=== PATIENT | male | born 1940 | race Caucasian/White ===

== ENCOUNTER 2022-03-05 11:05 | Inpatient (IN) ==
[2022-03-05] MEDS ORDERED: SODIUM CHLORIDE 0.9% 500 ML IV STA (11:23)
[2022-03-05] MEDS ORDERED: ONDANSETRON INJ 2 MG/ML 2 ML VIAL IV STA (11:23)
[2022-03-05] MEDS ORDERED: MoRPHine SULFATE 4 MG/ML 1 ML CARP\\VIAL IV PRN (11:24)
[2022-03-05] MEDS ORDERED: MoRPHine SULFATE 4 MG/ML 1 ML CARP\\VIAL IV STA (11:24)
--- NOTE | 2022-03-05 11:29 | Emergency Department Note ---
Impression & Plan Subcapital fracture of right hip ED Provider Note NAME: SHIRA CISNEROS AGE: 81 SEX: M : 1940 ARRIVES VIA: Ambulance INFORMANT: Patient, ED PROVIDER(S): Wilner Carlos DO CHIEF COMPLAINT: Fall HPI: The patient is an 81-year-old male who presents emergency department for an evaluation of hip pain. The patient had a fall from a seated position and landed on his right side. He has very severe right hip pain and is not able to stand. He presented via BLS. The patient did not strike his head. He denies having any chest pain or difficulty breathing at this time. Patient states the pain is moderate to severe and worsens with any ambulation or trying to move his right hip. Has had no fevers. He has been compliant with his usual outpatient medications. He was scheduled to have some testing done today including a chest x-ray. He states he has had no cough. He denies having any lower extremity swelling pain or numbness. ROS: See above HPI for pertinent positives & negatives. A total of 10 systems reviewed and were otherwise negative. PAST MEDICAL HISTORY: See Below PAST SURGICAL HISTORY: See Below FAMILY HISTORY: See Below SOCIAL HISTORY: See Below HOME MEDICATIONS: See Below ALLERGIES: See Below VITALS: See Below PHYSICAL EXAMINATION: GENERAL: The patient is awake and alert. He is somewhat anxious appearing and appears to be uncomfortable. EYES: The conjunctivae are clear. The pupils are round and reactive. EARS, NOSE, MOUTH AND THROAT: The nose is without any evidence of any deformity. NECK: The neck is nontender and supple. RESPIRATORY: Normal respiratory effort is noted there is no evidence of wheezing rhonchi or rales CARDIOVASCULAR: Regular rate and rhythm was noted to auscultation. Systolic murmur was appreciated. GASTROINTESTINAL: The abdomen is soft. Abdomen is nontender. MUSCULOSKELETAL/EXTREMITIES: The right lower extremity is shortened but not significantly rotated. The patient resists any range of motion testing of the right hip. There is no deformity of the thigh. SKIN: There is no obvious evidence of any rash. Pedal edema was noted. Skin is warm and dry. Pulses are symmetric in both feet. NEUROLOGIC: Patient is awake alert and oriented x3 MEDICAL DECISION MAKING: The patient is an 81-year-old male who presented to the emergency department for an evaluation after a fall. The patient's history and physical exam appear to be consistent with a right hip fracture. X-rays were obtained and do appear to be consistent with right hip fracture. I discussed patient's laboratory and radiographic studies with him. He was treated with IV pain medication in the emergency department. I discussed his condition with the on-call orthopedic physician as well as the on-call [facility] hospitalist. They have agreed to evaluate the patient in the emergency department for further management and disposition. Triage Nursing notes reviewed. Prior medical records reviewed Vital Signs: reviewed and remarkable for bradycardia. Differential diagnosis: Fracture, subluxation, dislocation, contusion, ligamentous injury, neurovascular, compartment syndrome, rhabdomyolysis, as well as other pathologies. ER treatment provided: See below Diagnostics interpreted by me: ECG: EKG was obtained in the emergency department. My interpretation is sinus bradycardia 57 bpm. There is no ectopy. Right bundle-branch block pattern was noted. This was compared to a tracing from January 19, 2013. Bundle branch block is new compared to the earlier tracing. Otherwise no changes were noted. Cardiac Monitoring: An order was placed for continuous cardiac monitoring. The monitor shows a rate of 55 bpm with sinus rhythm. Laboratory studies: As stated above and show below. Imaging studies: See below Consultation(s): I discussed this case with Dr. Bhakta who is on-call for the orthopedic group that the patient's family requested. I discussed this case with Dr. Simon who is on-call for the [facility]ist group. Past Med/Surg History Medical History COPD (chronic obstructive pulmonary disease) Coronary artery disease Diabetes High cholesterol Hypertension Surgical History S/P CABG (coronary artery bypass graft) Social History Smoking Status: Never smoker Feels Safe at Home: Yes Allergies Allergies Allergy/AdvReac Type Severity Reaction Status Date / Time Penicillins Allergy Intermediate RASH ALONE Verified 03/05/22 15:20 aspirin Allergy Unknown BUT Verified 03/05/22 15:20 PATIENT TAKES AGGRENOX AT HOME? Home Meds Home Medications Medication Instructions Recorded Confirmed albuterol sulfate 90 mcg/actuation 1 puff INHALATION DAILY 03/05/22 03/05/22 aerosol inhaler aspirin 25 mg-dipyridamole 200 mg 1 cap PO DAILY 03/05/22 03/05/22 capsule,ext.release 12 hr multiphase cholecalciferol (vitamin D3) 1,250 1,250 mcg PO WK 03/05/22 03/05/22 mcg (50,000 unit) capsule dexamethasone 4 mg tablet 4 mg PO DAILY 03/05/22 03/05/22 furosemide 40 mg tablet 40 mg PO QAM 03/05/22 03/05/22 insulin aspart U-100 100 unit/mL 20 unit SUBCUT TID 03/05/22 03/05/22 (3 mL) subcutaneous pen (Novolog Flexpen U-100 Insulin aspart) insulin aspart U-100 100 unit/mL 40 unit SUBCUT HS 03/05/22 03/05/22 (3 mL) subcutaneous pen (Novolog Flexpen U-100 Insulin aspart) metoprolol succinate 50 mg 50 mg PO BID 03/05/22 03/05/22 tablet,extended release 24 hr nitroglycerin 0.4 mg sublingual 0.4 mg SUBLINGUAL DAILY PRN 03/05/22 03/05/22 tablet pantoprazole 40 mg tablet,delayed 40 mg PO QAM 03/05/22 03/05/22 release potassium chloride 10 mEq 20 meq PO BID 03/05/22 03/05/22 capsule,extended release simvastatin 20 mg tablet 20 mg PO HS 03/05/22 03/05/22 tramadol 50 mg tablet 50 mg PO BID 03/05/22 03/05/22 trazodone 50 mg tablet 25 mg PO HS 03/05/22 03/05/22 umeclidinium 62.5 mcg-vilanterol 1 ea INHALATION DAILY 03/05/22 03/05/22 25 mcg/actuation powdr for inhalation (Anoro Ellipta) vitamins A,C,D-xzhj-slicih 7,160 1 tab PO QAM 03/05/22 03/05/22 unit-113 mg-100 unit tablet (PreserVision AREDS) Results & Data (ED) Vital Signs Vital Signs - 24 hr 03/05/22 11:12 03/05/22 11:33 03/05/22 12:00 Temperature 36.9 C Temperature Source Oral Pulse Rate 57 L 59 L 58 L Pulse Rate from SpO2 Sensor 58 L 58 L Pulse Rhythm Regular Pulse Strength Normal Respiratory Rate 22 19 19 Respiratory Effort / Characteristics Non-Labored Respiratory Depth Normal Respiratory Pattern Regular Blood Pressure 160/61 H 138/51 L 148/62 H Blood Pressure Mean 94 80 90 Blood Pressure Position Lying Pulse Oximetry 94 97 94 Oxygen Delivery Method Room Air Room Air Room Air Oxygen Flow Rate Sepsis Recent Fever Within 48 Hours No Sepsis New/Unexplained Change in Mental Status No Sepsis Action Taken by Nursing No Action Required 03/05/22 12:30 03/05/22 13:00 03/05/22 13:30 Temperature Temperature Source Pulse Rate 56 L 56 L 57 L Pulse Rate from SpO2 Sensor 56 L 56 L 57 L Pulse Rhythm Pulse Strength Respiratory Rate 15 19 18 Respiratory Effort / Characteristics Respiratory Depth Respiratory Pattern Blood Pressure 115/63 121/89 133/59 L Blood Pressure Mean 80 99 83 Blood Pressure Position Pulse Oximetry 91 95 93 Oxygen Delivery Method Room Air Room Air Room Air Oxygen Flow Rate Sepsis Recent Fever Within 48 Hours Sepsis New/Unexplained Change in Mental Status Sepsis Action Taken by Nursing 03/05/22 14:00 03/05/22 14:30 03/05/22 14:53 Temperature Temperature Source Pulse Rate 56 L 59 L Pulse Rate from SpO2 Sensor 57 L 57 L Pulse Rhythm Pulse Strength Respiratory Rate 18 20 Respiratory Effort / Characteristics Respiratory Depth Respiratory Pattern Blood Pressure 135/74 145/67 H Blood Pressure Mean 94 93 Blood Pressure Position Pulse Oximetry 94 88 L 98 Oxygen Delivery Method Room Air Room Air Nasal Cannula Oxygen Flow Rate 2 Sepsis Recent Fever Within 48 Hours Sepsis New/Unexplained Change in Mental Status Sepsis Action Taken by Nursing 03/05/22 15:00 Temperature Temperature Source Pulse Rate 55 L Pulse Rate from SpO2 Sensor 55 L Pulse Rhythm Pulse Strength Respiratory Rate 20 Respiratory Effort / Characteristics Respiratory Depth Respiratory Pattern Blood Pressure 126/61 Blood Pressure Mean 82 Blood Pressure Position Pulse Oximetry 99 Oxygen Delivery Method Nasal Cannula Oxygen Flow Rate 2 Sepsis Recent Fever Within 48 Hours Sepsis New/Unexplained Change in Mental Status Sepsis Action Taken by Long Term Medications Current Medication List: was personally reviewed by me Laboratory Data Attestation: I reviewed the patient's lab results. Result diagrams: 03/05/22 11:25 03/05/22 11:25 Lab Results 03/05/22 03/05/22 03/05/22 Range/Units 11:25 11:25 11:25 WBC 9.41 (4.8-10.8) K/uL RBC 4.18 L (4.7-6.1) M/uL Hgb 13.0 L (14.0-18.0) g/dL Hct 40.3 L (42-52) % MCV 96.4 (80-100) fL MCH 31.1 (25-34) pg MCHC 32.3 (32-36) g/dL RDW Std Deviation 45.9 (36.4-46.3) fL RDW Coeff of Eliana 13.2 (11.5-14.5) % Plt Count 151 (130-400) K/uL MPV 12.2 H (7.4-10.4) fL Immature Gran % (Auto) 0.2 % Neut % (Auto) 81.6 % Lymph % (Auto) 10.6 % Hughes % (Auto) 7.0 % Eos % (Auto) 0.5 % Baso % (Auto) 0.1 % Neut # (Auto) 7.67 H (1.4-6.5) K/uL Lymph # (Auto) 1.00 L (1.2-3.4) K/uL Hughes # (Auto) 0.66 H (0.11-0.59) K/uL Eos # (Auto) 0.05 (0-0.5) K/uL Baso # (Auto) 0.01 (0-0.2) K/uL Immature Gran # (Auto) 0.02 (0.00-0.02) K/uL PT 11.5 (9.0-12.0) Seconds INR 1.1 (0.9-1.1) APTT 23.9 (21.0-31.0) Seconds PTT Ratio 0.9 Sodium 140 (136-145) mmol/L Potassium 4.1 (3.5-5.1) mmol/L Chloride 102 (98-107) mmol/L Carbon Dioxide 33 H (21-32) mmol/L Anion Gap 5 (3-11) BUN 11 (6-23) mg/dl Creatinine 0.97 (0.6-1.4) mg/dl Est Cr Clr Drug Dosing 53.0 ml/min Est GFR ( Amer) 83.9 ml/min Est GFR (Non-Af Amer) 72.4 ml/min BUN/Creatinine Ratio 11.3 (10-20) Glucose 102 H (70-99(Fasting)) mg/dl Calcium 9.1 (8.5-10.1) mg/dl Total Bilirubin 0.5 (0.2-1.0) mg/dl AST 20 (13-39) U/L ALT 8 (7-52) U/L Alkaline Phosphatase 98 (34-104) U/L Troponin I High Sens 9.8 (0-20) pg/ml Total Protein 6.8 (6.0-8.3) gm/dl Albumin 3.8 (3.4-5.0) gm/dl Globulin 3.0 (2.5-4.0) gm/dl Albumin/Globulin Ratio 1.3 (0.9-2) Lipase 3 L (11-82) U/L SARS-CoV-2, RNA, NAAT (NEGATIVE) 03/05/22 Range/Units 11:42 WBC (4.8-10.8) K/uL RBC (4.7-6.1) M/uL Hgb (14.0-18.0) g/dL Hct (42-52) % MCV (80-100) fL MCH (25-34) pg MCHC (32-36) g/dL RDW Std Deviation (36.4-46.3) fL RDW Coeff of Eliana (11.5-14.5) % Plt Count (130-400) K/uL MPV (7.4-10.4) fL Immature Gran % (Auto) % Neut % (Auto) % Lymph % (Auto) % Hughes % (Auto) % Eos % (Auto) % Baso % (Auto) % Neut # (Auto) (1.4-6.5) K/uL Lymph # (Auto) (1.2-3.4) K/uL Hughes # (Auto) (0.11-0.59) K/uL Eos # (Auto) (0-0.5) K/uL Baso # (Auto) (0-0.2) K/uL Immature Gran # (Auto) (0.00-0.02) K/uL PT (9.0-12.0) Seconds INR (0.9-1.1) APTT (21.0-31.0) Seconds PTT Ratio Sodium (136-145) mmol/L Potassium (3.5-5.1) mmol/L Chloride (98-107) mmol/L Carbon Dioxide (21-32) mmol/L Anion Gap (3-11) BUN (6-23) mg/dl Creatinine (0.6-1.4) mg/dl Est Cr Clr Drug Dosing ml/min Est GFR ( Amer) ml/min Est GFR (Non-Af Amer) ml/min BUN/Creatinine Ratio (10-20) Glucose (70-99(Fasting)) mg/dl Calcium (8.5-10.1) mg/dl Total Bilirubin (0.2-1.0) mg/dl AST (13-39) U/L ALT (7-52) U/L Alkaline Phosphatase (34-104) U/L Troponin I High Sens (0-20) pg/ml Total Protein (6.0-8.3) gm/dl Albumin (3.4-5.0) gm/dl Globulin (2.5-4.0) gm/dl Albumin/Globulin Ratio (0.9-2) Lipase (11-82) U/L SARS-CoV-2, RNA, NAAT NEGATIVE (NEGATIVE) Administered Medications Discontinued Medications Sodium Chloride (Nss) 500 mls @ 999 mls/hr IV .Q31M STA Stop: 03/05/22 11:53 Last Infusion: 03/05/22 12:07 Dose: 0 mls/hr Documented by: [id number] Admin: 03/05/22 11:36 Dose: 999 mls/hr Documented by: [id number] Morphine Sulfate (Morphine Sulfate 4 Mg/Ml 1 Ml Carp\Vial) 4 mg IV NOW STA Stop: 03/05/22 11:25 Last Admin: 03/05/22 11:36 Dose: 4 mg Documented by: [id number] Ondansetron HCl (Ondansetron Inj 2 Mg/Ml 2 Ml Vial) 4 mg IV NOW STA Stop: 03/05/22 11:24 Last Admin: 03/05/22 11:36 Dose: 4 mg Documented by: [id number] Imaging Data Radiologist's Impression: Chest X-Ray 03/05/22 11:23 XR chest 1V portable CLINICAL HISTORY: Fall. Right hip fracture. COMPARISON STUDY: Chest radiograph January 19, 2013. FINDINGS: There are median sternotomy wires and mediastinal surgical clips. Ther e is made of cardiomegaly without evidence for pulmonary edema. There is no pneumothorax. No definite pleural effusion. Calcifications within the right upper lobe are benign. Minimal left basilar opacity favors atelectasis. Elevation of both humeral heads is incidentally noted. Right hilar prominence is unchanged. Multiple old left-sided rib fractures are incidentally noted. IMPRESSION: No acute cardiopulmonary findings. ACT 112: Negative or not required by law. Electronically signed by: Massimo Mckeon M.D. 03/05/2022 2:06 PM Hip X-Ray 03/05/22 11:23 XR hip RT min 2V CLINICAL HISTORY: fall COMPARISON: Pelvis radiograph January 20, 2013. FINDINGS: Left hip arthroplasty is partially imaged. Note is made of an acute moderately displaced right femoral neck fracture. Alignment of the right hip is otherwise anatomic. No acute fracture is identified within visualized portions of the pelvis. IMPRESSION: Acute displaced right femoral neck fracture. ACT 112: Negative or not required by law. Electronically signed by: Massimo Mckeon M.D. 03/05/2022 2:07 PM Discharge Plan Visit Data Chief Complaint: Fall ED Provider: Wilner Carlos Discharge Problem: Subcapital fracture of right hip Patient Disposition: Being Evaluated by Hospitalist Forms Stand Alone Forms: My [facility] [employer] Prescriptions Prescriptions: No Action furosemide 40 mg tablet 40 mg PO QAM RF: 0 aspirin-dipyridamole 25-200 mg capsule, ER multiphase 12 hr 1 cap PO DAILY RF: 0 potassium chloride 10 mEq capsule, extended release 20 meq PO BID RF: 0 trazodone 50 mg Tablet 25 mg PO HS RF: 0 metoprolol succinate 50 mg tablet extended release 24 hr 50 mg PO BID RF: 0 tramadol 50 mg tablet 50 mg PO BID RF: 0 pantoprazole 40 mg tablet,delayed release (DR/EC) 40 mg PO QAM RF: 0 simvastatin 20 mg tablet 20 mg PO HS RF: 0 dexamethasone 4 mg tablet 4 mg PO DAILY RF: 0 nitroglycerin 0.4 mg tablet, sublingual 0.4 mg sublingual DAILY PRN (Reason: Chest Pain) RF: 0 albuterol sulfate 90 mcg/actuation HFA aerosol inhaler 1 puff INHALATION DAILY RF: 0 insulin aspart U-100 [Novolog Flexpen U-100 Insulin] 100 unit/mL (3 mL) insulin pen 20 unit subcut TID RF: 0 insulin aspart U-100 [Novolog Flexpen U-100 Insulin] 100 unit/mL (3 mL) insulin pen 40 unit SUBCUT HS RF: 0 cholecalciferol (vitamin D3) 1,250 mcg (50,000 unit) capsule 1,250 mcg PO WK RF: 0 PreserVision AREDS 7,160 unit- 113 mg-100 unit Tablet 1 tab PO QAM RF: 0 Anoro Ellipta 62.5-25 mcg/actuation blister with device 1 ea INHALATION DAILY RF: 0 Referrals Referrals: PCP,NO [Physician] -
[2022-03-05 12:09] LABS: INR 1.1 (0.9-1.1); Partial Thromboplastin Ratio 0.9; Partial Thromboplastin Time 23.9 Seconds (21.0-31.0); Prothrombin Time 11.5 Seconds (9.0-12.0)
[2022-03-05 12:16] LABS: Basophils # (auto) 0.01 K/uL (0-0.2); Basophils % (auto) 0.1 %; Eosinophils # (auto) 0.05 K/uL (0-0.5); Eosinophils % (auto) 0.5 %; Hematocrit (blood only) 40.3 % (42-52); Immature Granulocytes # (auto) 0.02 K/uL (0.00-0.02); Immature Granulocytes % (auto) 0.2 %; Lymphocytes % (auto) 10.6 %; Mean Corpuscular Hemoglobin 31.1 pg (25-34); Mean Corpuscular Hgb Conc 32.3 g/dL (32-36); Mean Corpuscular Volume 96.4 fL (80-100); Mean Platelet Volume 12.2 fL (7.4-10.4); Monocytes # (auto) 0.66 K/uL (0.11-0.59); Neutrophils # (auto) 7.67 K/uL (1.4-6.5); Neutrophils % (auto) 81.6 %; Platelet Count 151 K/uL (130-400); RDW Coefficient of Variation 13.2 % (11.5-14.5); RDW Standard Deviation 45.9 fL (36.4-46.3); Red Blood Count 4.18 M/uL (4.7-6.1); White Blood Count 9.41 K/uL (4.8-10.8)
[2022-03-05 12:22] LABS: Troponin I High Sensitivity 9.8 pg/ml (0-20)
[2022-03-05 12:23] LABS: Albumin Globulin Ratio 1.3 (0.9-2); Albumin Level 3.8 gm/dl (3.4-5.0); BUN Creatinine Ratio 11.3 (10-20); Bilirubin,Total 0.5 mg/dl (0.2-1.0); Calcium 9.1 mg/dl (8.5-10.1); Est GFR (African American) 83.9 ml/min; Est GFR (Non-African American) 72.4 ml/min; Potassium 4.1 mmol/L (3.5-5.1); Total Protein 6.8 gm/dl (6.0-8.3)
--- NOTE | 2022-03-05 13:27 | Electrocardiogram Report ---
Test Reason : Blood Pressure : / mmHG Vent. Rate : 057 BPM Atrial Rate : 057 BPM P-R Int : 196 ms QRS Dur : 132 ms QT Int : 480 ms P-R-T Axes : 068 -36 028 degrees QTc Int : 467 ms Poor data quality, interpretation may be adversely affected Sinus bradycardia Left axis deviation Right bundle branch block Abnormal ECG When compared with ECG of 19-JAN-2013 19:29, Vent. rate has decreased BY 34 BPM Right bundle branch block is now Present Confirmed by Wilner Kirby ([id number]) on 03/05/2022 1:27:18 PM Referred By: Confirmed By:Wilner Kirby
--- NOTE | 2022-03-05 14:07 | XRay Report ---
XR chest 1V portable CLINICAL HISTORY: Fall. Right hip fracture. COMPARISON STUDY: Chest radiograph January 19, 2013. FINDINGS: There are median sternotomy wires and mediastinal surgical clips. There is made of cardiome wan without evidence for pulmonary edema. There is no pneumothorax. No definite pleural effusion. Ca lcifications within the right upper lobe are benign. Minimal left basilar opacity favors atelectasis. Elevation of both humeral heads is incidentally noted. Right hilar prominence is unchanged. Multiple old left-sided rib fractures are incidentally noted. IMPRESSION: No acute cardiopulmonary findings. ACT 112: Negative or not required by law. Electronically signed by: Massimo Mckeon M.D. 03/05/2022 2:06 PM
--- NOTE | 2022-03-05 14:08 | XRay Report ---
XR hip RT min 2V CLINICAL HISTORY: fall COMPARISON: Pelvis radiograph January 20, 2013. FINDINGS: Left hip arthroplasty is partially imaged. Note is made of an acute moderately displaced r ight femoral neck fracture. Alignment of the right hip is otherwise anatomic. No acute fracture is id entified within visualized portions of the pelvis. IMPRESSION: Acute displaced right femoral neck fracture. ACT 112: Negative or not required by law. Electronically signed by: Massimo Mckeon M.D. 03/05/2022 2:07 PM
--- NOTE | 2022-03-05 18:40 | History and Physical Report ---
DATE OF ADMISSION: 03/05/2022. CHIEF COMPLAINT: Status post fall and right hip fracture. HISTORY OF PRESENT ILLNESS: An 81-year-old male with past medical history significant for type 2 diabetes, COPD, CAD, diastolic CHF, hypertension, history of TIA, obesity, GERD, history of urinary retention, BPH, history of closed fracture of left clavicle, history of alcoholism in the past and leukocytosis, history of tobacco use, history of fall, history of generalized weakness, legal blindness. Currently residing with his daughter and her , comes with a fall. The patient ambulates with a walker. He was trying to get up from the bed today when he fell, did not lost consciousness, his daughter and his son-in-law to help him to get up and brought him here and found to have right hip fracture. Currently, resting comfortably and hemodynamically stable. Denies any headache, no dizziness. He can only see short distance, he is legally blind, no runny nose, no sore throat. He is having a cough for 1 week. He says he has some low-grade fever yesterday, but daughter thinks he did not had any fever yesterday. His appetite is okay. Eating, drinking and swallows okay as per daughter. The patient denies any chest pain. He says sometimes he gets short of breath. No nausea, no vomiting, no abdominal pain, normal bowel and bladder movements, hemodynamically stable. ALLERGIES: PENICILLINS, ASPIRIN. PAST MEDICAL HISTORY: As mentioned above. PAST SURGICAL HISTORY: Right inguinal herniorrhaphy. MEDICATIONS: The patient is on albuterol 1 puff inhalation daily, aspirin, Aggrenox 1 capsule daily, vitamin D 1250 mcg p.o. weekly, dexamethasone 4 mg p.o. daily, Furosemide 40 mg p.o. a.m., insulin 20 units subcutaneous t.i.d. and 40 units subcutaneous at bedtime, metoprolol 50 mg p.o. b.i.d., Nitroglycerin 0.4 mg sublingual p.r.n., Protonix 40 mg p.o. a.m., potassium chloride 20 mEq p.o. b.i.d., simvastatin 20 mg p.o. at bedtime, tramadol 50 mg p.o. b.i.d., trazodone 25 mg p.o. at bedtime, Anoro Ellipta 1 inhalation daily, vitamin, PreserVision AREDS 1 capsule daily. FAMILY HISTORY: Significant for no family history on file. SOCIAL HISTORY: Currently lives with daughter. Former smoker, who quit in 1992. Quit alcohol in 2009. REVIEW OF SYSTEMS: As per HPI. Rest of review of system is negative. PHYSICAL EXAMINATION: GENERAL: The patient is of moderate build, not in acute distress. VITAL SIGNS: Temperature 36.9, pulse 55, respiratory rate 20, blood pressure 126/61, oxygen 99% on 2 liters. HEENT: Pupils equal, round and reactive to light. Oral mucosa dry. NECK: No JVD, no neck masses. CARDIOVASCULAR: S1 and S2 heard. Regular rate and rhythm. No murmur, no gallop. RESPIRATORY SYSTEM: Normal AP diameter. No accessory muscle use. No wheezing, no crackles. ABDOMEN: Soft. Bowel sounds are present, nontender, no distention. CENTRAL NERVOUS SYSTEM: Alert and oriented. Speech is clear. No facial droop. Obeys simple commands. Moves extremities except for right lower extremity. EXTREMITIES: Right lower extremity is shortened. No edema, no erythema seen. LABORATORY: WBC 9.4, hemoglobin 13, hematocrit 40.3, platelets 151. PT 11.5, INR 1.1, APTT 23.9. Sodium 140, potassium 4.1, chloride 102, bicarbonate 33, BUN 11, creatinine 0.9, serum glucose 102, calcium 9.1, total bilirubin 0.5, AST 20, ALT 8, alkaline phosphatase 98. Troponin-I high sensitivity 9.8. Lipase 3. SARS-CoV-2 rapid test negative. Hip x-ray, right hip x-ray acute displaced right femoral neck fracture. Chest x-ray, no acute cardiopulmonary findings. EKG: Sinus bradycardia, left axis deviation, right bundle-branch block at a rate of 57. ASSESSMENT AND PLAN: This is an 81-year-old male who presents with fall and right hip fracture. 1. Status post mechanical fall, right hip fracture. The patient is legally blind, ambulates with a walker, poor ambulatory status. We will keep him n.p.o. after midnight, IV gentle fluids, pain control with IV Dilaudid p.r.n. His labs are okay. EKG seems okay. Because of his comorbid conditions, the patient will be at moderate risk for any procedures. Ortho consulted. 2. History of chronic diastolic congestive heart failure. Continue his Lasix and potassium supplements. The patient is getting gentle fluids. Monitor for any volume overload. 3. History of chronic obstructive pulmonary disease. Continue home inhalers.Decadron? 4. Diabetes. We will hold his home insulin and place him on Lantus 5 units b.i.d., insulin sliding scale. Follow the blood sugars and follow HbA1c levels and adjust the insulin regimen. Currently npo. The patient and daughter does not know why he is on Decadron, mostly likely given for chronic obstructive pulmonary disease. If needed, we will place him on stress dose steroids. 5. History of coronary artery disease, on Aggrenox and on beta simi, statin. 6. History of transient ischemic attack, on aspirin and statin. 7. History of hypertension. On metoprolol and diuretics. We will monitor the blood pressure. 8. History of benign prostatic hyperplasia. We will monitor for any urinary retention. 9. Legally blind, ambulatory dysfunction, PT, OT when stable. 10. Deep venous thrombosis prophylaxis as per Orthopedics. DISPOSITION: Closely monitor in the medical floor. PT/OT prior to discharge. Social Service to help with discharge planning. CODE STATUS: DNR/DNI as per discussion with the daughter. Job ID: [id number] [facility]
[2022-03-05] MEDS ORDERED: ACETAMINOPHEN 325 MG TAB PO PRN (20:02)
[2022-03-05] MEDS ORDERED: NITROGLYCERIN SL 0.4 MG/TAB TAB SL PRN (20:02)
[2022-03-05] MEDS ORDERED: HYDROmorphone INJ 0.5 MG/0.5 ML SYR IV PRN (20:02)
[2022-03-05] MEDS ORDERED: POLYETHYLENE (MIRALAX) 17 GM PACK PO PRN (20:02)
[2022-03-05] MEDS ORDERED: GLUCOSE 40% GEL 15 GM TUBE PO PRN (21:00)
[2022-03-05] MEDS ORDERED: CARBOHYDRATES FOR HYPOGLYCEMIA PO PRN (21:00)
[2022-03-05] MEDS ORDERED: DEXTROSE 50% 50 ML SYRINGE IV PRN (21:00)
[2022-03-05] MEDS ORDERED: GLUCAGON FOR INJ 1 MG VIAL IM PRN (21:00)
[2022-03-05] MEDS ORDERED: GLUCOSE 10 TABS/TUBE PO PRN (21:00)
[2022-03-05] MEDS: traMADol HCL 50 MG TABLET PO SCH (21:15)
[2022-03-05] MEDS: SODIUM CHLORIDE 0.9% 1000ML 1,000 ML IV SCH (21:44)
[2022-03-05] MEDS: traZODone HCL 50 MG TAB PO SCH (21:47)
[2022-03-05] MEDS: SIMVASTATIN 20 MG TAB PO SCH (21:48)
[2022-03-05] MEDS: METOPROLOL SUCC 50MG EXT REL TAB PO SCH (21:48)
[2022-03-05] MEDS: POTASSIUM CHLORIDE CRTAB 20 MEQ TABCR PO SCH (21:48)
[2022-03-05] MEDS: INSULIN GLARGINE SOLOSTAR 100 UNITS/ML 3 ML PEN SC SCH (21:53)
[2022-03-05] MEDS: INSULIN ASPART PER UNIT SC SCH (22:09)
[2022-03-06] MEDS: SODIUM CHLORIDE 0.9% 1000ML 1,000 ML IV SCH ×2 (05:42→22:09)
[2022-03-06 06:00] LABS: Basophils # (auto) 0.01 K/uL (0-0.2); Basophils % (auto) 0.1 %; Eosinophils # (auto) 0.13 K/uL (0-0.5); Eosinophils % (auto) 1.1 %; Hematocrit (blood only) 37.4 % (42-52); Hemoglobin 11.8 g/dL (14.0-18.0); Immature Granulocytes # (auto) 0.04 K/uL (0.00-0.02); Immature Granulocytes % (auto) 0.3 %; Lymphocytes # (auto) 1.09 K/uL (1.2-3.4); Lymphocytes % (auto) 8.8 %; Mean Corpuscular Hemoglobin 30.4 pg (25-34); Mean Corpuscular Hgb Conc 31.6 g/dL (32-36); Mean Corpuscular Volume 96.4 fL (80-100); Mean Platelet Volume 12.2 fL (7.4-10.4); Monocytes % (auto) 10.5 %; Neutrophils # (auto) 9.79 K/uL (1.4-6.5); Neutrophils % (auto) 79.2 %; Platelet Count 128 K/uL (130-400); Platelet Estimate Normal (Normal); RDW Coefficient of Variation 13.2 % (11.5-14.5); RDW Standard Deviation 46.3 fL (36.4-46.3); Red Blood Count 3.88 M/uL (4.7-6.1); White Blood Count 12.36 K/uL (4.8-10.8)
[2022-03-06 06:02] LABS: BUN Creatinine Ratio 13.5 (10-20); Calcium 8.3 mg/dl (8.5-10.1); Creatinine Clr Calc Pharmacy 53.5 ml/min; Est GFR (Non-African American) 73.3 ml/min; Magnesium 1.8 mg/dl (1.7-2.4); Potassium 4.2 mmol/L (3.5-5.1)
[2022-03-06] MEDS: ALBUTEROL HFA 8 GM INHALER INH SCH (07:33)
[2022-03-06] MEDS ORDERED: Nursing to Pharmacy Communication SCH ×2 (07:45→15:15)
[2022-03-06] MEDS: dexAMETHasone 4 MG TAB PO SCH (08:57)
[2022-03-06] MEDS: POTASSIUM CHLORIDE CRTAB 20 MEQ TABCR PO SCH ×2 (08:57→22:11)
[2022-03-06] MEDS: METOPROLOL SUCC 50MG EXT REL TAB PO SCH ×2 (08:57→22:10)
[2022-03-06] MEDS: DIPYRIDAMOLE/ASPIRIN CAP PO SCH (08:57)
[2022-03-06] MEDS: FUROSEMIDE 40 MG TAB PO SCH (08:57)
[2022-03-06] MEDS: CEROVITE ADV FORMULA TAB PO SCH (08:57)
[2022-03-06] MEDS: PANTOprazole 40 MG TAB PO SCH (08:57)
[2022-03-06] MEDS: UMECLIDINIUM/VILANTEROL 62.5/25MCG 7 PUFFS/INHALER INH SCH (08:58)
--- NOTE | 2022-03-06 09:02 | Orthopedic Consultation ---
Date of Consultation March 06, 2022 Assessment & Plan (1) Displaced fracture of right femoral neck: He has a displaced right femoral neck fracture. This will require hip hemiarthroplasty to restore the ability to ambulate. This was discussed with the patient and his daughter, who agree with the plan. Risks, benefits, and alternatives of surgery were explained in detail. The surgical procedure, as well as postoperative recovery and rehabilitation, was also explained in detail. Risks include bleeding; infection; damage to surrounding structures such as nerves, blood vessels, and tendons that run in the area; persistent pain or stiffness; hardware failure; dislocation; leg length discrepancy; blood clots; or need for further surgery. The patient and daughter understand all of this and wishes to proceed with surgery. Informed consent was obtained. History of Present Illness Reason for Consultation: Right hip injury Attending Physician: Rony Parham MD History of Present Illness Mr. Huerta is an 81 year old male who injured his right hip during a ground-level fall. He had immediate pain and inability to bear weight. He normally ambulates with a walker. Allergies Allergy/AdvReac Type Severity Reaction Status Date / Time Penicillins Allergy Intermediate RASH ALONE Verified 03/05/22 15:20 aspirin Allergy Unknown BUT Verified 03/05/22 15:20 PATIENT TAKES AGGRENOX AT HOME? Home Medications Medication Instructions Recorded Confirmed Type albuterol sulfate 90 mcg/actuation 1 puff INHALATION DAILY 03/05/22 03/05/22 History aerosol inhaler aspirin 25 mg-dipyridamole 200 mg 1 cap PO DAILY 03/05/22 03/05/22 History capsule,ext.release 12 hr multiphase cholecalciferol (vitamin D3) 1,250 1,250 mcg PO WK 03/05/22 03/05/22 History mcg (50,000 unit) capsule dexamethasone 4 mg tablet 4 mg PO DAILY 03/05/22 03/05/22 History furosemide 40 mg tablet 40 mg PO QAM 03/05/22 03/05/22 History insulin aspart U-100 100 unit/mL 20 unit SUBCUT TID 03/05/22 03/05/22 History (3 mL) subcutaneous pen (Novolog Flexpen U-100 Insulin aspart) insulin aspart U-100 100 unit/mL 40 unit SUBCUT HS 03/05/22 03/05/22 History (3 mL) subcutaneous pen (Novolog Flexpen U-100 Insulin aspart) metoprolol succinate 50 mg 50 mg PO BID 03/05/22 03/05/22 History tablet,extended release 24 hr nitroglycerin 0.4 mg sublingual 0.4 mg SUBLINGUAL DAILY PRN 03/05/22 03/05/22 History tablet pantoprazole 40 mg tablet,delayed 40 mg PO QAM 03/05/22 03/05/22 History release potassium chloride 10 mEq 20 meq PO BID 03/05/22 03/05/22 History capsule,extended release simvastatin 20 mg tablet 20 mg PO HS 03/05/22 03/05/22 History tramadol 50 mg tablet 50 mg PO BID 03/05/22 03/05/22 History trazodone 50 mg tablet 25 mg PO HS 03/05/22 03/05/22 History umeclidinium 62.5 mcg-vilanterol 1 ea INHALATION DAILY 03/05/22 03/05/22 History 25 mcg/actuation powdr for inhalation (Anoro Ellipta) vitamins A,C,N-plao-szgmpi 7,160 1 tab PO QAM 03/05/22 03/05/22 History unit-113 mg-100 unit tablet (PreserVision AREDS) Patient History Medical History COPD (chronic obstructive pulmonary disease) Coronary artery disease Diabetes High cholesterol Hypertension Surgical History S/P CABG (coronary artery bypass graft) Social History Smoking Status: Former smoker Cigarettes Per Day: 3 packs a day; Second Hand Exposure: Yes; Do You Dip or Chew Tobacco: Yes (1-2 boxes per day); Tobacco Cessation Education Requested by Patient: No Hx Alcohol Use: No Hx Substance Use: Yes Preferred Language: Kinyarwanda Design Architect Required: No Beliefs That Will Affect Care: None Current Living Situation: Family Current Living Situation Comment: lives with daughter Other Information That Helps Us Care for You: No Feels Safe at Home: Yes Safety Concerns: Feels Safe At This Time Assistive Devices: Denture - Upper, Denture - Lower and Walker Physical Exam Physical Exam: General exam: Patient is lying in bed comfortably in no yfn arent distress. He does endorse pain in his right hip. He is oriented to place, but disoriented to time. Examination of the right hip shows no open wounds. There is shortening and external rotation of the leg. There is mild swelling and tenderness to palpation of the thigh and hip area. Compartments are soft and compressible. Intact ankle dorsiflexion and plantarflexion. Results & Data ([facility]) Vital Signs (Past 12 Hours) Vital Signs Temp Pulse Resp BP Pulse Ox 03/06/22 07:19 36.7 C 55 L 18 149/66 H 92 03/05/22 22:02 36.6 C 74 18 176/69 H 94 Diagnostic Findings New x-rays of the right hip were reviewed. They show a displaced femoral neck fracture.
[2022-03-06] MEDS: INSULIN GLARGINE SOLOSTAR 100 UNITS/ML 3 ML PEN SC SCH ×2 (09:03→22:15)
[2022-03-06] MEDS: traMADol HCL 50 MG TABLET PO SCH ×2 (09:05→22:23)
[2022-03-06] MEDS: INSULIN ASPART PER UNIT SC SCH ×5 (09:52→22:22)
[2022-03-06] MEDS ORDERED: INSULIN ASPART PER UNIT ONE (09:58)
[2022-03-06] MEDS ORDERED: fentaNYL citrate 100 MCG/2 ML VIAL ONE (10:34)
[2022-03-06] MEDS ORDERED: SUCCINYLCHOLINE CHLORIDE 20 MG/ML 10 ML VIAL IV ONE (10:34)
[2022-03-06] MEDS ORDERED: PROPOFOL IV EMULSION 10 MG/ML 20 ML VIAL IV ONE (10:34)
[2022-03-06] MEDS ORDERED: ONDANSETRON INJ 2 MG/ML 2 ML VIAL ONE (10:34)
[2022-03-06] MEDS ORDERED: DEXAMETHASONE SOD INJ 4 MG/ML VIAL ONE (10:34)
--- NOTE | 2022-03-06 11:05 | Anesthesiology Consultation ---
Date of Service March 06, 2022 Assessment & Plan ASA ASA3 Proposed Anesthesia Anesthesia Type: General Risk / Benefits Reviewed With: PT / POA / Parent / Guardian, Accepts Plan and Informed Consent Obtained History Surgery Operation Date: 03/06/22 14:00 Proposed Procedures p Bipolar Hip Prosthesis - Michael Bhakta M.D. Height/Weight Height: 5 ft 6 in Weight: 65 kg Allergies Allergy/AdvReac Type Severity Reaction Status Date / Time Penicillins Allergy Intermediate RASH ALONE Verified 03/05/22 15:20 aspirin Allergy Unknown BUT Verified 03/05/22 15:20 PATIENT TAKES AGGRENOX AT HOME? Medications Home Medications Medication Instructions Recorded Confirmed Last Taken albuterol sulfate 90 mcg/actuation 1 puff INHALATION DAILY 03/05/22 03/05/22 Unknown aerosol inhaler aspirin 25 mg-dipyridamole 200 mg 1 cap PO DAILY 03/05/22 03/05/22 Unknown capsule,ext.release 12 hr multiphase cholecalciferol (vitamin D3) 1,250 1,250 mcg PO WK 03/05/22 03/05/22 Unknown mcg (50,000 unit) capsule dexamethasone 4 mg tablet 4 mg PO DAILY 03/05/22 03/05/22 Unknown furosemide 40 mg tablet 40 mg PO QAM 03/05/22 03/05/22 Unknown insulin aspart U-100 100 unit/mL 20 unit SUBCUT TID 03/05/22 03/05/22 Unknown (3 mL) subcutaneous pen (Novolog Flexpen U-100 Insulin aspart) insulin aspart U-100 100 unit/mL 40 unit SUBCUT HS 03/05/22 03/05/22 Unknown (3 mL) subcutaneous pen (Novolog Flexpen U-100 Insulin aspart) metoprolol succinate 50 mg 50 mg PO BID 03/05/22 03/05/22 Unknown tablet,extended release 24 hr nitroglycerin 0.4 mg sublingual 0.4 mg SUBLINGUAL DAILY PRN 03/05/22 03/05/22 Unknown tablet pantoprazole 40 mg tablet,delayed 40 mg PO QAM 03/05/22 03/05/22 Unknown release potassium chloride 10 mEq 20 meq PO BID 03/05/22 03/05/22 Unknown capsule,extended release simvastatin 20 mg tablet 20 mg PO HS 03/05/22 03/05/22 Unknown tramadol 50 mg tablet 50 mg PO BID 03/05/22 03/05/22 Unknown trazodone 50 mg tablet 25 mg PO HS 03/05/22 03/05/22 Unknown umeclidinium 62.5 mcg-vilanterol 1 ea INHALATION DAILY 03/05/22 03/05/22 Unknown 25 mcg/actuation powdr for inhalation (Anoro Ellipta) vitamins A,C,N-rsyb-bqklih 7,160 1 tab PO QAM 03/05/22 03/05/22 Unknown unit-113 mg-100 unit tablet (PreserVision AREDS) Active Medications Generic Name Dose Route Start Last Admin Trade Name Freq PRN Reason Stop Dose Admin Albuterol 1 puffs 03/06/22 09:00 03/06/22 07:33 Albuterol Hfa 8 Gm Inhaler INH 04/05/22 08:59 1 puffs DAILY ANGELA Administration Protocol Dexamethasone 4 mg 03/06/22 09:00 03/06/22 08:57 Dexamethasone 4 Mg Tab PO 03/11/22 08:59 4 mg DAILY ANGELA Administration Dipyridamole/Aspirin 1 cap 03/06/22 09:00 03/06/22 08:57 Dipyridamole/Aspirin Cap PO 04/05/22 08:59 1 cap DAILY ANGELA Administration Furosemide 40 mg 03/06/22 09:00 03/06/22 08:57 Furosemide 40 Mg Tab PO 04/05/22 08:59 40 mg QAM ANGELA Administration Sodium Chloride 1,000 mls @ 80 mls/hr 03/05/22 20:02 03/06/22 05:42 Nss 1000ml IV 04/04/22 20:01 80 mls/hr .[id number] ANGELA Administration Insulin Aspart 0 units 03/06/22 12:00 03/06/22 09:52 Insulin Aspart Per Unit SC 04/05/22 11:59 4 units Q6 ANGELA Administration Insulin Glargine 5 units 03/05/22 21:00 03/06/22 09:03 Insulin Glargine Solostar 100 Units/Ml 3 Ml Pen SC 04/04/22 20:59 5 units BID ANGELA Administration Metoprolol Succinate 50 mg 03/05/22 21:00 03/06/22 08:57 Metoprolol Succ 50mg Ext Rel Tab PO 04/04/22 20:59 50 mg BID ANGELA Administration Multivitamins/Minerals 1 tab 03/06/22 09:00 03/06/22 08:57 Cerovite Adv Formula Tab PO 04/05/22 08:59 1 tab QAM ANGELA Administration Pantoprazole Sodium 40 mg 03/06/22 09:00 03/06/22 08:57 Pantoprazole 40 Mg Tab PO 04/05/22 08:59 40 mg QAM ANGELA Administration Potassium Chloride 20 meq 03/05/22 21:00 03/06/22 08:57 Potassium Chloride Crtab 20 Meq Tabcr PO 04/04/22 20:59 20 meq BID ANGELA Administration Simvastatin 20 mg 03/05/22 21:00 03/05/22 21:48 Simvastatin 20 Mg Tab PO 04/04/22 20:59 20 mg HS ANGELA Administration Tramadol HCl 50 mg 03/05/22 21:00 03/06/22 09:05 Tramadol Hcl 50 Mg Tablet PO 04/04/22 20:59 50 mg BID ANGELA Administration Trazodone HCl 25 mg 03/05/22 21:00 03/05/22 21:47 Trazodone Hcl 50 Mg Tab PO 04/04/22 20:59 25 mg HS ANGELA Administration Umeclidinium/Vilanterol 1 puffs 03/06/22 09:00 03/06/22 08:58 Umeclidinium/Vilanterol 62.5/25mcg 7 Puffs/Inhaler INH 04/05/22 08:59 1 puffs DAILY ANGELA Administration NPO Date Last Intake of Fluids: 03/05/22 Time Last Intake of Fluids: 23:59 Date Last Intake of Solids: 03/05/22 Time Last Intake of Solids: 23:59 Past Medical History Medical History COPD (chronic obstructive pulmonary disease) Coronary artery disease Diabetes High cholesterol Hypertension Exercise / Class Metabolic Activity III < 4 Walking/Shop/Light housework Past Surgical History Surgical History S/P CABG (coronary artery bypass graft) Past Anesthesia History No Hx of Anesthesia Complications and No Family Hx of Anesthesia Complications History of PONV No Hx of PONV and No Hx of Motion Sickness Social History Smoking Status: Former smoker tobacco type: cigarettes Smoking cigarettes per day: 3 packs a day Do You Dip or Chew Tobacco: Yes (1-2 boxes per day) Hx Alcohol Use: No Hx Substance Use: Yes Review of Systems denies fever/cough/ colds/ chest pain/ SOB/ ELIZA denies ELIZA Physical Exam Vital Signs Last Vital Signs Temp 36.7 C 03/06/22 07:19 Pulse 55 L 03/06/22 07:19 Resp 18 03/06/22 07:19 BP 149/66 H 03/06/22 07:19 Pulse Ox 92 03/06/22 07:19 ENMT Mouth: + edentulous; no TMJ abnormality and no dentition abnormality Thyromental Distance: > or= 3.5 Finger Breadths Mallampati Class: II Neck neck extension not limited Respiratory normal respiratory effort; no respiratory distress Auscultation: lungs clear to auscultation bilaterally Cardiovascular Rate/Rhythm: regular rate and regular rhythm Neurologic moves all extremities Psychiatric Orientation: alert and oriented x 3 Testing Laboratory Results 03/06/22 05:16 03/06/22 05:16 PT 11.5 Seconds (9.0-12.0) 03/05/22 11:25 INR 1.1 (0.9-1.1) 03/05/22 11:25 APTT 23.9 Seconds (21.0-31.0) 03/05/22 11:25
[2022-03-06] MEDS ORDERED: ePHEDrine sulfate 50 MG/ML AMP IV PRN (11:14)
[2022-03-06] MEDS ORDERED: fentaNYL citrate 100 MCG/2 ML VIAL IV PRN (11:14)
[2022-03-06] MEDS ORDERED: HYDROmorphone INJ 2 MG/ML SYR/VIAL IV PRN (11:14)
[2022-03-06] MEDS ORDERED: ONDANSETRON INJ 2 MG/ML 2 ML VIAL IV PRN ×2 (11:14→14:21)
[2022-03-06] MEDS ORDERED: ATROPINE SULFATE 0.1 MG/ML 10ML SYR IV PRN (11:14)
[2022-03-06] MEDS ORDERED: BUPIVACAINE 0.5 % 5 MG/1 ML MPF 30ML VIAL ONE (11:22)
[2022-03-06] MEDS ORDERED: LIDOCAINE 1% LOCAL 20 ML VIAL ONE (11:23)
[2022-03-06] MEDS ORDERED: ceFAZolin 330 MG/ML 1 GM VIAL ONE (11:29)
[2022-03-06] MEDS ORDERED: GLYCOPYRROLATE 0.2 MG/ML VIAL ONE (11:50)
[2022-03-06] MEDS ORDERED: ROCURONIUM BROMIDE 10 MG/ML 5 ML VIAL IV ONE (11:55)
[2022-03-06] MEDS ORDERED: ceFAZolin 2000MG 2,000 MG/15 ML SYR IV ONE (12:57)
--- NOTE | 2022-03-06 13:05 | Operative Report ---
Post Operative Report Pre & Post Diagnosis Operation Date: 03/06/22 14:00 Pre-Op Diagnosis: Right hip displaced femoral neck fracture Post-Op Diagnosis: Right hip displaced femoral neck fracture I identified the patient and participated in the time-out.: Yes Procedure Operation Date: 03/06/22 14:00 Actual Procedures Right hip hemiarthroplasty for displaced femoral neck fracture (39779) - Michael Bhakta M.D. Surgeon Michael Bhakta Line Patrolman Freddie Saavedra PA-C Estimated Blood Loss 125 Findings Consistent with Post-Op Diagnosis Specimens None Drains None Anesthesia Type General Complications none Disposition Disposition: Recovery Room Indications Mr. Huerta is an 81-year-old male who injured his right hip during a ground-level fall. History, clinical exam, and imaging were consistent with the above diagnosis. Risks, benefits, and alternatives of surgery were explained in detail. The patient understood all this and wished to proceed. Description of Procedure Components implanted: Biomet Echo Bi-Metric press-fit [id number] mm Standard Femoral Stem 50mm RingLoc Bi-Polar Shell with +3mm Neck Patient was identified in the preoperative holding area. Operative extremity was marked. Patient was then brought back to the operating room, and general anesthesia was induced without complication. Appropriate weight-based dose of Ancef was infused intravenously for antibiotic prophylaxis. Patient was then turned in the lateral decubitus position with the right hip up. Hip positioner was applied to hold the pelvis stable. Axillary roll was placed and all bony prominences were well padded. The right leg was then prepped and draped in a standard sterile fashion using Chlorhexidine prep. I made an incision over the lateral aspect of the hip for a posterolateral approach. I then dissected through subcutaneous tissues down to the iliotibial band. The iliotibial band was divided in line with its fibers at the posterior third of the greater trochanter. Greater trochanteric bursectomy was then performed to expose the posterolateral aspect of the hip. I released the piriformis tendon and short external rotators off of their attachment point at the posterolateral aspect of the greater trochanter. These tendons was tagged with #2 FiberWire sutures in a locking [place] fashion for later repair. I then made a T-capsulotomy of the posterior hip joint capsule. The inferior leaf the capsulotomy was tagged with a #1 Vicryl suture for retraction during hip reduction and later repair. The femoral neck fracture was then easily identified. Comminuted fracture fragments were removed as they were encountered. I then marked the femoral neck about 1 cm proximal to the lesser trochanter and made the proximal femoral cut in line with the angle given by the proximal femoral resection guide. Femoral neck fracture fragments were then removed proximal to the neck cut. The femoral head was then removed and sized. Ligamentum teres was resected from the depth of the acetabulum and the acetabulum was copiously irrigated with sterile saline to insure that there were no remaining bone fragments. I then placed an appropriately-sized trial head into the acetabulum. It seated fully, had free range of motion, and had a good suction seal. I then used the box osteotome to remove a rectangle of bone at the posterolateral femur in line with the femoral canal to ensure that I was completely lateralized into the medial wall of the greater trochanter. Canal finder was then used down the center of the femoral canal. I then used a lateralizing reamer to ensure that I was completely lateralized to avoid varus positioning of the implant. I then sequentially reamed with the canal reamers until I got good cortical chatter. I then sequentially broached until I achieved good cortical fit. The final femoral stem was impacted into place. This showed excellent rotational stability. I then trialed with various neck lengths on the femoral stem while taking the hip through full range of motion. I selected a neck length that gave good stability of the hip through full range of motion, including in flexion, adduction, and internal rotation, as well as good range of motion in flexion and extension, and equal leg lengths. I then removed the trial femoral head and impacted the final femoral head onto the Matos taper of the femoral stem. I then again reduced the hip and took it through full range of motion. Again, there was excellent stability of the hip with full range of motion. I was then satisfied with the procedure. The wound was copiously irrigated with sterile saline via pulsatile irrigation. I then closed the posterior capsulotomy with #2 FiberWire suture. I then made three drill holes in the posterior aspect of the greater trochanter and passed the previously placed FiberWire sutures in the piriformis tendon and short external rotators through these drill holes. The tendons were reapproximated and tied with the hip held in external rotation. I then closed the iliotibial band with a #1 Vicryl suture as a tacking stitch followed by a running #0 V-Lock suture. Deep dermal tissue was then closed with 2-0 V-Lock, and subcutaneous tissue was closed with 3-0 V- Lock. Wound bed was then anesthetized with a 50-50 mixture of 1% lidocaine and 0.5% Marcaine without epinephrine. The incision was then sealed with Dermabond. Sterile dressings were then applied with Silverlon. Drapes were then removed and a hip abduction pillow was placed. The patient was then transferred over to the stretcher and taken to the Post-Anesthesia Care Unit in stable condition. There were no immediate complications from the procedure. I was present and scrubbed for the entire procedure. Due to the complex nature of the procedure, the entire surgery was performed with the operational assistance of Freddie Saavedra PA-C. The assistant analyst, under direct supervision, was involved in the performance of all aspects of the surgical procedure including patient positioning, tissue retraction, hemostasis, wound closure, and dressing application. I attest to the content of the Intraoperative Record and any orders documented therein. Any exceptions are noted below.
[2022-03-06] MEDS ORDERED: SUGAMMADEX SODIUM 200 MG/2 ML VIAL IV ONE (13:13)
--- NOTE | 2022-03-06 13:50 | Anesthesiology Progress Note ---
Date of Service March 06, 2022 Anesthesia Post Procedure Vital Signs Vital Signs: Temp Pulse Pulse Resp BP BP Pulse Ox 03/06/22 13:40 73 13 121/53 L 94 03/06/22 13:30 76 20 104/68 94 03/06/22 13:20 77 20 117/61 93 03/06/22 13:11 36.4 C L 83 16 116/75 97 03/06/22 07:19 36.7 C 55 L 18 149/66 H 92 03/05/22 22:02 36.6 C 74 18 176/69 H 94 03/05/22 19:45 36.8 C 65 80 H 156/77 H 94 03/05/22 19:17 68 18 109/58 L 91 03/05/22 15:00 55 L 20 126/61 99 03/05/22 14:53 98 03/05/22 14:30 59 L 20 145/67 H 88 L 03/05/22 14:00 56 L 18 135/74 94 Pain Intensity Right Hip: Pain Intensity: 4 Transfer of Care Handoff Completed per policy Notes Mental Status: alert / awake / arousable and participated in evaluation Patient Amnestic to Procedure: Yes Nausea / Vomiting: adequately controlled Pain: adequately controlled Airway Patency, RR, SpO2: stable & adequate BP & HR: stable & adequate Hydration State: stable & adequate Anesthetic Complications: no major complications apparent and Pt Satisfied with anesthetic care
--- NOTE | 2022-03-06 13:51 | XRay Report ---
XR hip 1V RT w pelvis CLINICAL HISTORY: IN PACU - A/P PELVIS and LATERAL HIP . Status post hip replacement COMPARISON STUDY: 03/05/2022 TECHNIQUE: AP pelvis and crosstable right hip views FINDINGS: The patient is status post total hip replacement with noncemented components. The prostheti c components are in anatomic alignment with no acute abnormality seen. IMPRESSION: 1. Status post right total hip replacement. ACT 112: Negative or not required by law. Electronically signed by: Guzman Hall M.D. 03/06/2022 1:50 PM
[2022-03-06] MEDS ORDERED: bisacodyL 10 MG SUPP PR PRN (14:21)
[2022-03-06] MEDS ORDERED: MAGNESIUM HYDROXIDE SUSP 30 ML UDC PO PRN (14:21)
[2022-03-06] MEDS ORDERED: NALOXONE HCL 0.4 MG/1 ML VIAL/CARP IV PRN (14:21)
[2022-03-06] MEDS ORDERED: oxyCODONE HCL IR 5 MG TAB (IMMEDIATE RELEASE) PO PRN (14:21)
[2022-03-06] MEDS ORDERED: diphenhydrAMINE Capsule 25 MG CAP PO PRN (14:21)
[2022-03-06] MEDS ORDERED: KETOROLAC TROMETHAMINE 15 MG/ML VIAL IV PRN (14:21)
[2022-03-06] MEDS ORDERED: HYDROmorphone INJ 0.5 MG/0.5 ML SYR IV PRN (14:21)
[2022-03-06] MEDS ORDERED: PHARMACY GLYCEMIC MGMT CONSULT PRN (14:21)
[2022-03-06] MEDS ORDERED: METOCLOPRAMIDE HCL INJ 5 MG/ML 2 ML VIAL IV PRN (14:21)
[2022-03-06] MEDS ORDERED: ALUMINUM/MAGNESIUM SUSP 30 ML UDC PO PRN (14:21)
--- NOTE | 2022-03-06 14:56 | Pharmacy Report ---
Pharmacy Glycemic Short Note 2 - Date of Service March 06, 2022 - Glycemic Short BSG Results (Last 24 hours): 03/05/22 03/06/22 03/06/22 19:58 05:16 11:20 Glucose 227 H POC Glucose 145 H 154 H 03/06/22 13:12 Glucose POC Glucose 143 H OUTPATIENT ANTIDIABETIC REGIMEN: * Lantus 40 units SQ HS * Novolog 22 units at breakfast, 22 units at lunch and 12 units at bedtime plus additional prn sliding scale Above dosing was confirmed with [facility] pharmacy in [place], [place] ASSESSMENT: * 81 y/o M admitted s/p fall and hip fracture yesterday. He had R hip arthroplasty today. NPO this AM. * Patient with history of diabetes managed on basal and bolus insulins at home. * He was on Lantus 5 units SQ BID on admission. Received 5 units last night and this AM. Novolog was also started last night. * Patient received Dexamethasone 4 mg IV x1 in OR today and is also on 4 mg PO daily ongoing which started today AM. * Expect BSG to trend up this evening due to steroid induced hyperglycemia. * Novolog carb ratio tightened with dinner. * Lantus dose increased- scale added for tonight based on BSG. PLAN FOR INPATIENT GLYCEMIC CONTROL: * Basal insulin * Lantus 20-30 units SQ HS based on BSG * Bolus insulin * NovoLog per scale ACHS or Q6hrs while NPO. 00 and 04 checks tonight * Goal Range: Low 120 mg/dL - High 150 mg/dL * Correction Factor: 20 mg/dL/unit * Nutritional / Prandial insulin per carb ratio of 1 unit per 8 grams CHO consumed
[2022-03-06] MEDS: ACETAMINOPHEN 500 MG TAB PO SCH ×2 (15:11→22:13)
--- NOTE | 2022-03-06 17:59 | Hospitalist Progress Note ---
Date of Service March 06, 2022 Assessment & Plan (1) Displaced fracture of right femoral neck: Plan: 81-year-old male who presented 03/05/22 with fall and right hip fracture. He is being managed for the followin. Status post mechanical fall, right hip fracture: The patient is legally blind, ambulates with a walker, poor ambulatory status. Presents with mechanical fall and found to have acute displaced right femoral neck fracture in the ED. Status post Right hip hemiarthroplasty for displaced femoral neck fracture (40764) - Michael Bhakta M.D. Pain management, PT OT, DVT prophylaxis per orthopedics. Incentive spirometer. Continue to monitor. #. Other chronic medical conditions: Chronic diastolic CHF, COPD, diabetes, CAD, history of TIA, HTN, benign prostatic hyperplasia, legally blind/ambulatory dysfunction Continue with/resume home meds as and when appropriate PT/OT when stable. Insulin sliding scale Patient is on Decadron, most likely given for COPD, if needed use stress dose steroid. Continue to monitor. #. DVT prophylaxis: Per orthopedics. Admission and Anticipated Discharge Date Admission Date: March 05, 2022 Subjective Patient seen and examined at bedside for follow-up of right hip fracture status postrepair on 03/06/2022. Patient was sitting up in bed, eating his dinner, on room air, NAD, reports pain under control after the surgery. Patient moving gas, no bowel movement after surgery today. EBL 125 cc. Incentive spirometry. Patient denies headache/dizziness/chest pain/palpitation/other review of symptoms. Patient seems to be eating his dinner very well. Physical Exam Physical Exam: GENERAL: Alert and oriented x3. NAD, on 2 L nasal cannula oxygen. HEENT: No pallor, no icterus. Pupils equal, round and reactive to light. Oral mucosa moist. NECK: No JVD, no neck masses. HEART: S1 and S2 heard. Regular rate and rhythm. Systolic murmur over pulmonic area, no gallop. RESPIRATORY SYSTEM: Normal AP diameter. No accessory muscle use. No wheezing, no crackles. ABDOMEN: Soft, bowel sounds present, nontender, no distention. CENTRAL NERVOUS SYSTEM: No facial droop. Speech is clear. Obeys simple commands. Moves extremities. EXTREMITIES: No edema, no erythema seen. Right hip with clean dressing without soakage noted. Results & Data Results & Data ([facility]) Vital Signs (Past 12 Hours) Vital Signs Temp Pulse Resp BP Pulse Ox 03/06/22 14:59 61 18 152/62 H 100 03/06/22 14:20 36.4 C L 62 16 123/68 03/06/22 14:15 71 18 125/77 94 03/06/22 14:00 73 17 115/80 93 03/06/22 13:50 36.8 C 71 22 136/95 93 03/06/22 13:40 73 13 121/53 L 94 03/06/22 13:30 76 20 104/68 94 03/06/22 13:20 77 20 117/61 93 03/06/22 13:11 36.4 C L 83 16 116/75 97 03/06/22 07:19 36.7 C 55 L 18 149/66 H 92
[2022-03-06] MEDS: ceFAZolin 2000MG 2,000 MG/15 ML SYR IV SCH (22:09)
[2022-03-06] MEDS: DOCUSATE SODIUM 100 MG CAP PO SCH (22:10)
[2022-03-06] MEDS: SIMVASTATIN 20 MG TAB PO SCH (22:11)
[2022-03-06] MEDS: traZODone HCL 50 MG TAB PO SCH (22:12)
[2022-03-06] MEDS: SENNA 8.6 MG TAB PO SCH (22:13)
[2022-03-07] MEDS: INSULIN ASPART PER UNIT SC SCH ×6 (01:51→20:58)
[2022-03-07] MEDS: ceFAZolin 2000MG 2,000 MG/15 ML SYR IV SCH (04:20)
[2022-03-07] MEDS: ACETAMINOPHEN 500 MG TAB PO SCH ×3 (05:43→20:01)
[2022-03-07 06:38] LABS: Hematocrit (blood only) 29.7 % (42-52); Hemoglobin 9.5 g/dL (14.0-18.0); Mean Corpuscular Hemoglobin 30.2 pg (25-34); Mean Corpuscular Volume 94.3 fL (80-100); Mean Platelet Volume 11.9 fL (7.4-10.4); Platelet Count 215 K/uL (130-400); RDW Coefficient of Variation 13.4 % (11.5-14.5); RDW Standard Deviation 46.1 fL (36.4-46.3); Red Blood Count 3.15 M/uL (4.7-6.1)
[2022-03-07 06:49] LABS: Calcium 8.4 mg/dl (8.5-10.1); Creatinine Clr Calc Pharmacy 39.2 ml/min; Est GFR (African American) 58.4 ml/min; Est GFR (Non-African American) 50.3 ml/min; Magnesium 1.8 mg/dl (1.7-2.4); Potassium 4.2 mmol/L (3.5-5.1)
[2022-03-07 06:57] LABS: Eosinophils # (auto) 0.01 K/uL (0-0.5); Immature Granulocytes # (auto) 0.07 K/uL (0.00-0.02); Immature Granulocytes % (auto) 0.3 %; Lymphocytes # (auto) 1.59 K/uL (1.2-3.4); Lymphocytes % (auto) 7.6 %; Monocytes # (auto) 2.39 K/uL (0.11-0.59); Monocytes % (auto) 11.5 %; Neutrophils # (auto) 16.74 K/uL (1.4-6.5); Neutrophils % (auto) 80.6 %
[2022-03-07] MEDS: ALBUTEROL HFA 8 GM INHALER INH SCH (07:06)
[2022-03-07 07:53] LABS: Estimated Average Glucose 131 mg/dl; Hemoglobin A1C 6.2 % (4.5-5.6)
--- NOTE | 2022-03-07 08:17 | Orthopedic Progress Note ---
Date of Service March 07, 2022 Assessment & Plan (1) Displaced fracture of right femoral neck: Plan: Postop day #1 status post right hip hemiarthroplasty PT/OTweight-bear as tolerated right lower extremity DVT prophylaxiscontinue Aggrenox, DANI stockings, SCDs Pain controloral Tylenol, Ultram, oxycodone for more severe pain. Discharge planninguncertain at this time. Will require a rehab stay versus alf facility. Admission and Anticipated Discharge Date Admission Date: March 05, 2022 Subjective Patient is confused. He is alert. Lying comfortably in bed. Answers some questions appropriately. No complaints of pain in the right hip. Physical Exam Constitutional: WD/WN, vitals as above no acute distress Musculoskeletal: Hip: + surgical incision (Silverlon dressing C/D/I. Mild saturation.); no skin erythema, no ecchymosis and no surgical drain present Skin: no rashes, warm and dry Trauma: no evidence of skin trauma Psychiatric: Orientation: alert and cooperative Speech: normal rate/rhythm/volume of speech Results & Data ([facility]) Vital Signs (Past 12 Hours) Vital Signs Temp Pulse Resp BP Pulse Ox 03/07/22 07:12 36.5 C 75 18 125/58 L 97 03/07/22 07:06 70 16 97 03/07/22 03:58 36.8 C 73 18 106/64 98 03/06/22 23:02 36.6 C 71 18 154/71 H 97 Laboratory Results Laboratory Tests 03/07/22 03/07/22 05:37 05:37 Hgb 9.5 L Hct 29.7 L Sodium 139 Potassium 4.2 Chloride 105 BUN 21 Creatinine 1.31 D
[2022-03-07] MEDS: CEROVITE ADV FORMULA TAB PO SCH (09:09)
[2022-03-07] MEDS: POTASSIUM CHLORIDE CRTAB 20 MEQ TABCR PO SCH ×2 (09:09→20:02)
[2022-03-07] MEDS: dexAMETHasone 4 MG TAB PO SCH (09:10)
[2022-03-07] MEDS: METOPROLOL SUCC 50MG EXT REL TAB PO SCH ×2 (09:10→20:02)
[2022-03-07] MEDS: PANTOprazole 40 MG TAB PO SCH (09:10)
[2022-03-07] MEDS: MULTIVITAMIN TAB PO SCH (09:10)
[2022-03-07] MEDS: DIPYRIDAMOLE/ASPIRIN CAP PO SCH (09:10)
[2022-03-07] MEDS: UMECLIDINIUM/VILANTEROL 62.5/25MCG 7 PUFFS/INHALER INH SCH (09:10)
[2022-03-07] MEDS: DOCUSATE SODIUM 100 MG CAP PO SCH ×2 (09:10→20:01)
[2022-03-07] MEDS: FUROSEMIDE 40 MG TAB PO SCH (09:10)
[2022-03-07] MEDS: traMADol HCL 50 MG TABLET PO SCH ×2 (09:22→20:00)
--- NOTE | 2022-03-07 18:15 | Hospitalist Progress Note ---
Date of Service March 07, 2022 Assessment & Plan (1) Displaced fracture of right femoral neck: Plan: 81-year-old male who presented 03/05/22 with fall and right hip fracture. He is being managed for the followin. Status post mechanical fall, right hip fracture: The patient is legally blind, ambulates with a walker, poor ambulatory status. Presents with mechanical fall and found to have acute displaced right femoral neck fracture in the ED. Status post Right hip hemiarthroplasty for displaced femoral neck fracture (83176) - Michael Bhakta M.D. Pain management, PT OT, DVT prophylaxis per orthopedics. Incentive spirometer. Continue to monitor. Likely will need placement. #. Other chronic medical conditions: Chronic diastolic CHF, COPD, diabetes, CAD, history of TIA, HTN, benign prostatic hyperplasia, legally blind/ambulatory dysfunction Continue with/resume home meds as and when appropriate PT/OT when stable. Insulin sliding scale Patient is on Decadron, most likely given for COPD, if needed use stress dose steroid. Continue to monitor. #. DVT prophylaxis: Per orthopedics. Admission and Anticipated Discharge Date Admission Date: March 05, 2022 Subjective Patient seen and examined at bedside for follow-up of right hip fracture status postrepair on 03/06/2022. Patient was sitting up in bed, sitting up in chair, on 2 L nasal cannula oxygen, NAD, reports pain under control with pain meds. Incentive spirometry. Patient denies headache/dizziness/chest pain/palpitation/other review of symptoms. Patient seems to be eating okay. Discontinue IV fluid. Physical Exam Physical Exam: GENERAL: Alert and oriented x3. NAD, on 2 L nasal cannula oxygen. HEENT: No pallor, no icterus. Pupils equal, round and reactive to light. Oral mucosa moist. NECK: No JVD, no neck masses. HEART: S1 and S2 heard. Regular rate and rhythm. Systolic murmur over pulmonic area, no gallop. RESPIRATORY SYSTEM: Normal AP diameter. No accessory muscle use. No wheezing, no crackles. ABDOMEN: Soft, bowel sounds present, nontender, no distention. CENTRAL NERVOUS SYSTEM: No facial droop. Speech is clear. Obeys simple commands. Moves extremities. EXTREMITIES: No edema, no erythema seen. Right hip with clean dressing without soakage noted. Results & Data Results & Data ([facility]) Vital Signs (Past 12 Hours) Vital Signs Temp Pulse Resp BP Pulse Ox 03/07/22 15:33 36.7 C 65 16 122/63 100 03/07/22 07:12 36.5 C 75 18 125/58 L 97 03/07/22 07:06 70 16 97
[2022-03-07] MEDS ORDERED: CHOLECALCIFEROL 1,000 UNITS 25 MCG TAB PO SCH (20:00)
[2022-03-07] MEDS: traZODone HCL 50 MG TAB PO SCH (20:00)
[2022-03-07] MEDS: SENNA 8.6 MG TAB PO SCH (20:01)
[2022-03-07] MEDS: SIMVASTATIN 20 MG TAB PO SCH (20:01)
[2022-03-07] MEDS: INSULIN GLARGINE SOLOSTAR 100 UNITS/ML 3 ML PEN SC SCH (21:01)
[2022-03-08] MEDS: ACETAMINOPHEN 500 MG TAB PO SCH ×3 (05:44→22:17)
[2022-03-08] MEDS: ALBUTEROL HFA 8 GM INHALER INH SCH (07:05)
[2022-03-08 08:32] LABS: Hematocrit (blood only) 24.3 % (42-52); Hemoglobin 7.8 g/dL (14.0-18.0); Mean Corpuscular Hemoglobin 30.5 pg (25-34); Mean Corpuscular Hgb Conc 32.1 g/dL (32-36); Mean Corpuscular Volume 94.9 fL (80-100); Mean Platelet Volume 11.7 fL (7.4-10.4); Platelet Count 140 K/uL (130-400); RDW Coefficient of Variation 13.6 % (11.5-14.5); Red Blood Count 2.56 M/uL (4.7-6.1); White Blood Count 16.86 K/uL (4.8-10.8)
[2022-03-08] MEDS: UMECLIDINIUM/VILANTEROL 62.5/25MCG 7 PUFFS/INHALER INH SCH (08:50)
[2022-03-08] MEDS: DOCUSATE SODIUM 100 MG CAP PO SCH ×2 (08:50→22:15)
[2022-03-08] MEDS: PANTOprazole 40 MG TAB PO SCH (08:50)
[2022-03-08] MEDS: dexAMETHasone 4 MG TAB PO SCH (08:51)
[2022-03-08] MEDS: MULTIVITAMIN TAB PO SCH (08:51)
[2022-03-08] MEDS: CEROVITE ADV FORMULA TAB PO SCH (08:51)
[2022-03-08] MEDS: DIPYRIDAMOLE/ASPIRIN CAP PO SCH (08:51)
[2022-03-08] MEDS: FUROSEMIDE 40 MG TAB PO SCH (08:51)
[2022-03-08] MEDS: METOPROLOL SUCC 50MG EXT REL TAB PO SCH ×2 (08:51→22:16)
[2022-03-08] MEDS: POTASSIUM CHLORIDE CRTAB 20 MEQ TABCR PO SCH ×2 (08:52→22:16)
[2022-03-08 08:57] LABS: BUN Creatinine Ratio 21.9 (10-20); Calcium 8.6 mg/dl (8.5-10.1); Est GFR (African American) 49.1 ml/min; Est GFR (Non-African American) 42.4 ml/min; Potassium 5.3 mmol/L (3.5-5.1)
[2022-03-08] MEDS: traMADol HCL 50 MG TABLET PO SCH ×2 (08:58→22:16)
[2022-03-08] MEDS: INSULIN ASPART PER UNIT SC SCH ×4 (08:58→22:14)
[2022-03-08] MEDS ORDERED: INSULIN GLARGINE SOLOSTAR 100 UNITS/ML 3 ML PEN SC SCH ×2 (09:00→21:00)
--- NOTE | 2022-03-08 10:54 | Orthopedic Progress Note ---
Date of Service March 08, 2022 Assessment & Plan (1) Displaced fracture of right femoral neck: Plan: Postop day #2 status post right hip hemiarthroplasty PT/OTweight-bear as tolerated right lower extremity DVT prophylaxiscontinue Aggrenox, DANI stockings, SCDs Pain controloral Tylenol, Ultram, oxycodone for more severe pain. Acute blood loss anemia-likely secondary to surgical loss and some dilutional effect. Transfuse as per medicine service. Mildly elevated potassium-as per medicine service. Leukocytosis-likely secondary to surgical stress and/or steroids. WBC down to 16 today. Patient currently asymptomatic. Discharge planningpatient resides at home with family. They are hoping that he can return home which they can continue his care there. One of the family members is a [employer] and is requesting care needs from physical therapy etc. prior to patient's return home. Admission and Anticipated Discharge Date Admission Date: March 05, 2022 Subjective Postop day 2 Patient sitting up in bed sleeping upon arrival. Easily awoken. No complaints this morning. States his pain is controlled. States that they are going to try and get him up a little bit later this morning. Denies shortness of breath, chest pain, lightheadedness. Physical Exam Physical Exam: Silverlon dressing is clean, dry, and intact. There is some mild drainage noted in the window. Thigh is soft and nontender. Calves are soft and nontender. Neurovascular is intact. Toes are mobile. Leg lengths appear equal. Results & Data ([facility]) Vital Signs (Past 12 Hours) Vital Signs Temp Pulse Resp BP Pulse Ox 03/08/22 07:34 36.3 C L 59 L 16 119/61 100 03/08/22 07:06 72 18 95 03/07/22 23:22 36.6 C 64 18 137/62 97 Laboratory Results 03/08/22 03/08/22 03/08/22 Range/Units 08:19 07:59 07:59 WBC 16.86 H (4.8-10.8) K/uL RBC 2.56 L (4.7-6.1) M/uL Hgb 7.8 L (14.0-18.0) g/dL Hct 24.3 L (42-52) % MCV 94.9 (80-100) fL MCH 30.5 (25-34) pg MCHC 32.1 (32-36) g/dL RDW Std Deviation 47.0 H (36.4-46.3) fL RDW Coeff of Eliana 13.6 (11.5-14.5) % Plt Count 140 (130-400) K/uL MPV 11.7 H (7.4-10.4) fL Sodium 134 L (136-145) mmol/L Potassium 5.3 H D (3.5-5.1) mmol/L Chloride 102 (98-107) mmol/L Carbon Dioxide 28 (21-32) mmol/L Anion Gap 4 (3-11) BUN 33 H (6-23) mg/dl Creatinine 1.51 H (0.6-1.4) mg/dl Est Cr Clr Drug Dosing 34.0 ml/min Est GFR ( Amer) 49.1 ml/min Est GFR (Non-Af Amer) 42.4 ml/min BUN/Creatinine Ratio 21.9 H (10-20) Glucose 180 H (70-99(Fasting)) mg/dl POC Glucose 168 H (70-99) mg/dl Calcium 8.6 (8.5-10.1) mg/dl Magnesium 2.0 (1.7-2.4) mg/dl 03/07/22 03/07/22 03/07/22 Range/Units 20:30 17:09 12:06 WBC (4.8-10.8) K/uL RBC (4.7-6.1) M/uL Hgb (14.0-18.0) g/dL Hct (42-52) % MCV (80-100) fL MCH (25-34) pg MCHC (32-36) g/dL RDW Std Deviation (36.4-46.3) fL RDW Coeff of Eliana (11.5-14.5) % Plt Count (130-400) K/uL MPV (7.4-10.4) fL Sodium (136-145) mmol/L Potassium (3.5-5.1) mmol/L Chloride (98-107) mmol/L Carbon Dioxide (21-32) mmol/L Anion Gap (3-11) BUN (6-23) mg/dl Creatinine (0.6-1.4) mg/dl Est Cr Clr Drug Dosing ml/min Est GFR ( Amer) ml/min Est GFR (Non-Af Amer) ml/min BUN/Creatinine Ratio (10-20) Glucose (70-99(Fasting)) mg/dl POC Glucose 131 H 113 H 212 H (70-99) mg/dl Calcium (8.5-10.1) mg/dl Magnesium (1.7-2.4) mg/dl
--- NOTE | 2022-03-08 12:17 | Pharmacy Report ---
Pharmacy Glycemic Short Note 2 - Date of Service March 08, 2022 - Glycemic Short BSG Results (Last 24 hours): 03/07/22 03/07/22 03/07/22 12:06 17:09 20:30 Glucose POC Glucose 212 H 113 H 131 H 03/08/22 03/08/22 03/08/22 07:59 08:19 12:03 Glucose 180 H POC Glucose 168 H 220 H OUTPATIENT ANTIDIABETIC REGIMEN: * Lantus 40 units SQ HS * Novolog 22 units at breakfast, 22 units at lunch and 12 units at bedtime plus additional prn sliding scale * Above dosing was confirmed with [facility] pharmacy in [place], [place] * HbA1c: 6.2% (03/06/22) ASSESSMENT: 03/08/22: * BSGs yesterday of 96, 212, 113, and 131 mg/dL * Fasting BSG of 168 mg/dL * Received 50 units of insulin (50/50 basal/bolus split) * Continues on dexamethasone 4 mg PO daily * Will increase Lantus today, giving 10 units in AM with PO dexamethasone * Continue tightened Novolog parameters, likely tighten breakfast parameters tomorrow 03/06/22: * 81 y/o M admitted s/p fall and hip fracture yesterday. He had R hip arthroplasty today. NPO this AM. * Patient with history of diabetes managed on basal and bolus insulins at home. * He was on Lantus 5 units SQ BID on admission. Received 5 units last night and this AM. Novolog was also started last night. * Patient received Dexamethasone 4 mg IV x1 in OR today and is also on 4 mg PO daily ongoing which started today AM. * Expect BSG to trend up this evening due to steroid induced hyperglycemia. * Novolog carb ratio tightened with dinner. * Lantus dose increased- scale added for tonight based on BSG. PLAN FOR INPATIENT GLYCEMIC CONTROL: * Basal insulin * Lantus 10 units SC daily * Lantus 25 units SC HS * Bolus insulin * NovoLog per scale ACHS or Q6hrs while NPO * Goal Range: Low 120 mg/dL - High 150 mg/dL * Correction Factor: 20 mg/dL/unit * Nutritional / Prandial insulin per carb ratio of 1 unit per 7 grams CHO consumed
--- NOTE | 2022-03-08 18:01 | Hospitalist Progress Note ---
Date of Service March 08, 2022 Assessment & Plan (1) Displaced fracture of right femoral neck: Plan: 81-year-old male who presented 03/05/22 with fall and right hip fracture. He is being managed for the followin. Status post mechanical fall, right hip fracture: 1. Ac Blood loss anemia: Likely postoperative, monitor HnH, transfuse if <7 The patient is legally blind, ambulates with a walker, poor ambulatory status. Presents with mechanical fall and found to have acute displaced right femoral neck fracture in the ED. Status post Right hip hemiarthroplasty for displaced femoral neck fracture (80325) - Michael Bhakta M.D. Pain management, PT OT, DVT prophylaxis per orthopedics. Incentive spirometer. Continue to monitor. Likely will need placement. #. Other chronic medical conditions: Chronic diastolic CHF, COPD, diabetes, CAD, history of TIA, HTN, benign prostatic hyperplasia, legally blind/ambulatory dysfunction Continue with/resume home meds as and when appropriate PT/OT when stable. Insulin sliding scale Patient is on Decadron, most likely given for COPD, if needed use stress dose steroid. Continue to monitor. Monitor BMP, slightly uptrending. #. DVT prophylaxis: Per orthopedics. Admission and Anticipated Discharge Date Admission Date: March 05, 2022 Subjective Patient seen and examined at bedside for follow-up of right hip fracture status postrepair on 03/06/2022. Patient was sitting up in bed, sitting up in chair, on RA, NAD, reports pain under control with pain meds. Incentive spirometry. Patient denies headache/dizziness/chest pain/palpitation/other review of symptoms. Patient seems to be eating okay. Physical Exam Physical Exam: GENERAL: Alert and oriented x3. NAD, on RA. HEENT: No pallor, no icterus. Pupils equal, round and reactive to light. Oral mucosa moist. NECK: No JVD, no neck masses. HEART: S1 and S2 heard. Regular rate and rhythm. Systolic murmur over pulmonic area, no gallop. RESPIRATORY SYSTEM: Normal AP diameter. No accessory muscle use. No wheezing, no crackles. ABDOMEN: Soft, bowel sounds present, nontender, no distention. CENTRAL NERVOUS SYSTEM: No facial droop. Speech is clear. Obeys simple commands. Moves extremities. EXTREMITIES: No edema, no erythema seen. Right hip with clean dressing without soakage noted. Results & Data Results & Data ([facility]) Vital Signs (Past 12 Hours) Vital Signs Temp Pulse Resp BP Pulse Ox 03/08/22 15:02 36.8 C 76 20 127/57 L 100 03/08/22 14:49 36.7 C 56 L 16 105/59 L 97 03/08/22 07:34 36.3 C L 59 L 16 119/61 100 03/08/22 07:06 72 18 95
[2022-03-08] MEDS: SENNA 8.6 MG TAB PO SCH (22:16)
[2022-03-08] MEDS: SIMVASTATIN 20 MG TAB PO SCH (22:16)
[2022-03-08] MEDS: traZODone HCL 50 MG TAB PO SCH (22:17)
[2022-03-09] MEDS: ACETAMINOPHEN 500 MG TAB PO SCH ×3 (06:01→21:27)
[2022-03-09] MEDS: ALBUTEROL HFA 8 GM INHALER INH SCH (07:35)
--- NOTE | 2022-03-09 08:05 | Orthopedic Progress Note ---
Date of Service March 09, 2022 Assessment & Plan (1) Displaced fracture of right femoral neck: Plan: Postop day #3 status post right hip hemiarthroplasty PT/OTweight-bear as tolerated right lower extremity DVT prophylaxiscontinue Aggrenox, DANI stockings, SCDs Pain controloral Tylenol, Ultram, oxycodone for more severe pain. Acute blood loss anemia-likely secondary to surgical loss and some dilutional effect. Transfuse as per medicine service. (LABS PENDING FOR THIS AM) Mildly elevated potassium-as per medicine service. Leukocytosis-likely secondary to surgical stress and/or steroids. WBC down to 16 today. Patient currently asymptomatic. Ortho will sign off at this time. Instructions placed in DC section. Please call with any questions. Discharge planningpatient resides at home with family. They are hoping that he can return home which they can continue his care there. PT noted slow progression. Doubt he will be able to go home but will see how PT progresses. PT currently recommending SNF. Admission and Anticipated Discharge Date Admission Date: March 05, 2022 Subjective POD 3 Pt sleeping upon entering room but easily awoken. No complaints. States his pain is controlled currently. Denies CP,SOB,LH. Physical Exam Physical Exam: Silverlon initact. Drainage note in dressing window. No drainage leaking from dressing. Thigh soft, NT. Calves soft, NT. NV intact. Toes mobile. Leg lengths appear equal. Results & Data ([facility]) Vital Signs (Past 12 Hours) Vital Signs Temp Pulse Resp BP BP Pulse Ox 03/09/22 07:35 66 16 95 03/09/22 07:15 36.8 C 65 16 140/44 L 97 03/08/22 22:15 36.6 C 78 14 132/58 L 93
[2022-03-09] MEDS: UMECLIDINIUM/VILANTEROL 62.5/25MCG 7 PUFFS/INHALER INH SCH (08:45)
[2022-03-09] MEDS: MULTIVITAMIN TAB PO SCH (08:46)
[2022-03-09] MEDS: DIPYRIDAMOLE/ASPIRIN CAP PO SCH (08:46)
[2022-03-09] MEDS: FUROSEMIDE 40 MG TAB PO SCH (08:46)
[2022-03-09] MEDS: CEROVITE ADV FORMULA TAB PO SCH (08:46)
[2022-03-09] MEDS: PANTOprazole 40 MG TAB PO SCH (08:46)
[2022-03-09] MEDS: POTASSIUM CHLORIDE CRTAB 20 MEQ TABCR PO SCH ×2 (08:46→21:26)
[2022-03-09] MEDS: METOPROLOL SUCC 50MG EXT REL TAB PO SCH ×2 (08:47→21:26)
[2022-03-09] MEDS: DOCUSATE SODIUM 100 MG CAP PO SCH ×2 (08:47→21:27)
[2022-03-09] MEDS: INSULIN GLARGINE SOLOSTAR 100 UNITS/ML 3 ML PEN SC SCH ×2 (08:48→21:28)
[2022-03-09] MEDS: INSULIN ASPART PER UNIT SC SCH ×4 (08:51→21:31)
[2022-03-09 09:14] LABS: Hematocrit (blood only) 23.2 % (42-52); Hemoglobin 7.7 g/dL (14.0-18.0); Mean Corpuscular Hemoglobin 31.3 pg (25-34); Mean Corpuscular Hgb Conc 33.2 g/dL (32-36); Mean Corpuscular Volume 94.3 fL (80-100); Mean Platelet Volume 11.4 fL (7.4-10.4); Platelet Count 192 K/uL (130-400); RDW Coefficient of Variation 13.3 % (11.5-14.5); Red Blood Count 2.46 M/uL (4.7-6.1); White Blood Count 17.97 K/uL (4.8-10.8)
[2022-03-09] MEDS: traMADol HCL 50 MG TABLET PO SCH ×2 (10:22→21:31)
[2022-03-09 11:45] LABS: BUN Creatinine Ratio 34.5 (10-20); Calcium 8.7 mg/dl (8.5-10.1); Creatinine Clr Calc Pharmacy 44.3 ml/min; Est GFR (African American) 67.6 ml/min; Est GFR (Non-African American) 58.3 ml/min; Magnesium 1.9 mg/dl (1.7-2.4); Phosphorus 2.9 mg/dl (2.5-4.9); Potassium 4.4 mmol/L (3.5-5.1)
[2022-03-09] MEDS: dexAMETHasone 1 MG TAB PO SCH (12:30)
--- NOTE | 2022-03-09 13:24 | Pharmacy Report ---
Pharmacy Glycemic Short Note 2 - Date of Service March 09, 2022 - Glycemic Short BSG Results (Last 24 hours): 03/08/22 03/08/22 03/09/22 17:06 20:36 08:09 Glucose POC Glucose 235 H 165 H 199 H 03/09/22 03/09/22 08:54 12:11 Glucose 220 H POC Glucose 223 H OUTPATIENT ANTIDIABETIC REGIMEN: * Lantus 40 units SQ HS * Novolog 22 units at breakfast, 22 units at lunch and 12 units at bedtime plus additional prn sliding scale * Above dosing was confirmed with [facility] pharmacy in [place], [place] * HbA1c: 6.2% (03/06/22) ASSESSMENT: 03/09/22: * BSGs elevated yesterday, 168, 220, 235, and 165 mg/dL, fasting BSG also elevated at 199 mg/dL * Received 64 units of insulin (35 units of Lantus and 29 units of prandial/correctional Novolog) * Tightened Novolog parameters today and will increase Lantus today * Dexamethasone reduced to 2 mg PO daily today 03/08/22: * BSGs yesterday of 96, 212, 113, and 131 mg/dL * Fasting BSG of 168 mg/dL * Received 50 units of insulin (50/50 basal/bolus split) * Continues on dexamethasone 4 mg PO daily * Will increase Lantus today, giving 10 units in AM with PO dexamethasone * Continue tightened Novolog parameters, likely tighten breakfast parameters tomorrow 03/06/22: * 81 y/o M admitted s/p fall and hip fracture yesterday. He had R hip arthroplasty today. NPO this AM. * Patient with history of diabetes managed on basal and bolus insulins at home. * He was on Lantus 5 units SQ BID on admission. Received 5 units last night and this AM. Novolog was also started last night. * Patient received Dexamethasone 4 mg IV x1 in OR today and is also on 4 mg PO daily ongoing which started today AM. * Expect BSG to trend up this evening due to steroid induced hyperglycemia. * Novolog carb ratio tightened with dinner. * Lantus dose increased- scale added for tonight based on BSG. PLAN FOR INPATIENT GLYCEMIC CONTROL: * Basal insulin * Lantus 20 units SC AM * Lantus 20-25 units SC HS (see EHR for details) * Bolus insulin * NovoLog per scale ACHS or Q6hrs while NPO * Goal Range: Low 110 mg/dL - High 140 mg/dL * Correction Factor: 20 mg/dL/unit * Nutritional / Prandial insulin per carb ratio of 1 unit per 6 grams CHO consumed
--- NOTE | 2022-03-09 17:26 | Hospitalist Progress Note ---
Date of Service March 09, 2022 Assessment & Plan (1) Displaced fracture of right femoral neck: Plan: 81-year-old male who presented 03/05/22 with fall and right hip fracture. He is being managed for the following: Status post mechanical fall, right hip fracture: Acute Blood loss anemia: Likely postoperative, monitor HnH, transfuse if <7 The patient is legally blind, ambulates with a walker, poor ambulatory status. Presents with mechanical fall and found to have acute displaced right femoral neck fracture in the ED. Status post Right hip hemiarthroplasty for displaced femoral neck fracture (23846) - Michael Bhakta M.D. Pain management, PT OT, DVT prophylaxis per orthopedics. Incentive spirometer. Continue to monitor. Likely will need placement. Remains stable medically without any significant symptoms Awaiting placement Other chronic medical conditions: Chronic diastolic CHF, COPD, diabetes, CAD, history of TIA, HTN, benign prostatic hyperplasia, legally blind/ambulatory dysfunction Continue with/resume home meds as and when appropriate PT/OT when stable. Insulin sliding scale Patient is on Decadron, most likely given for COPD, if needed use stress dose steroid. Continue to monitor. Monitor BMP, slightly uptrending. DVT prophylaxis: Per orthopedics. Started on Aggrenox Admission and Anticipated Discharge Date Admission Date: March 05, 2022 Subjective 03/09/2022 Patient was seen and examined in medical floor He remains stable and denies any significant symptoms Getting some pain in the right hip with activities Review of Systems Review of Systems: All systems reviewed and are unremarkable except as noted below Physical Exam Physical Exam: Lying in bed comfortably Constitutional: well developed, well nourished and + ill appearing Eyes: PERRL, conjunctivae normal, anicteric sclerae ENMT: external ear and nose normal, oropharynx normal Neck: trachea midline, no thyromegaly Respiratory: no respiratory distress Auscultation: lungs clear to auscultation bilaterally Cardiovascular: Rate/Rhythm: regular rate and regular rhythm; not tachycardic Heart Sounds: normal S1 and normal S2; no murmur Extremities: no edema Gastrointestinal (Abdomen): Inspection/Auscultation: + abdomen distended and normal bowel sounds Percussion/Palpation: abdomen soft; abdomen nontender Musculoskeletal: No acute arthritis in any joint Neurologic: Alert, awake and oriented x3 Results & Data Results & Data ([facility]) Vital Signs (Past 12 Hours) Vital Signs Temp Pulse Resp BP Pulse Ox 03/09/22 15:40 36.9 C 68 16 133/60 96 03/09/22 07:35 66 16 95 03/09/22 07:15 36.8 C 65 16 140/44 L 97 Laboratory Results Short CBC 03/09/22 Range/Units 08:54 WBC 17.97 H (4.8-10.8) K/uL Hgb 7.7 L (14.0-18.0) g/dL Hct 23.2 L (42-52) % Plt Count 192 (130-400) K/uL BMP 03/09/22 08:54 Sodium 133 L Potassium 4.4 Chloride 100 Carbon Dioxide 24 BUN 40 H Creatinine 1.16 D Glucose 220 H Calcium 8.7 Medications Administered Current Inpatient Medications Acetaminophen (Acetaminophen 500 Mg Tab) 1,000 mg PO Q8 ANGELA Stop: 04/05/22 14:29 Last Admin: 03/09/22 14:02 Dose: 1,000 mg Documented by: Al Hydrox/Mg Hydrox/Simethicone (Aluminum/Magnesium Susp 30 Ml Udc) 15 ml PO Q4H PRN PRN Reason: Heartburn Stop: 04/05/22 14:20 Albuterol (Albuterol Hfa 8 Gm Inhaler) 1 puffs INH DAILY ANGELA; Protocol Stop: 04/05/22 08:59 Last Admin: 03/09/22 07:35 Dose: 1 puffs Documented by: Bisacodyl (Bisacodyl 10 Mg Supp) 10 mg TN DAILY PRN PRN Reason: Constipation Stop: 04/05/22 14:20 Dexamethasone (Dexamethasone 1 Mg Tab) 2 mg PO DAILY ANGELA Stop: 04/08/22 08:59 Last Admin: 03/09/22 12:30 Dose: 2 mg Documented by: Dextrose (Dextrose 50% 50 Ml Syringe) 25 - 50 ml IV UD PRN; Protocol PRN Reason: Hypoglycemia Protocol Stop: 04/04/22 20:59 Diphenhydramine HCl (Diphenhydramine Capsule 25 Mg Cap) 25 mg PO Q8H PRN PRN Reason: Itching Stop: 04/05/22 14:20 Dipyridamole/Aspirin (Dipyridamole/Aspirin Cap) 1 cap PO DAILY ANGELA Stop: 04/05/22 08:59 Last Admin: 03/09/22 08:46 Dose: 1 cap Documented by: Docusate Sodium (Docusate Sodium 100 Mg Cap) 100 mg PO BID [facility] Stop: 04/05/22 20:59 Last Admin: 03/09/22 08:47 Dose: 100 mg Documented by: Furosemide (Furosemide 40 Mg Tab) 40 mg PO QAM [facility] Stop: 04/05/22 08:59 Last Admin: 03/09/22 08:46 Dose: 40 mg Documented by: Glucagon (Glucagon For Inj 1 Mg Vial) 1 mg IM UD PRN; Protocol PRN Reason: Hypoglycemia Protocol Stop: 04/04/22 20:59 Glucose (Glucose 40% Gel 15 Gm Tube) 15 - 30 gm PO UD PRN; Protocol PRN Reason: Hypoglycemia Protocol Stop: 04/04/22 20:59 Glucose (Glucose 10 Tabs/Tube) 4 - 8 tabs PO UD PRN; Protocol PRN Reason: Hypoglycemia Protocol Stop: 04/04/22 20:59 Hydromorphone HCl (Hydromorphone Inj 0.5 Mg/0.5 Ml Syr) 0.5 mg IV Q2H PRN PRN Reason: Pain or Pre PT Stop: 03/20/22 14:20 Insulin Aspart (Insulin Aspart Per Unit) 0 units SC [facility] Stop: 04/05/22 16:29 Last Admin: 03/09/22 17:24 Dose: 4 units Documented by: Insulin Glargine (Insulin Glargine Solostar 100 Units/Ml 3 Ml Pen) 20 units SC [facility] Stop: 04/07/22 08:59 Last Admin: 03/09/22 08:48 Dose: 20 units Documented by: Insulin Glargine (Insulin Glargine Solostar 100 Units/Ml 3 Ml Pen) 0 units SC [facility]; Protocol Stop: 04/08/22 20:59 Ketorolac Tromethamine (Ketorolac Tromethamine 15 Mg/Ml Vial) 15 mg IV Q6H PRN PRN Reason: Breakthrough Pain Magnesium Hydroxide (Magnesium Hydroxide Susp 30 Ml Udc) 30 ml PO Q6H PRN PRN Reason: Constipation Stop: 04/05/22 14:20 Metoclopramide HCl (Metoclopramide Hcl Inj 5 Mg/Ml 2 Ml Vial) 10 mg IV Q6H PRN PRN Reason: Nausea And Vomiting Stop: 04/05/22 14:20 Metoprolol Succinate (Metoprolol Succ 50mg Ext Rel Tab) 50 mg PO BID [facility] Stop: 04/04/22 20:59 Last Admin: 03/09/22 08:47 Dose: 50 mg Documented by: Miscellaneous (Carbohydrates For Hypoglycemia ) 15 - 30 gm PO UD PRN PRN Reason: Hypoglycemia Treatment Stop: 04/04/22 20:59 Miscellaneous Information (Pharmacy Glycemic Mgmt Consult) 1 ea N/A UD PRN PRN Reason: Consult Stop: 04/05/22 14:20 Multivitamins (Multivitamin Tab) 1 tab PO QAM [facility] Stop: 04/06/22 08:59 Last Admin: 03/09/22 08:46 Dose: 1 tab Documented by: Multivitamins/Minerals (Cerovite Adv Formula Tab) 1 tab PO QAM [facility] Stop: 04/05/22 08:59 Last Admin: 03/09/22 08:46 Dose: 1 tab Documented by: Naloxone HCl (Naloxone Hcl 0.4 Mg/1 Ml Vial/Carp) 0.1 mg IV Q5M PRN PRN Reason: Oversedation/Resp Depression Stop: 04/05/22 14:20 Nitroglycerin (Nitroglycerin Sl 0.4 Mg/Tab Tab) 0.4 mg SL DAILY PRN PRN Reason: Chest Pain Stop: 04/04/22 20:01 Ondansetron HCl (Ondansetron Inj 2 Mg/Ml 2 Ml Vial) 4 mg IV Q6H PRN PRN Reason: Nausea And Vomiting Stop: 04/05/22 14:20 Oxycodone HCl (Oxycodone Hcl Ir 5 Mg Tab (Immediate Release)) 5 - 10 mg PO Q4H PRN PRN Reason: Pain or Pre PT Stop: 03/20/22 14:20 Pantoprazole Sodium (Pantoprazole 40 Mg Tab) 40 mg PO QAM [facility] Stop: 04/05/22 08:59 Last Admin: 03/09/22 08:46 Dose: 40 mg Documented by: Polyethylene Glycol (Polyethylene (Miralax) 17 Gm Pack) 17 gm PO DAILY PRN PRN Reason: Constipation Stop: 04/04/22 20:01 Potassium Chloride (Potassium Chloride Crtab 20 Meq Tabcr) 20 meq PO BID [facility] Stop: 04/04/22 20:59 Last Admin: 03/09/22 08:46 Dose: 20 meq Documented by: Sennosides (Senna 8.6 Mg Tab) 17.2 mg PO HS ANGELA Stop: 04/05/22 20:59 Last Admin: 03/08/22 22:16 Dose: 17.2 mg Documented by: Simvastatin (Simvastatin 20 Mg Tab) 20 mg PO HS ANGELA Stop: 04/04/22 20:59 Last Admin: 03/08/22 22:16 Dose: 20 mg Documented by: Tramadol HCl (Tramadol Hcl 50 Mg Tablet) 50 mg PO BID ANGELA Stop: 04/04/22 20:59 Last Admin: 03/09/22 10:22 Dose: 50 mg Documented by: Trazodone HCl (Trazodone Hcl 50 Mg Tab) 25 mg PO HS ANGELA Stop: 04/04/22 20:59 Last Admin: 03/08/22 22:17 Dose: 25 mg Documented by: Umeclidinium/Vilanterol (Umeclidinium/Vilanterol 62.5/25mcg 7 Puffs/Inhaler) 1 puffs INH DAILY ANGELA Stop: 04/05/22 08:59 Last Admin: 03/09/22 08:45 Dose: 1 puffs Documented by: Vitamin D (Cholecalciferol 1,000 Units 25 Mcg Tab) 1,000 units PO Mo ANGELA Stop: 04/06/22 19:59 Last Admin: 03/07/22 20:02 Dose: 1,000 units Documented by:
[2022-03-09] MEDS: SIMVASTATIN 20 MG TAB PO SCH (21:26)
[2022-03-09] MEDS: SENNA 8.6 MG TAB PO SCH (21:27)
[2022-03-09] MEDS: traZODone HCL 50 MG TAB PO SCH (21:27)
[2022-03-10] MEDS: ACETAMINOPHEN 500 MG TAB PO SCH ×3 (06:25→20:47)
[2022-03-10] MEDS: ALBUTEROL HFA 8 GM INHALER INH SCH (07:37)
[2022-03-10] MEDS: dexAMETHasone 1 MG TAB PO SCH (07:59)
[2022-03-10] MEDS: FUROSEMIDE 40 MG TAB PO SCH (07:59)
[2022-03-10] MEDS: POTASSIUM CHLORIDE CRTAB 20 MEQ TABCR PO SCH ×2 (07:59→20:45)
[2022-03-10] MEDS: DIPYRIDAMOLE/ASPIRIN CAP PO SCH (07:59)
[2022-03-10] MEDS: MULTIVITAMIN TAB PO SCH (07:59)
[2022-03-10] MEDS: METOPROLOL SUCC 50MG EXT REL TAB PO SCH ×2 (07:59→20:44)
[2022-03-10] MEDS: PANTOprazole 40 MG TAB PO SCH (07:59)
[2022-03-10] MEDS: DOCUSATE SODIUM 100 MG CAP PO SCH ×2 (07:59→20:43)
[2022-03-10] MEDS: CEROVITE ADV FORMULA TAB PO SCH (07:59)
[2022-03-10] MEDS: UMECLIDINIUM/VILANTEROL 62.5/25MCG 7 PUFFS/INHALER INH SCH (08:00)
[2022-03-10] MEDS: traMADol HCL 50 MG TABLET PO SCH ×2 (08:01→20:51)
[2022-03-10 08:18] LABS: Hematocrit (blood only) 24.7 % (42-52); Hemoglobin 7.9 g/dL (14.0-18.0); Mean Corpuscular Hemoglobin 29.8 pg (25-34); Mean Corpuscular Volume 93.2 fL (80-100); Mean Platelet Volume 11.1 fL (7.4-10.4); Platelet Count 233 K/uL (130-400); RDW Coefficient of Variation 13.8 % (11.5-14.5); RDW Standard Deviation 47.2 fL (36.4-46.3); Red Blood Count 2.65 M/uL (4.7-6.1); White Blood Count 14.25 K/uL (4.8-10.8)
[2022-03-10] MEDS: INSULIN GLARGINE SOLOSTAR 100 UNITS/ML 3 ML PEN SC SCH ×2 (08:31→21:07)
[2022-03-10] MEDS: INSULIN ASPART PER UNIT SC SCH ×4 (08:35→20:43)
[2022-03-10 08:41] LABS: BUN Creatinine Ratio 36.7 (10-20); Calcium 8.8 mg/dl (8.5-10.1); Creatinine Clr Calc Pharmacy 52.4 ml/min; Est GFR (African American) 82.9 ml/min; Est GFR (Non-African American) 71.5 ml/min; Potassium 4.2 mmol/L (3.5-5.1)
--- NOTE | 2022-03-10 09:09 | Pharmacy Report ---
Pharmacy Glycemic Short Note 2 - Date of Service March 10, 2022 - Glycemic Short BSG Results (Last 24 hours): 03/09/22 03/09/22 03/09/22 08:54 12:11 17:04 Glucose 220 H POC Glucose 223 H 124 H 03/09/22 03/10/22 03/10/22 20:57 07:51 08:22 Glucose 97 POC Glucose 168 H 112 H OUTPATIENT ANTIDIABETIC REGIMEN: * Lantus 40 units SQ HS * Novolog 22 units at breakfast, 22 units at lunch and 12 units at bedtime plus additional prn sliding scale * Above dosing was confirmed with [facility] pharmacy in [place], [place] * HbA1c: 6.2% (03/06/22) ASSESSMENT: 03/10/22: * Glycemic control improved yesterday following increase in Lantus and tightening of carb coverage: * Total 71 units SQ: Lantus 20 + 25, Novolog 26 units * BSGs 199, 223, 124, 168 mg/dL * Fasting BSG of 112 mg/dL this morning. Will back off Lantus dose based on significant decrease from 199 ->112 mg/dL. Also, will start transition back to HS dosing on 03/11. * No change to novolog today per post prandial values have improved. Lunch co ntinues to be the highest BSG of the day. 03/09/22: * BSGs elevated yesterday, 168, 220, 235, and 165 mg/dL, fasting BSG also elevated at 199 mg/dL * Received 64 units of insulin (35 units of Lantus and 29 units of prandial/correctional Novolog) * Tightened Novolog parameters today and will increase Lantus today * Dexamethasone reduced to 2 mg PO daily today 03/08/22: * BSGs yesterday of 96, 212, 113, and 131 mg/dL * Fasting BSG of 168 mg/dL * Received 50 units of insulin (50/50 basal/bolus split) * Continues on dexamethasone 4 mg PO daily * Will increase Lantus today, giving 10 units in AM with PO dexamethasone * Continue tightened Novolog parameters, likely tighten breakfast parameters tomorrow 03/06/22: * 81 y/o M admitted s/p fall and hip fracture yesterday. He had R hip arthroplasty today. NPO this AM. * Patient with history of diabetes managed on basal and bolus insulins at home. * He was on Lantus 5 units SQ BID on admission. Received 5 units last night and this AM. Novolog was also started last night. * Patient received Dexamethasone 4 mg IV x1 in OR today and is also on 4 mg PO daily ongoing which started today AM. * Expect BSG to trend up this evening due to steroid induced hyperglycemia. * Novolog carb ratio tightened with dinner. * Lantus dose increased- scale added for tonight based on BSG. PLAN FOR INPATIENT GLYCEMIC CONTROL: * Basal insulin - decrease * Lantus 20 units SC AM * Lantus 17-20 units SC HS (see EHR for details) * Bolus insulin * NovoLog per scale ACHS or Q6hrs while NPO * Goal Range: Low 110 mg/dL - High 140 mg/dL * Correction Factor: 20 mg/dL/unit * Nutritional / Prandial insulin per carb ratio of 1 unit per 6 grams CHO consumed
[2022-03-10 09:13] LABS: Eosinophils # (auto) 0.09 K/uL (0-0.5); Eosinophils % (auto) 0.6 %; Immature Granulocytes # (auto) 0.05 K/uL (0.00-0.02); Immature Granulocytes % (auto) 0.4 %; Lymphocytes # (auto) 2.48 K/uL (1.2-3.4); Lymphocytes % (auto) 17.4 %; Monocytes # (auto) 1.78 K/uL (0.11-0.59); Monocytes % (auto) 12.5 %; Neutrophils # (auto) 9.85 K/uL (1.4-6.5); Neutrophils % (auto) 69.1 %
--- NOTE | 2022-03-10 17:03 | Hospitalist Progress Note ---
Date of Service March 10, 2022 Assessment & Plan (1) Displaced fracture of right femoral neck: Plan: 81-year-old male who presented 03/05/22 with fall and right hip fracture. He is being managed for the following: Status post mechanical fall, right hip fracture: Acute Blood loss anemia: Likely postoperative, monitor HnH, transfuse if <7 The patient is legally blind, ambulates with a walker, poor ambulatory status. Presents with mechanical fall and found to have acute displaced right femoral neck fracture in the ED. Status post Right hip hemiarthroplasty for displaced femoral neck fracture (53939) - Michael Bhakta M.D. Pain management, PT OT, DVT prophylaxis per orthopedics. Incentive spirometer. Continue to monitor. Likely will need placement. Remains stable medically without any significant symptoms Awaiting placement No acute symptoms Other chronic medical conditions: Chronic diastolic CHF, COPD, diabetes, CAD, history of TIA, HTN, benign prostatic hyperplasia, legally blind/ambulatory dysfunction Continue with/resume home meds as and when appropriate PT/OT when stable. Insulin sliding scale Patient is on Decadron, most likely given for COPD, if needed use stress dose steroid. Continue to monitor. Decadron dose has been decreased to 2 mg and will taper it off in the next 10 days DVT prophylaxis: Per orthopedics. Started on Aggrenox Admission and Anticipated Discharge Date Admission Date: March 05, 2022 Subjective 03/09/2022 Patient was seen and examined in medical floor He remains stable and denies any significant symptoms Getting some pain in the right hip with activities 03/10/2022 The patient was seen and examined in medical floor He remains stable and denies any significant symptoms Has minimal pain in the right hip with movement Review of Systems Review of Systems: All systems reviewed and are unremarkable except as noted below Physical Exam Physical Exam: Lying in bed comfortably Constitutional: well developed, well nourished and + ill appearing Eyes: PERRL, conjunctivae normal, anicteric sclerae ENMT: external ear and nose normal, oropharynx normal Neck: trachea midline, no thyromegaly Respiratory: no respiratory distress Auscultation: lungs clear to auscultation bilaterally Cardiovascular: Rate/Rhythm: regular rate and regular rhythm; not tachycardic Heart Sounds: normal S1 and normal S2; no murmur Extremities: no edema Gastrointestinal (Abdomen): Inspection/Auscultation: + abdomen distended and normal bowel sounds Percussion/Palpation: abdomen soft; abdomen nontender Musculoskeletal: Minimal pain in the right hip with movement of the right lower extremity Neurologic: moves all extremities; no focal motor deficits and not confused Lymphatic: no cervical or axillary lymphadenopathy Results & Data Results & Data ([facility]) Vital Signs (Past 12 Hours) Vital Signs Temp Pulse Resp BP Pulse Ox 03/10/22 15:27 36.6 C 73 18 127/66 100 03/10/22 07:37 66 18 96 03/10/22 07:00 36.7 C 65 18 138/66 100 Laboratory Results Short CBC 03/10/22 Range/Units 07:51 WBC 14.25 H (4.8-10.8) K/uL Hgb 7.9 L (14.0-18.0) g/dL Hct 24.7 L (42-52) % Plt Count 233 (130-400) K/uL BMP 03/10/22 07:51 Sodium 138 Potassium 4.2 Chloride 103 Carbon Dioxide 29 BUN 36 H Creatinine 0.98 Glucose 97 Calcium 8.8 Medications Administered Current Inpatient Medications Acetaminophen (Acetaminophen 500 Mg Tab) 1,000 mg PO Q8 [facility]GELA Stop: 04/05/22 14:29 Last Admin: 03/10/22 15:06 Dose: 1,000 mg Documented by: Al Hydrox/Mg Hydrox/Simethicone (Aluminum/Magnesium Susp 30 Ml Udc) 15 ml PO Q4H PRN PRN Reason: Heartburn Stop: 04/05/22 14:20 Albuterol (Albuterol Hfa 8 Gm Inhaler) 1 puffs INH DAILY ANGELA; Protocol Stop: 04/05/22 08:59 Last Admin: 03/10/22 07:37 Dose: 1 puffs Documented by: Bisacodyl (Bisacodyl 10 Mg Supp) 10 mg MI DAILY PRN PRN Reason: Constipation Stop: 04/05/22 14:20 Dexamethasone (Dexamethasone 1 Mg Tab) 2 mg PO DAILY ANGELA Stop: 04/08/22 08:59 Last Admin: 03/10/22 07:59 Dose: 2 mg Documented by: Dextrose (Dextrose 50% 50 Ml Syringe) 25 - 50 ml IV UD PRN; Protocol PRN Reason: Hypoglycemia Protocol Stop: 04/04/22 20:59 Diphenhydramine HCl (Diphenhydramine Capsule 25 Mg Cap) 25 mg PO Q8H PRN PRN Reason: Itching Stop: 04/05/22 14:20 Dipyridamole/Aspirin (Dipyridamole/Aspirin Cap) 1 cap PO DAILY [facility] Stop: 04/05/22 08:59 Last Admin: 03/10/22 07:59 Dose: 1 cap Documented by: Docusate Sodium (Docusate Sodium 100 Mg Cap) 100 mg PO BID [facility] Stop: 04/05/22 20:59 Last Admin: 03/10/22 07:59 Dose: 100 mg Documented by: Furosemide (Furosemide 40 Mg Tab) 40 mg PO QAM [facility] Stop: 04/05/22 08:59 Last Admin: 03/10/22 07:59 Dose: 40 mg Documented by: Glucagon (Glucagon For Inj 1 Mg Vial) 1 mg IM UD PRN; Protocol PRN Reason: Hypoglycemia Protocol Stop: 04/04/22 20:59 Glucose (Glucose 40% Gel 15 Gm Tube) 15 - 30 gm PO UD PRN; Protocol PRN Reason: Hypoglycemia Protocol Stop: 04/04/22 20:59 Glucose (Glucose 10 Tabs/Tube) 4 - 8 tabs PO UD PRN; Protocol PRN Reason: Hypoglycemia Protocol Stop: 04/04/22 20:59 Hydromorphone HCl (Hydromorphone Inj 0.5 Mg/0.5 Ml Syr) 0.5 mg IV Q2H PRN PRN Reason: Pain or Pre PT Stop: 03/20/22 14:20 Insulin Aspart (Insulin Aspart Per Unit) 0 units SC 0730 [facility] Stop: 04/10/22 07:29 Insulin Aspart (Insulin Aspart Per Unit) 0 units SC 1130,1630,2100 [facility] Stop: 04/09/22 16:29 Insulin Glargine (Insulin Glargine Solostar 100 Units/Ml 3 Ml Pen) [facility] Stop: 04/07/22 08:59 Last Admin: 03/10/22 08:31 Dose: 20 units Documented by: Insulin Glargine (Insulin Glargine Solostar 100 Units/Ml 3 Ml Pen) 0 units SC [facility]; Protocol Stop: 04/08/22 20:59 Last Admin: 03/09/22 21:28 Dose: 25 units Documented by: Ketorolac Tromethamine (Ketorolac Tromethamine 15 Mg/Ml Vial) 15 mg IV Q6H PRN PRN Reason: Breakthrough Pain Magnesium Hydroxide (Magnesium Hydroxide Susp 30 Ml Udc) 30 ml PO Q6H PRN PRN Reason: Constipation Stop: 04/05/22 14:20 Metoclopramide HCl (Metoclopramide Hcl Inj 5 Mg/Ml 2 Ml Vial) 10 mg IV Q6H PRN PRN Reason: Nausea And Vomiting Stop: 04/05/22 14:20 Metoprolol Succinate (Metoprolol Succ 50mg Ext Rel Tab) 50 mg PO BID [facility] Stop: 04/04/22 20:59 Last Admin: 03/10/22 07:59 Dose: 50 mg Documented by: Miscellaneous (Carbohydrates For Hypoglycemia ) 15 - 30 gm PO UD PRN PRN Reason: Hypoglycemia Treatment Stop: 04/04/22 20:59 Miscellaneous Information (Pharmacy Glycemic Mgmt Consult) 1 ea N/A UD PRN PRN Reason: Consult Stop: 04/05/22 14:20 Multivitamins (Multivitamin Tab) 1 [facility] Stop: 04/06/22 08:59 Last Admin: 03/10/22 07:59 Dose: 1 tab Documented by: Multivitamins/Minerals (Cerovite Adv Formula Tab) 1 tab PO QAM [facility] Stop: 04/05/22 08:59 Last Admin: 03/10/22 07:59 Dose: 1 tab Documented by: Naloxone HCl (Naloxone Hcl 0.4 Mg/1 Ml Vial/Carp) 0.1 mg IV Q5M PRN PRN Reason: Oversedation/Resp Depression Stop: 04/05/22 14:20 Nitroglycerin (Nitroglycerin Sl 0.4 Mg/Tab Tab) 0.4 mg SL DAILY PRN PRN Reason: Chest Pain Stop: 04/04/22 20:01 Ondansetron HCl (Ondansetron Inj 2 Mg/Ml 2 Ml Vial) 4 mg IV Q6H PRN PRN Reason: Nausea And Vomiting Stop: 04/05/22 14:20 Oxycodone HCl (Oxycodone Hcl Ir 5 Mg Tab (Immediate Release)) 5 - 10 mg PO Q4H PRN PRN Reason: Pain or Pre PT Stop: 03/20/22 14:20 Pantoprazole Sodium (Pantoprazole 40 Mg Tab) 40 mg PO QAM [facility] Stop: 04/05/22 08:59 Last Admin: 03/10/22 07:59 Dose: 40 mg Documented by: Polyethylene Glycol (Polyethylene (Miralax) 17 Gm Pack) 17 gm PO DAILY PRN PRN Reason: Constipation Stop: 04/04/22 20:01 Potassium Chloride (Potassium Chloride Crtab 20 Meq Tabcr) 20 meq PO BID [facility] Stop: 04/04/22 20:59 Last Admin: 03/10/22 07:59 Dose: 20 meq Documented by: Sennosides (Senna 8.6 Mg Tab) 17.2 mg PO HS [facility] Stop: 04/05/22 20:59 Last Admin: 03/09/22 21:27 Dose: 17.2 mg Documented by: Simvastatin (Simvastatin 20 Mg Tab) 20 mg PO HS [facility] Stop: 04/04/22 20:59 Last Admin: 03/09/22 21:26 Dose: 20 mg Documented by: Tramadol HCl (Tramadol Hcl 50 Mg Tablet) 50 mg PO BID [facility] Stop: 04/04/22 20:59 Last Admin: 03/10/22 08:01 Dose: 50 mg Documented by: Trazodone HCl (Trazodone Hcl 50 Mg Tab) 25 mg PO HS [facility] Stop: 04/04/22 20:59 Last Admin: 03/09/22 21:27 Dose: 25 mg Documented by: Umeclidinium/Vilanterol (Umeclidinium/Vilanterol 62.5/25mcg 7 Puffs/Inhaler) 1 puffs INH DAILY [facility] Stop: 04/05/22 08:59 Last Admin: 03/10/22 08:00 Dose: 1 puffs Documented by: Vitamin D (Cholecalciferol 1,000 Units 25 Mcg Tab) 1,000 units PO Mo [facility] Stop: 04/06/22 19:59 Last Admin: 03/07/22 20:02 Dose: 1,000 units Documented by:
[2022-03-10] MEDS: SENNA 8.6 MG TAB PO SCH (20:45)
[2022-03-10] MEDS: SIMVASTATIN 20 MG TAB PO SCH (20:46)
[2022-03-10] MEDS: traZODone HCL 50 MG TAB PO SCH (20:46)
[2022-03-11] MEDS: ACETAMINOPHEN 500 MG TAB PO SCH ×2 (05:17→13:19)
[2022-03-11 06:29] LABS: Basophils # (auto) 0.01 K/uL (0-0.2); Basophils % (auto) 0.1 %; Eosinophils # (auto) 0.18 K/uL (0-0.5); Eosinophils % (auto) 1.4 %; Hematocrit (blood only) 22.7 % (42-52); Hemoglobin 7.4 g/dL (14.0-18.0); Immature Granulocytes # (auto) 0.03 K/uL (0.00-0.02); Immature Granulocytes % (auto) 0.2 %; Lymphocytes # (auto) 2.62 K/uL (1.2-3.4); Lymphocytes % (auto) 20.7 %; Mean Corpuscular Hemoglobin 30.7 pg (25-34); Mean Corpuscular Hgb Conc 32.6 g/dL (32-36); Mean Corpuscular Volume 94.2 fL (80-100); Mean Platelet Volume 10.8 fL (7.4-10.4); Monocytes # (auto) 1.42 K/uL (0.11-0.59); Monocytes % (auto) 11.2 %; Neutrophils # (auto) 8.38 K/uL (1.4-6.5); Neutrophils % (auto) 66.4 %; Platelet Count 228 K/uL (130-400); RDW Coefficient of Variation 13.4 % (11.5-14.5); RDW Standard Deviation 46.4 fL (36.4-46.3); Red Blood Count 2.41 M/uL (4.7-6.1); White Blood Count 12.64 K/uL (4.8-10.8)
[2022-03-11 06:47] LABS: BUN Creatinine Ratio 31.9 (10-20); Calcium 8.4 mg/dl (8.5-10.1); Creatinine Clr Calc Pharmacy 54.7 ml/min; Est GFR (African American) 87.2 ml/min; Est GFR (Non-African American) 75.2 ml/min; Potassium 4.4 mmol/L (3.5-5.1)
[2022-03-11 06:53] LABS: Polychromasia 1+
[2022-03-11] MEDS: ALBUTEROL HFA 8 GM INHALER INH SCH (07:10)
[2022-03-11] MEDS ORDERED: INSULIN ASPART PER UNIT SC SCH (07:30)
[2022-03-11] MEDS: DIPYRIDAMOLE/ASPIRIN CAP PO SCH (08:49)
[2022-03-11] MEDS: DOCUSATE SODIUM 100 MG CAP PO SCH (08:49)
[2022-03-11] MEDS: PANTOprazole 40 MG TAB PO SCH (08:49)
[2022-03-11] MEDS: METOPROLOL SUCC 50MG EXT REL TAB PO SCH (08:49)
[2022-03-11] MEDS: FUROSEMIDE 40 MG TAB PO SCH (08:49)
[2022-03-11] MEDS: dexAMETHasone 1 MG TAB PO SCH (08:49)
[2022-03-11] MEDS: CEROVITE ADV FORMULA TAB PO SCH (08:49)
[2022-03-11] MEDS: MULTIVITAMIN TAB PO SCH (08:49)
[2022-03-11] MEDS: POTASSIUM CHLORIDE CRTAB 20 MEQ TABCR PO SCH (08:50)
[2022-03-11] MEDS: UMECLIDINIUM/VILANTEROL 62.5/25MCG 7 PUFFS/INHALER INH SCH (08:50)
[2022-03-11] MEDS: traMADol HCL 50 MG TABLET PO SCH (08:53)
--- NOTE | 2022-03-11 09:25 | Pharmacy Report ---
Pharmacy Glycemic Short Note 2 - Date of Service March 11, 2022 - Glycemic Short BSG Results (Last 24 hours): 03/10/22 03/10/22 03/10/22 11:42 17:22 20:41 Glucose POC Glucose 297 H 91 69 L* 03/10/22 03/10/22 03/11/22 20:43 20:55 05:53 Glucose 56 L POC Glucose 69 L* 79 03/11/22 08:05 Glucose POC Glucose 80 OUTPATIENT ANTIDIABETIC REGIMEN: * Lantus 40 units SQ HS * Novolog 22 units at breakfast, 22 units at lunch and 12 units at bedtime plus additional prn sliding scale * Above dosing was confirmed with [facility] pharmacy in [place], [place] * HbA1c: 6.2% (03/06/22) ASSESSMENT: 03/11/22: * Last received 59 units of SQ insulin yesterday; 37 units Lantus (18% decrease compared to previous day) & 22 units of Novolog. BSGs trended down throughout the day, leading to an episode of hypoglycemia (BSG 69 mg/dL) at 2040. * Patient also hypoglycemic when labs were drawn this AM, BSG 56 mg/dL. POC from this morning resulted at 80 mg/dL. Will significantly decrease basal insulin and transition back to once daily dosing. * Will also loosen Novolog parameters. Lunchtime hyperglycemia from yesterday (297 mg/dL) is now known to be due to uncovered carbs from breakfast. Patient had told his RN that he would not be eating the pancakes he ordered when in fact he ate them all. 03/10/22: * Glycemic control improved yesterday following increase in Lantus and tightening of carb coverage: * Total 71 units SQ: Lantus 20 + 25, Novolog 26 units * BSGs 199, 223, 124, 168 mg/dL * Fasting BSG of 112 mg/dL this morning. Will back off Lantus dose based on significant decrease from 199 ->112 mg/dL. Also, will start transition back to HS dosing on 03/11. * No change to novolog today per post prandial values have improved. Lunch continues to be the highest BSG of the day. 03/09/22: * BSGs elevated yesterday, 168, 220, 235, and 165 mg/dL, fasting BSG also elevated at 199 mg/dL * Received 64 units of insulin (35 units of Lantus and 29 units of prandial/correctional Novolog) * Tightened Novolog parameters today and will increase Lantus today * Dexamethasone reduced to 2 mg PO daily today 03/08/22: * BSGs yesterday of 96, 212, 113, and 131 mg/dL * Fasting BSG of 168 mg/dL * Received 50 units of insulin (50/50 basal/bolus split) * Continues on dexamethasone 4 mg PO daily * Will increase Lantus today, giving 10 units in AM with PO dexamethasone * Continue tightened Novolog parameters, likely tighten breakfast parameters tomorrow 03/06/22: * 81 y/o M admitted s/p fall and hip fracture yesterday. He had R hip arthroplasty today. NPO this AM. * Patient with history of diabetes managed on basal and bolus insulins at home. * He was on Lantus 5 units SQ BID on admission. Received 5 units last night and this AM. Novolog was also started last night. * Patient received Dexamethasone 4 mg IV x1 in OR today and is also on 4 mg PO daily ongoing which started today AM. * Expect BSG to trend up this evening due to steroid induced hyperglycemia. * Novolog carb ratio tightened with dinner. * Lantus dose increased- scale added for tonight based on BSG. PLAN FOR INPATIENT GLYCEMIC CONTROL: * Basal insulin - decrease * Lantus 25-30 units SC HS - start at dinnertime today, then resume HS dosing on 03/12 * Bolus insulin * NovoLog per scale ACHS or Q6hrs while NPO * Goal Range: Low 120 mg/dL - High 150 mg/dL * Correction Factor: 25 mg/dL/unit * Nutritional / Prandial insulin per carb ratio of 1 unit per 6 grams CHO consumed
[2022-03-11] MEDS ORDERED: SODIUM CHLORIDE 0.9% 250 ML IV PRN ×2 (09:27→09:45)
[2022-03-11] MEDS: INSULIN ASPART PER UNIT SC SCH ×2 (12:58→17:31)
[2022-03-11] MEDS ORDERED: INSULIN GLARGINE SOLOSTAR 100 UNITS/ML 3 ML PEN SC SCH (16:30)
--- NOTE | 2022-03-11 16:40 | Hospitalist Progress Note ---
Date of Service March 11, 2022 Assessment & Plan (1) Displaced fracture of right femoral neck: Plan: 81-year-old male who presented 03/05/22 with fall and right hip fracture. He is being managed for the following: Status post mechanical fall, right hip fracture: The patient is legally blind, ambulates with a walker, poor ambulatory status. Presents with mechanical fall and found to have acute displaced right femoral neck fracture in the ED. Status post Right hip hemiarthroplasty for displaced femoral neck fracture (73338) - Michael Bhakta M.D. Pain management, PT OT, DVT prophylaxis per orthopedics. Incentive spirometer. Continue to monitor. Likely will need placement. Remains stable medically without any significant symptoms Awaiting placement Pain with movement Acute Blood loss anemia: Likely postoperative, monitor HnH, transfuse if <7 Hemoglobin dropped to 7.4 and it has been dropping since surgery Patient remains minimally symptomatic We will give 1 unit of blood transfusion prior to discharge Other chronic medical conditions: Chronic diastolic CHF, COPD, diabetes, CAD, history of TIA, HTN, benign prostatic hyperplasia, legally blind/ambulatory dysfunction Continue with/resume home meds as and when appropriate PT/OT when stable. Insulin sliding scale Patient is on Decadron, most likely given for COPD, if needed use stress dose steroid. Continue to monitor. Decadron dose has been decreased to 2 mg and will taper it off in the next 10 days DVT prophylaxis: Per orthopedics. Started on Aggrenox Admission and Anticipated Discharge Date Admission Date: March 05, 2022 Subjective 03/09/2022 Patient was seen and examined in medical floor He remains stable and denies any significant symptoms Getting some pain in the right hip with activities 03/10/2022 The patient was seen and examined in medical floor He remains stable and denies any significant symptoms Has minimal pain in the right hip with movement 03/11/2022 The patient was seen and examined in medical floor His hemoglobin dropped to 7.4 and it has been dropping since surgery Patient remains weak without any other significant symptoms Will give 1 unit of blood transfusion Review of Systems Review of Systems: All systems reviewed and are unremarkable except as noted below Physical Exam Physical Exam: Lying in bed comfortably Constitutional: well developed, well nourished and + ill appearing Eyes: PERRL, conjunctivae normal, anicteric sclerae ENMT: external ear and nose normal, oropharynx normal Neck: trachea midline, no thyromegaly Respiratory: no respiratory distress Auscultation: lungs clear to auscultation bilaterally Cardiovascular: Rate/Rhythm: regular rate and regular rhythm; not tachycardic Heart Sounds: normal S1 and normal S2; no murmur Extremities: no edema Gastrointestinal (Abdomen): Inspection/Auscultation: + abdomen distended and normal bowel sounds Percussion/Palpation: abdomen soft; abdomen nontender Neurologic: moves all extremities; no focal motor deficits and not confused Lymphatic: no cervical or axillary lymphadenopathy Results & Data Results & Data ([facility]) Vital Signs (Past 12 Hours) Vital Signs Temp Pulse Pulse Resp BP BP Pulse Ox 03/11/22 15:32 36.7 C 66 18 126/64 96 03/11/22 15:10 36.7 C 64 18 128/66 96 03/11/22 14:40 36.6 C 67 18 160/74 H 97 03/11/22 13:40 36.6 C 65 18 131/57 L 98 03/11/22 13:10 36.5 C 64 18 145/55 H 97 03/11/22 12:55 36.6 C 65 20 120/54 L 98 03/11/22 12:54 36.6 C 65 20 120/54 L 98 03/11/22 12:29 36.9 C 67 20 156/55 H 99 03/11/22 07:30 36.6 C 60 18 129/65 99 03/11/22 07:11 74 18 98 Laboratory Results Short CBC 03/11/22 Range/Units 05:53 WBC 12.64 H (4.8-10.8) K/uL Hgb 7.4 L (14.0-18.0) g/dL Hct 22.7 L (42-52) % Plt Count 228 (130-400) K/uL BMP 03/11/22 05:53 Sodium 137 Potassium 4.4 Chloride 102 Carbon Dioxide 32 BUN 30 H Creatinine 0.94 Glucose 56 L Calcium 8.4 L Medications Administered Current Inpatient Medications Acetaminophen (Acetaminophen 500 Mg Tab) 1,000 mg PO Q8 ANGELA Stop: 04/05/22 14:29 Last Admin: 03/11/22 13:19 Dose: 1,000 mg Documented by: Al Hydrox/Mg Hydrox/Simethicone (Aluminum/Magnesium Susp 30 Ml Udc) 15 ml PO Q4H PRN PRN Reason: Heartburn Stop: 04/05/22 14:20 Albuterol (Albuterol Hfa 8 Gm Inhaler) 1 puffs INH DAILY ANGELA; Protocol Stop: 04/05/22 08:59 Last Admin: 03/11/22 07:10 Dose: 1 puffs Documented by: Bisacodyl (Bisacodyl 10 Mg Supp) 10 mg MN DAILY PRN PRN Reason: Constipation Stop: 04/05/22 14:20 Dexamethasone (Dexamethasone 1 Mg Tab) 2 mg PO DAILY [facility] Stop: 04/08/22 08:59 Last Admin: 03/11/22 08:49 Dose: 2 mg Documented by: Dextrose (Dextrose 50% 50 Ml Syringe) 25 - 50 ml IV UD PRN; Protocol PRN Reason: Hypoglycemia Protocol Stop: 04/04/22 20:59 Diphenhydramine HCl (Diphenhydramine Capsule 25 Mg Cap) 25 mg PO Q8H PRN PRN Reason: Itching Stop: 04/05/22 14:20 Dipyridamole/Aspirin (Dipyridamole/Aspirin Cap) 1 cap PO DAILY [facility] Stop: 04/05/22 08:59 Last Admin: 03/11/22 08:49 Dose: 1 cap Documented by: Docusate Sodium (Docusate Sodium 100 Mg Cap) 100 mg PO BID [facility] Stop: 04/05/22 20:59 Last Admin: 03/11/22 08:49 Dose: 100 mg Documented by: Furosemide (Furosemide 40 Mg Tab) 40 mg PO QAM [facility] Stop: 04/05/22 08:59 Last Admin: 03/11/22 08:49 Dose: 40 mg Documented by: Glucagon (Glucagon For Inj 1 Mg Vial) 1 mg IM UD PRN; Protocol PRN Reason: Hypoglycemia Protocol Stop: 04/04/22 20:59 Glucose (Glucose 40% Gel 15 Gm Tube) 15 - 30 gm PO UD PRN; Protocol PRN Reason: Hypoglycemia Protocol Stop: 04/04/22 20:59 Glucose (Glucose 10 Tabs/Tube) 4 - 8 tabs PO UD PRN; Protocol PRN Reason: Hypoglycemia Protocol Stop: 04/04/22 20:59 Hydromorphone HCl (Hydromorphone Inj 0.5 Mg/0.5 Ml Syr) 0.5 mg IV Q2H PRN PRN Reason: Pain or Pre PT Stop: 03/20/22 14:20 Sodium Chloride (Nss) 250 mls @ 15 mls/hr IV .[id number] PRN PRN Reason: For Transfusion Stop: 03/11/22 19:28 Sodium Chloride (Nss) 250 mls @ 15 mls/hr IV .[id number] PRN PRN Reason: For Transfusion Stop: 03/11/22 19:45 Insulin Aspart (Insulin Aspart Per Unit) 0 units SC 0730 [facility] Stop: 04/10/22 07:29 Last Admin: 03/11/22 08:56 Dose: 6 units Documented by: Insulin Aspart (Insulin Aspart Per Unit) 0 units SC 1130,1630,2100 [facility] Stop: 04/09/22 16:29 Last Admin: 03/11/22 12:58 Dose: 10 units Documented by: Insulin Glargine (Insulin Glargine Solostar 100 Units/Ml 3 Ml Pen) 0 units SC HS [facility]; Protocol Stop: 04/10/22 16:29 Ketorolac Tromethamine (Ketorolac Tromethamine 15 Mg/Ml Vial) 15 mg IV Q6H PRN PRN Reason: Breakthrough Pain Magnesium Hydroxide (Magnesium Hydroxide Susp 30 Ml Udc) 30 ml PO Q6H PRN PRN Reason: Constipation Stop: 04/05/22 14:20 Metoclopramide HCl (Metoclopramide Hcl Inj 5 Mg/Ml 2 Ml Vial) 10 mg IV Q6H PRN PRN Reason: Nausea And Vomiting Stop: 04/05/22 14:20 Metoprolol Succinate (Metoprolol Succ 50mg Ext Rel Tab) 50 mg PO BID [facility] Stop: 04/04/22 20:59 Last Admin: 03/11/22 08:49 Dose: 50 mg Documented by: Miscellaneous (Carbohydrates For Hypoglycemia ) 15 - 30 gm PO UD PRN PRN Reason: Hypoglycemia Treatment Stop: 04/04/22 20:59 Last Admin: 03/10/22 20:48 Dose: 15 gm Documented by: Miscellaneous Information (Pharmacy Glycemic Mgmt Consult) 1 ea N/A UD PRN PRN Reason: Consult Stop: 04/05/22 14:20 Multivitamins (Multivitamin Tab) 1 tab PO QAM [facility] Stop: 04/06/22 08:59 Last Admin: 03/11/22 08:49 Dose: 1 tab Documented by: Multivitamins/Minerals (Cerovite Adv Formula Tab) 1 tab PO QAM [facility] Stop: 04/05/22 08:59 Last Admin: 03/11/22 08:49 Dose: 1 tab Documented by: Naloxone HCl (Naloxone Hcl 0.4 Mg/1 Ml Vial/Carp) 0.1 mg IV Q5M PRN PRN Reason: Oversedation/Resp Depression Stop: 04/05/22 14:20 Nitroglycerin (Nitroglycerin Sl 0.4 Mg/Tab Tab) 0.4 mg SL DAILY PRN PRN Reason: Chest Pain Stop: 04/04/22 20:01 Ondansetron HCl (Ondansetron Inj 2 Mg/Ml 2 Ml Vial) 4 mg IV Q6H PRN PRN Reason: Nausea And Vomiting Stop: 04/05/22 14:20 Oxycodone HCl (Oxycodone Hcl Ir 5 Mg Tab (Immediate Release)) 5 - 10 mg PO Q4H PRN PRN Reason: Pain or Pre PT Stop: 03/20/22 14:20 Pantoprazole Sodium (Pantoprazole 40 Mg Tab) 40 mg PO QAM [facility] Stop: 04/05/22 08:59 Last Admin: 03/11/22 08:49 Dose: 40 mg Documented by: Polyethylene Glycol (Polyethylene (Miralax) 17 Gm Pack) 17 gm PO DAILY PRN PRN Reason: Constipation Stop: 04/04/22 20:01 Potassium Chloride (Potassium Chloride Crtab 20 Meq Tabcr) 20 meq PO BID [facility] Stop: 04/04/22 20:59 Last Admin: 03/11/22 08:50 Dose: 20 meq Documented by: Sennosides (Senna 8.6 Mg Tab) 17.2 mg PO [facility] Stop: 04/05/22 20:59 Last Admin: 03/10/22 20:45 Dose: 17.2 mg Documented by: Simvastatin (Simvastatin 20 Mg Tab) 20 mg PO [facility] Stop: 04/04/22 20:59 Last Admin: 03/10/22 20:46 Dose: 20 mg Documented by: Tramadol HCl (Tramadol Hcl 50 Mg Tablet) 50 mg PO BID [facility] Stop: 04/04/22 20:59 Last Admin: 03/11/22 08:53 Dose: 50 mg Documented by: Trazodone HCl (Trazodone Hcl 50 Mg Tab) 25 mg PO HS ANGELA Stop: 04/04/22 20:59 Last Admin: 03/10/22 20:46 Dose: 25 mg Documented by: Umeclidinium/Vilanterol (Umeclidinium/Vilanterol 62.5/25mcg 7 Puffs/Inhaler) 1 puffs INH DAILY ANGELA Stop: 04/05/22 08:59 Last Admin: 03/11/22 08:50 Dose: 1 puffs Documented by: Vitamin D (Cholecalciferol 1,000 Units 25 Mcg Tab) 1,000 units PO Mo ANGELA Stop: 04/06/22 19:59 Last Admin: 03/07/22 20:02 Dose: 1,000 units Documented by:
--- NOTE | 2022-03-12 08:38 | Discharge Summary ---
Date of Service March 12, 2022 Admission HPI Per Admitting Provider DICTATED BY:Satya Simon MD DATE OF ADMISSION: 03/05/2022. CHIEF COMPLAINT: Status post fall and right hip fracture. HISTORY OF PRESENT ILLNESS: An 81-year-old male with past medical history significant for type 2 diabetes, COPD, CAD, diastolic CHF, hypertension, history of TIA, obesity, GERD, history of urinary retention, BPH, history of closed fracture of left clavicle, history of alcoholism in the past and leukocytosis, history of tobacco use, history of fall, history of generalized weakness, legal blindness. Currently residing with his daughter and her , comes with a fall. The patient ambulates with a walker. He was trying to get up from the bed today when he fell, did not lost consciousness, his daughter and his son-in-law to help him to get up and brought him here and found to have right hip fracture. Currently, resting comfortably and hemodynamically stable. Denies any headache, no dizziness. He can only see short distance, he is legally blind, no runny nose, no sore throat. He is having a cough for 1 week. He says he has some low-grade fever yesterday, but daughter thinks he did not had any fever yesterday. His appetite is okay. Eating, drinking and swallows okay as per daughter. The patient denies any chest pain. He says sometimes he gets short of breath. No nausea, no vomiting, no abdominal pain, normal bowel and bladder movements, hemodynamically stable. Admission Exam Per Admitting Provider GENERAL: The patient is of moderate build, not in acute distress. VITAL SIGNS: Temperature 36.9, pulse 55, respiratory rate 20, blood pressure 126/61, oxygen 99% on 2 liters. HEENT: Pupils equal, round and reactive to light. Oral mucosa dry. NECK: No JVD, no neck masses. CARDIOVASCULAR: S1 and S2 heard. Regular rate and rhythm. No murmur, no gallop. RESPIRATORY SYSTEM: Normal AP diameter. No accessory muscle use. No wheezing, no crackles. ABDOMEN: Soft. Bowel sounds are present, nontender, no distention. CENTRAL NERVOUS SYSTEM: Alert and oriented. Speech is clear. No facial droop. Obeys simple commands. Moves extremities except for right lower extremity. EXTREMITIES: Right lower extremity is shortened. No edema, no erythema seen. Principal Diagnosis Fall with right femoral neck fracture status post repair, acute blood loss anemia required 1 unit of transfusion, chronic diastolic CHF, COPD, CAD, hypertension, legally blind with ambulatory dysfunction Discharge Exam Lying in bed comfortably Constitutional well developed, well nourished and + ill appearing Eyes PERRL, conjunctivae normal, anicteric sclerae ENMT external ear and nose normal, oropharynx normal Neck trachea midline, no thyromegaly Respiratory no respiratory distress Auscultation: lungs clear to auscultation bilaterally Cardiovascular Rate/Rhythm: regular rate and regular rhythm; not tachycardic Heart Sounds: normal S1 and normal S2; no murmur Extremities: no edema Gastrointestinal (Abdomen) Inspection/Auscultation: + abdomen distended and normal bowel sounds Percussion/Palpation: abdomen soft; abdomen nontender Neurologic moves all extremities; no focal motor deficits and not confused Lymphatic no cervical or axillary lymphadenopathy Discharge Data Allergies Allergy/AdvReac Type Severity Reaction Status Date / Time Penicillins Allergy Intermediate RASH ALONE Verified 03/05/22 15:20 aspirin Allergy Unknown BUT Verified 03/05/22 15:20 PATIENT TAKES AGGRENOX AT HOME? Consultations 03/05/22 13:23 Consult Orthopedic Surgery Stat 03/05/22 13:52 ED Decision to Admit Stat Procedures Performed Operation Date: 03/06/22 14:00 Actual Procedures p Bipolar Hip Prosthesis(Right) - Michael Bhakta M.D. Hospital Course (1) Displaced fracture of right femoral neck: 81-year-old male who presented 03/05/22 with fall and right hip fracture. He is being managed for the following: Status post mechanical fall, right hip fracture: The patient is legally blind, ambulates with a walker, poor ambulatory status. Presents with mechanical fall and found to have acute displaced right femoral neck fracture in the ED. Status post Right hip hemiarthroplasty for displaced femoral neck fracture (05932) - Michael Bhakta M.D. Pain management, PT OT, DVT prophylaxis per orthopedics. Incentive spirometer. Continue to monitor. Likely will need placement. Remains stable medically without any significant symptoms Awaiting placement Pain with movement Acute Blood loss anemia: Likely postoperative, monitor HnH, transfuse if <7 Hemoglobin dropped to 7.4 and it has been dropping since surgery Patient remains minimally symptomatic We will give 1 unit of blood transfusion prior to discharge Other chronic medical conditions: Chronic diastolic CHF, COPD, diabetes, CAD, history of TIA, HTN, benign prostatic hyperplasia, legally blind/ambulatory dysf unction Continue with/resume home meds as and when appropriate PT/OT when stable. Insulin sliding scale Patient is on Decadron, most likely given for COPD, if needed use stress dose steroid. Continue to monitor. Decadron dose has been decreased to 2 mg and will taper it off in the next 10 days DVT prophylaxis: Per orthopedics. Started on Aggrenox Total Time Total Time Spent Total Time Spent (In Minutes): 35 minutes Discharge Plan Discharge Items Patient Disposition: Home - Home Health Services Reason For Visit: FALL Discharge Diagnosis: Fall with right femoral neck fracture status post repair, acute blood loss anemia required 1 unit of transfusion, chronic diastolic CHF, COPD, CAD, hypertension, legally blind with ambulatory dysfunction Condition on Discharge: Fair Activity: As commented below Activity Comment: Take extra precaution to avoid fall Weightbearing: Right weightbearing Weightbearing Comment: as tolerated with walker Non-emergency contact: Surgeon Call non-emergency contact if: your pain is not controlled, your temperature is above 101.5, your wound has increased redness and your wound has increased drainage Follow-up/Referrals: Rudy Yoon M.D. [Primary Care Provider] - Michael Bhakta M.D. [Physician] - (Follow up in 14 days from the day of surgery for your first post operative visit) Diet: Carb Consistent or DM2 and Heart Healthy Addtl Attending Provider Instructions: Please take extra precautions to avoid falls Keep appointments with your healthcare provider Continue with the physical therapy as advised Your Decadron dose is not decreased to 2 mg a day -please discuss with your PCP when that can be taken off or current dose needs to be continued Insulin doses have been adjusted and may need to be readjusted by the PCP during follow-up Addtl Box Printer Provider Instructions: ACTIVITY RECOMMENDATIONS: SELF CARE INSTRUCTIONS AFTER TOTAL HIP REPLACEMENT Until the incision and soft tissues around your hip have healed, there is a possibility that the hip prosthesis could dislocate. A. Observe the following precautions to prevent dislocation: 1. Don't bend your hip greater than 90 degrees. 2. Avoid crossing your legs or ankles while standing or lying. 3. Sit with your feet placed 6 inches apart. 4. When sitting, keep your knees below your hips. Sit on a firm surface, avoid deep, soft chairs and couches. Use an elevated toilet seat in the bathroom. 5. Don't bend over at the waist. Use a long handled shoehorn and a sock aid to help you put on your shoes and socks. A automation application engineer can help you worm picker objects that are too high or too low to reach. 6. Keep car riding to a minimum for at least one month after surgery. B. Your balance may be shaky for a while. Use crutches or a walker until directed by your doctor. C. Use hand rails when walking on stairs. D. Wear low heeled shoes with non-slip soles. E. Be sure that your floors are free of things that could trip you - throw rugs, electrical cords, small objects. Avoid wet and waxed floors, especially with crutches and canes. F. Try to walk several times a day with rest periods between. G. Continue with all the exercises taught to you in the hospital. Again, make walking a part of your daily routine. SPECIAL CARE INSTRUCTIONS: VERY IMPORTANT TO READ AND REVIEW A. You may still be at risk for phlebitis and blood clots. 1. Wear surgical stockings (DANI hose) for 2 weeks after surgery to improve circulation and reduce swelling. 2. Take Aggrenox (aspirin/dipyridamole) daily 3. High risk patients may be prescribed a stronger blood thinner if necessary. 4. If you are on Coumadin normally, your family doctor/log snaker should monitor your blood work. Expect a phone call the day of or the day after bloodwork is drawn to adjust your dosage. B. You must take antibiotics before having dental work, bladder, bowel and other surgery. Your doctor will provide you with a permanent card to carry describing precautions. C. Call [facility] if you have a fever, redness or swelling around the incision, cloudy drainage from incision, or sudden increase in pain in your hip, not relieved by your regular pain medication. D. Please call the office at if you have any concerns or questions about your operation or recovery. * YOU MAY SHOWER, NO TUB BATHS UNTIL CLEARED BY YOUR DOCTOR. * WEAR DANI HOSE 20 HOURS PER DAY FOR 2 WEEKS. * YOU SHOULD USE A WALKER OR CRUTCHES FOR 2-4 WEEKS. THIS WILL HELP PREVENT STRAIN ON YOUR HIP MUSCLE AND ALLOW IT TO HEAL PROPERLY. YOU MAY WEAN TO A CANE TOLERATED. * MOST PATIENTS WILL HAVE HOME NURSING FOR THERAPY. IF YOU DECIDE TO DO OUTPATIENT PHYSICAL THERAPY, PLEASE SCHEDULE THIS 3 TIMES PER WEEK. * Silverlon- This is a large adhesive bandage that contains silver ions. This helps your incision heal by fighting off bacteria and protecting it from the outside environment. You are permitted to shower with this dressing. This will remain on your incision for 7 days and then should be removed. Some visible blood or drainage through the dressing window is normal. If there is significant drainage or leaking noted before the 7 days notify your doctor's office immediately. Once removed, keep incision clean and dry. If there is any drainage or redness noted, please call your surgeon. . FOLLOW UP VISIT: If appointment is not already scheduled: Please call [facility] to make a follow-up appointment for 2 weeks after your surgery at . Pending Studies at Discharge: No Stand-Alone Forms: My [facility] [employer], Smoking Cessation Medications and DC Order Prescriptions: Continued furosemide 40 mg tablet 40 mg PO QAM RF: 0 aspirin-dipyridamole 25-200 mg capsule, ER multiphase 12 hr 1 cap PO DAILY RF: 0 potassium chloride 10 mEq capsule, extended release 20 meq PO BID RF: 0 trazodone 50 mg Tablet 25 mg PO HS RF: 0 metoprolol succinate 50 mg tablet extended release 24 hr 50 mg PO BID RF: 0 tramadol 50 mg tablet 50 mg PO BID RF: 0 pantoprazole 40 mg tablet,delayed release (DR/EC) 40 mg PO QAM RF: 0 simvastatin 20 mg tablet 20 mg PO HS RF: 0 nitroglycerin 0.4 mg tablet, sublingual 0.4 mg sublingual DAILY PRN (Reason: Chest Pain) RF: 0 albuterol sulfate 90 mcg/actuation HFA aerosol inhaler 1 puff INHALATION DAILY RF: 0 cholecalciferol (vitamin D3) 1,250 mcg (50,000 unit) capsule 1,250 mcg PO WK RF: 0 PreserVision AREDS 7,160 unit- 113 mg-100 unit Tablet 1 tab PO QAM RF: 0 Anoro Ellipta 62.5-25 mcg/actuation blister with device 1 ea INHALATION DAILY RF: 0 Changed dexamethasone 4 mg tablet 2 mg PO DAILY Qty: 0 RF: 0 insulin aspart U-100 [Novolog Flexpen U-100 Insulin] 100 unit/mL (3 mL) insulin pen See Rx Instructions .ROUTE .COMPLEX Qty: 0 RF: 0 Lantus Solostar U-100 Insulin 100 unit/mL (3 mL) Insulin Pen 32 unit SUBCUT HS Qty: 0 RF: 0 Discharge Orders: Discharge Order (Routine); Ordered 03/11/22 Ordered By: Lai Martinez/Other Patient Handouts: Managing Type 2 Diabetes Admission Data Admit Date/Time: 03/05/22 17:07 Attending Provider: Lai Gupta Admit Provider: Satya Simon Primary Care Provider: Rudy Yoon Other Providers: Michael Bhakta ; Satya Simon ; Rony Parham ; [facility] Other Interventions: Discharge Summary Assessment (RN) Last Done: 03/11/22 17:23
== END 2022-03-11 18:30 | disposition home health service (06) | DRG 522 ==
LOC: ED 11:05 → SUATTDRO 17:07 → 3E 17:07

== ENCOUNTER 2022-10-01 18:23 | Inpatient (IN) ==
[2022-10-01] MEDS ORDERED: ALBUT/IPRATROP 3MG/0.5MG NEB 3 ML VIAL NEB STA (18:37)
--- NOTE | 2022-10-01 18:47 | Emergency Department Note ---
Impression & Plan COVID-19, Weakness ED Provider Note Provider: Luis Fowler MD DATE OF SERVICE: 10/01/2022 CHIEF COMPLAINT: Weakness HISTORY OF PRESENT ILLNESS: Patient is a 82-year-old gentleman significant history of type 2 diabetes, COPD, CAD with CHF, hypertension, TIA, BPH presenting here today via ambulance from his home. Evidently become much more weak today. Lives with family at home and patient is legally blind but ambulates with a walker. 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 This is unchanged. Generally weak. Reports short of breath with ambulation but denies significant length still. Not on home oxygen. Recent exposure to daughter with COVID earlier this week. Patient states he is not vaccinated but had COVID previously but was hospitalized. EMS report that the family noted a low pulse ox with the patient into the 80s when he was ambulating at home with his walker previously this evening. Patient denies any nausea vomiting or chest pain. Some chronic cough reported. States he feels a bit thirsty but denies significant leg swelling. Denies any falls or loss of consciousness. Patient did take some Tylenol before coming via EMS. REVIEW OF SYSTEMS: A total of 10 review of systems was obtained and negative except as stated above in the HPI. PAST MEDICAL HISTORY: As noted above MEDICATIONS: No medications SOCIAL HISTORY: Former smoker, lives with family, uses chewing tobacco PHYSICAL EXAM: GENERAL: alert and oriented in no acute distress on stretcher Head: normocephalic and atraumatic EYES: No injection, discharge or icterus. PERRL NECK: Trachea midline. Supple. ENT: Mucous membranes pink and slightly dry with some residual chewing tobacco. Pharynx without erythema or exudate. LUNGS: Airway patent. No retractions. Breath sounds with faint expiratory wheeze. HEART: Regular rate and rhythm. No chest wall tenderness ABDOMEN: Soft and non-tender, without guarding or rebound. SKIN: Acyanotic, warm, dry, without rashes EXTREMITIES: Without significant swelling and contractures and is wasting of the left arm and leg. No significant tenderness on exam. NEUROLOGICAL: No significant aphasia or slurred speech. Some contractures and significant decree strength of the left arm and leg. Moving the right arm and leg okay. EK bpm normal sinus rhythm with right bundle branch block. No PVC or PAC. No acute ST segment elevation or depression with a QTC of 470. CONTINUOUS CARDIAC MONITORING: was ordered and showed a heart rate of 70s bpm in NSR Patient's laboratory studies and imaging reviewed. Differential includes Infection, dehydration, metabolic abnormality, hypo/hyperglycemia, electrolyte disturbance, anemia, hypoxia, cardiac sources, intracerebral event, toxicologic, neurologic, as well as other pathologies. IMPRESSION/MEDICAL DECISION MAKING: Reviewed prior records and patient with multiple medical comorbidities unvaccinated for COVID recent exposure. Generalized weakness today with some shortness of breath with exertion. Patient not on oxygen at baseline and satting well here initially. Not having significant symptoms at rest of shortness of breath. States generally weak. Afebrile but did take Tylenol prior to arrival. No significant edema noted on physical exam. Chronic stroke findings from previous CVAs are noted. COVID and flu testing was sent as well as basic labs. EKG and troponin completed, but low suspicion given history provided of ACS. Patient with improved anemia. No leukocytosis. Synthroid thrombocytopenia is new today. Slight hyponatremia. No significant renal dysfunction. No troponin elevation. TSH within normal limits. Patient is COVID-positive today likely explaining his weakness. Discussed with the patient at bedside. Not hypoxic at rest. Patient significantly weak however and states that he can walk with his walker. Given his generalized weakness from the COVID, his chronic medical conditions and blindness, and current home living condition even with assistance do not feel he can go home at this time. Discussed with the hospitalist DIAGNOSIS: weakness, COVID-19 DISPOSITION: Hospitalist will evaluate Patient was agreeable with this plan. Past Med/Surg History Medical History COPD (chronic obstructive pulmonary disease) Coronary artery disease Diabetes High cholesterol Hypertension Surgical History S/P CABG (coronary artery bypass graft) Social History Smoking Status: Former smoker Cigarettes Per Day: 3 packs a day; Second Hand Exposure: Yes; Hx Alcohol Use: No Hx Substance Use: Yes Preferred Language: Senegalese Communication Ability: Impaired Co Teacher Required: No Beliefs That Will Affect Care: None marital status: Current Living Situation: Family Current Living Situation Comment: lives with daughter Feels Safe at Home: Yes Assistive Devices: Walker Allergies Allergies Allergy/AdvReac Type Severity Reaction Status Date / Time Penicillins Allergy Intermediate RASH ALONE Verified 03/05/22 15:20 aspirin Allergy Unknown BUT Verified 03/05/22 15:20 PATIENT TAKES AGGRENOX AT HOME? Home Meds Home Medications Medication Instructions Recorded Confirmed albuterol sulfate 90 mcg/actuation 2 puff inhalation Q6 PRN Shortness 03/05/22 10/01/22 aerosol inhaler Of Breath Or Wheezing aspirin 25 mg-dipyridamole 200 mg 1 cap PO DAILY 03/05/22 10/01/22 capsule,ext.release 12 hr multiphase cholecalciferol (vitamin D3) 1,250 1,250 mcg PO WK 03/05/22 10/01/22 mcg (50,000 unit) capsule furosemide 40 mg tablet 40 mg PO QAM 03/05/22 10/01/22 metoprolol succinate 50 mg 50 mg PO DAILY 03/05/22 10/01/22 tablet,extended release 24 hr pantoprazole 40 mg tablet,delayed 40 mg PO QAM 03/05/22 10/01/22 release simvastatin 20 mg tablet 20 mg PO HS 03/05/22 10/01/22 tramadol 50 mg tablet 50 mg PO BID PRN Pain 03/05/22 10/01/22 trazodone 50 mg tablet 50 mg PO HS 03/05/22 10/01/22 umeclidinium 62.5 mcg-vilanterol 1 ea inhalation DAILY 03/05/22 10/01/22 25 mcg/actuation powdr for inhalation (Anoro Ellipta) vitamins A,C,W-buwp-ookkzx 2,148 1 tab PO QAM 03/05/22 10/01/22 mcg-113 mg-45 mg-17.4 mg tablet (PreserVision AREDS) cetirizine 10 mg tablet 10 mg PO DAILY 10/01/22 10/01/22 cyanocobalamin (vitamin B-12) 1,000 mcg PO DAILY 10/01/22 10/01/22 1,000 mcg tablet finasteride 5 mg tablet 5 mg PO DAILY 10/01/22 10/01/22 fluticasone propionate 50 2 spray intranasal DAILY 10/01/22 10/01/22 mcg/actuation nasal spray,suspension insulin aspart U-100 100 unit/mL 1 sliding scale dose subcut TIDM 10/01/22 10/01/22 (3 mL) subcutaneous pen (Novolog Flexpen U-100 Insulin aspart) insulin glargine 100 unit/mL (3 40 unit subcut HS 10/01/22 10/01/22 mL) subcutaneous pen (Lantus Solostar U-100 Insulin) potassium chloride 20 mEq 40 meq PO DAILY 10/01/22 10/01/22 tablet,extended release prochlorperazine maleate 5 mg 5 - 10 mg PO Q8 PRN Nausea 10/01/22 10/01/22 tablet tamsulosin 0.4 mg capsule 0.4 mg PO DAILY 10/01/22 10/01/22 Results & Data (ED) Vital Signs Vital Signs - 24 hr 10/01/22 18:38 10/01/22 18:38 10/01/22 18:38 Temperature 37.4 C Temperature Source Oral Pulse Rate 79 Pulse Rate [Apical] Respiratory Rate 16 Respiratory Effort / Characteristics Non-Labored Spontaneous Respiratory Depth Normal Respiratory Pattern Regular Blood Pressure 133/68 Blood Pressure [Right Arm] Blood Pressure Mean 89 Blood Pressure Mean [Right Arm] Blood Pressure Position Sitting Pulse Oximetry 94 Oxygen Delivery Method Room Air Room Air Room Air Sepsis Recent Fever Within 48 Hours Yes Sepsis New/Unexplained Change in Mental Status No Sepsis Action Taken by Nursing No Action Required 10/01/22 19:37 10/01/22 21:00 10/01/22 22:53 Temperature Temperature Source Pulse Rate Pulse Rate [Apical] 71 73 69 Respiratory Rate 20 18 20 Respiratory Effort / Characteristics Respiratory Depth Respiratory Pattern Blood Pressure Blood Pressure [Right Arm] 127/55 L 114/74 121/42 L Blood Pressure Mean Blood Pressure Mean [Right Arm] 79 87 68 Blood Pressure Position Pulse Oximetry 94 92 94 Oxygen Delivery Method Room Air Room Air Room Air Sepsis Recent Fever Within 48 Hours Sepsis New/Unexplained Change in Mental Status Sepsis Action Taken by Nursing Laboratory Data Result diagrams: 10/01/22 18:45 10/01/22 18:45 Lab Results 10/01/22 10/01/22 10/01/22 Range/Units 18:45 18:45 18:45 WBC 9.68 (4.8-10.8) K/ul RBC 3.44 L (4.63-6.08) M/uL Hgb 10.7 L (14.0-18.0) g/dl Hct 32.9 L (40.1-51.0) % MCV 95.6 (80.0-100.0) fL MCH 31.1 (25.0-34.0) pg MCHC 32.5 (32.0-36.0) g/dL RDW Std Deviation 48.2 H (36.4-46.3) fL RDW Coeff of Eliana 13.8 (11.5-14.5) % Plt Count 117 L (130-400) K/uL MPV 11.8 (9.4-12.4) fL Immature Gran % (Auto) 0.6 % Neut % (Auto) 85.4 % Lymph % (Auto) 4.1 % [place] % (Auto) 9.7 % Eos % (Auto) 0.1 % Baso % (Auto) 0.1 % Neut # (Auto) 8.26 H (1.4-6.5) K/uL Lymph # (Auto) 0.40 L (1.2-3.4) K/uL [place] # (Auto) 0.94 H (0.24-0.82) K/uL Eos # (Auto) 0.01 (0-0.50) K/uL Baso # (Auto) 0.01 (0-0.2) K/uL Immature Gran # (Auto) 0.06 H (0.00-0.02) K/uL Platelet Estimate Decreased L (Normal) Sodium 134 L (136-145) mmol/L Potassium 4.4 (3.5-5.1) mmol/L Chloride 101 (98-107) mmol/L Carbon Dioxide 28 (21-32) mmol/L Anion Gap 5 (3-11) BUN 14 (6-23) mg/dl Creatinine 0.88 (0.6-1.4) mg/dl Est Cr Clr Drug Dosing 59.5 ml/min Est GFR ( Amer) 92.1 ml/min Est GFR (Non-Af Amer) 79.4 ml/min BUN/Creatinine Ratio 15.9 (10-20) Glucose 144 H (70-99(Fasting)) mg/dl POC Glucose (70-99) mg/dl Calcium 8.2 L (8.5-10.1) mg/dl Magnesium 1.8 (1.7-2.4) mg/dl Total Bilirubin 0.4 (0.2-1.0) mg/dl AST 33 (13-39) U/L ALT 21 (7-52) U/L Alkaline Phosphatase 123 H (34-104) U/L Troponin I High Sens 12.0 (0-20) pg/ml B-Natriuretic Peptide (0-100) pg/ml Total Protein 6.2 (6.0-8.3) gm/dl Albumin 3.3 L (3.4-5.0) gm/dl Globulin 2.9 (2.5-4.0) gm/dl Albumin/Globulin Ratio 1.1 (0.9-2) TSH 0.759 (0.300-4.500) uIu/ml Urine Color Urine Appearance (Clear) Urine pH (4.5-7.5) Ur Specific [place] (1.000-1.030) Urine Protein (Negative) Urine Glucose (UA) (Negative) Urine Ketones (Negative) Urine Blood (Negative) Urine Nitrite (Negative) Urine Bilirubin (Negative) Urine Urobilinogen (Negative) Ur Leukocyte Esterase (Negative) SARS-CoV-2 (PCR) (Negative) Influenza Type A (PCR) (Neg) Influenza Type B (PCR) (Neg) RSV (RT-PCR) (Neg) 10/01/22 10/01/22 10/01/22 Range/Units 18:45 18:45 22:08 WBC (4.8-10.8) K/ul RBC (4.63-6.08) M/uL Hgb (14.0-18.0) g/dl Hct (40.1-51.0) % MCV (80.0-100.0) fL MCH (25.0-34.0) pg MCHC (32.0-36.0) g/dL RDW Std Deviation (36.4-46.3) fL RDW Coeff of Eliana (11.5-14.5) % Plt Count (130-400) K/uL MPV (9.4-12.4) fL Immature Gran % (Auto) % Neut % (Auto) % Lymph % (Auto) % [place] % (Auto) % Eos % (Auto) % Baso % (Auto) % Neut # (Auto) (1.4-6.5) K/uL Lymph # (Auto) (1.2-3.4) K/uL [place] # (Auto) (0.24-0.82) K/uL Eos # (Auto) (0-0.50) K/uL Baso # (Auto) (0-0.2) K/uL Immature Gran # (Auto) (0.00-0.02) K/uL Platelet Estimate (Normal) Sodium (136-145) mmol/L Potassium (3.5-5.1) mmol/L Chloride (98-107) mmol/L Carbon Dioxide (21-32) mmol/L Anion Gap (3-11) BUN (6-23) mg/dl Creatinine (0.6-1.4) mg/dl Est Cr Clr Drug Dosing ml/min Est GFR ( Amer) ml/min Est GFR (Non-Af Amer) ml/min BUN/Creatinine Ratio (10-20) Glucose (70-99(Fasting)) mg/dl POC Glucose (70-99) mg/dl Calcium (8.5-10.1) mg/dl Magnesium (1.7-2.4) mg/dl Total Bilirubin (0.2-1.0) mg/dl AST (13-39) U/L ALT (7-52) U/L Alkaline Phosphatase (34-104) U/L Troponin I High Sens (0-20) pg/ml B-Natriuretic Peptide 235 H (0-100) pg/ml Total Protein (6.0-8.3) gm/dl Albumin (3.4-5.0) gm/dl Globulin (2.5-4.0) gm/dl Albumin/Globulin Ratio (0.9-2) TSH (0.300-4.500) uIu/ml Urine Color Yellow Urine Appearance Clear (Clear) Urine pH 7.0 (4.5-7.5) Ur Specific [place] 1.013 (1.000-1.030) Urine Protein Negative (Negative) Urine Glucose (UA) Negative (Negative) Urine Ketones Negative (Negative) Urine Blood Negative (Negative) Urine Nitrite Negative (Negative) Urine Bilirubin Negative (Negative) Urine Urobilinogen Negative (Negative) Ur Leukocyte Esterase Negative (Negative) SARS-CoV-2 (PCR) POSITIVE A* (Negative) Influenza Type A (PCR) Negative (Neg) Influenza Type B (PCR) Negative (Neg) RSV (RT-PCR) Negative (Neg) 10/01/22 Range/Units 23:45 WBC (4.8-10.8) K/ul RBC (4.63-6.08) M/uL Hgb (14.0-18.0) g/dl Hct (40.1-51.0) % MCV (80.0-100.0) fL MCH (25.0-34.0) pg MCHC (32.0-36.0) g/dL RDW Std Deviation (36.4-46.3) fL RDW Coeff of Eliana (11.5-14.5) % Plt Count (130-400) K/uL MPV (9.4-12.4) fL Immature Gran % (Auto) % Neut % (Auto) % Lymph % (Auto) % [place] % (Auto) % Eos % (Auto) % Baso % (Auto) % Neut # (Auto) (1.4-6.5) K/uL Lymph # (Auto) (1.2-3.4) K/uL [place] # (Auto) (0.24-0.82) K/uL Eos # (Auto) (0-0.50) K/uL Baso # (Auto) (0-0.2) K/uL Immature Gran # (Auto) (0.00-0.02) K/uL Platelet Estimate (Normal) Sodium (136-145) mmol/L Potassium (3.5-5.1) mmol/L Chloride (98-107) mmol/L Carbon Dioxide (21-32) mmol/L Anion Gap (3-11) BUN (6-23) mg/dl Creatinine (0.6-1.4) mg/dl Est Cr Clr Drug Dosing ml/min Est GFR ( Amer) ml/min Est GFR (Non-Af Amer) ml/min BUN/Creatinine Ratio (10-20) Glucose (70-99(Fasting)) mg/dl POC Glucose 117 H (70-99) mg/dl Calcium (8.5-10.1) mg/dl Magnesium (1.7-2.4) mg/dl Total Bilirubin (0.2-1.0) mg/dl AST (13-39) U/L ALT (7-52) U/L Alkaline Phosphatase (34-104) U/L Troponin I High Sens (0-20) pg/ml B-Natriuretic Peptide (0-100) pg/ml Total Protein (6.0-8.3) gm/dl Albumin (3.4-5.0) gm/dl Globulin (2.5-4.0) gm/dl Albumin/Globulin Ratio (0.9-2) TSH (0.300-4.500) uIu/ml Urine Color Urine Appearance (Clear) Urine pH (4.5-7.5) Ur Specific [place] (1.000-1.030) Urine Protein (Negative) Urine Glucose (UA) (Negative) Urine Ketones (Negative) Urine Blood (Negative) Urine Nitrite (Negative) Urine Bilirubin (Negative) Urine Urobilinogen (Negative) Ur Leukocyte Esterase (Negative) SARS-CoV-2 (PCR) (Negative) Influenza Type A (PCR) (Neg) Influenza Type B (PCR) (Neg) RSV (RT-PCR) (Neg) Administered Medications Sodium Chloride (Nss 1000ml) 1,000 mls @ 60 mls/hr IV .[id number] Stop: 10/02/22 13:18 Last Admin: 10/01/22 21:12 Dose: 60 mls/hr Documented By: JOHN Discontinued Medications Albuterol (Albut/Ipratrop 3mg/0.5mg Neb 3 Ml Vial) 3 ml NEB NOW STA; Protocol Stop: 10/01/22 18:38 Last Admin: 10/01/22 19:40 Dose: 3 ml Documented By: JOHN Dexamethasone (Dexamethasone Sod Inj 4 Mg/Ml Vial) 6 mg IV ONE STA Stop: 10/01/22 23:21 Last Admin: 10/01/22 23:30 Dose: 6 mg Documented By: JOHN Insulin Glargine (Lantus Per Unit Charge) 5 units SQ NOW STA Stop: 10/01/22 23:12 Last Admin: 10/01/22 23:47 Dose: 5 units Documented By: JOHN Co-signed By: KAROLINA Imaging Data Radiologist's Impression: Chest X-Ray 10/01/22 18:36 SINGLE VIEW CHEST CLINICAL HISTORY: Weakness. Dyspnea. FINDINGS: 2 AP, portable, upright chest radiographs are compared to study dated 03/05/2022. The patient is status post midline sternotomy. The heart is enlarged noting atherosclerotic calcification of the thoracic aorta. The pulmonary vasculature is noncongested. Chronic interstitial thickening is similar to previous. There is bibasilar scarring/atelectasis. No airspace consolidation or large pleural effusion is identified. Calcified mediastinal lymph nodes are suggested. No pneumothorax is seen. The skeletal structures are osteopenic. The bony thorax is grossly intact. Degenerative change is noted in the shoulders. Superior subluxation of both humeral heads suggest chronic bilateral rotator cuff injury. IMPRESSION: Cardiomegaly with no acute cardiopulmonary abnormality identified. ACT 112: Negative or not required by law. Electronically signed by: Daniel Ellsworth M.D. 10/01/2022 8:51 PM Discharge Plan Visit Data Chief Complaint: Weakness ED Provider: Luis Fowler Discharge Problem: COVID-19, Weakness Patient Disposition: Being Evaluated by Hospitalist Forms Stand Alone Forms: [facility] Prescriptions Prescriptions: No Action potassium chloride 20 mEq tablet extended release 40 meq PO DAILY prochlorperazine maleate 5 mg tablet 5 - 10 mg PO Q8 PRN (Reason: Nausea) fluticasone propionate 50 mcg/actuation spray,suspension 2 spray INTRANASAL DAILY Rx Instructions: 2 sprays each nostril insulin glargine [Lantus Solostar U-100 Insulin] 100 unit/mL (3 mL) insulin pen 40 unit SUBCUT HS tamsulosin 0.4 mg capsule 0.4 mg PO DAILY insulin aspart U-100 [Novolog Flexpen U-100 Insulin] 100 unit/mL (3 mL) insulin pen 1 sliding scale dose SUBCUT TIDM Rx Instructions: siding scale dose 3 times a day with meals cyanocobalamin (vitamin B-12) 1,000 mcg Tablet 1,000 mcg PO DAILY finasteride 5 mg tablet 5 mg PO DAILY cetirizine 10 mg Tablet 10 mg PO DAILY furosemide 40 mg tablet 40 mg PO QAM aspirin-dipyridamole 25-200 mg capsule, ER multiphase 12 hr 1 cap PO DAILY trazodone 50 mg Tablet 50 mg PO HS metoprolol succinate 50 mg tablet extended release 24 hr 50 mg PO DAILY tramadol 50 mg tablet 50 mg PO BID PRN (Reason: Pain) pantoprazole 40 mg tablet,delayed release (DR/EC) 40 mg PO QAM simvastatin 20 mg tablet 20 mg PO HS albuterol sulfate 90 mcg/actuation HFA aerosol inhaler 2 puff INHALATION Q6 PRN (Reason: Shortness Of Breath Or Wheezing) cholecalciferol (vitamin D3) 1,250 mcg (50,000 unit) capsule 1,250 mcg PO WK PreserVision AREDS 7,160 unit- 113 mg-100 unit Tablet 1 tab PO QAM Anoro Ellipta 62.5-25 mcg/actuation blister with device 1 ea INHALATION DAILY Referrals Referrals: Rudy Yoon M.D. [Primary Care Provider] -
[2022-10-01 19:29] LABS: Basophils # (auto) 0.01 K/uL (0-0.2); Basophils % (auto) 0.1 %; Eosinophils # (auto) 0.01 K/uL (0-0.50); Eosinophils % (auto) 0.1 %; Hematocrit (blood only) 32.9 % (40.1-51.0); Hemoglobin 10.7 g/dl (14.0-18.0); Immature Granulocytes # (auto) 0.06 K/uL (0.00-0.02); Immature Granulocytes % (auto) 0.6 %; Lymphocytes % (auto) 4.1 %; Mean Corpuscular Hemoglobin 31.1 pg (25.0-34.0); Mean Corpuscular Hgb Conc 32.5 g/dL (32.0-36.0); Mean Corpuscular Volume 95.6 fL (80.0-100.0); Mean Platelet Volume 11.8 fL (9.4-12.4); Monocytes # (auto) 0.94 K/uL (0.24-0.82); Monocytes % (auto) 9.7 %; Neutrophils # (auto) 8.26 K/uL (1.4-6.5); Neutrophils % (auto) 85.4 %; Platelet Count 117 K/uL (130-400); Platelet Estimate Decreased (Normal); RDW Coefficient of Variation 13.8 % (11.5-14.5); RDW Standard Deviation 48.2 fL (36.4-46.3); Red Blood Count 3.44 M/uL (4.63-6.08); White Blood Count 9.68 K/ul (4.8-10.8)
[2022-10-01 19:34] LABS: Albumin Globulin Ratio 1.1 (0.9-2); Albumin Level 3.3 gm/dl (3.4-5.0); BUN Creatinine Ratio 15.9 (10-20); Bilirubin,Total 0.4 mg/dl (0.2-1.0); Calcium 8.2 mg/dl (8.5-10.1); Creatinine Clr Calc Pharmacy 59.5 ml/min; Est GFR (African American) 92.1 ml/min; Est GFR (Non-African American) 79.4 ml/min; Globulin 2.9 gm/dl (2.5-4.0); Magnesium 1.8 mg/dl (1.7-2.4); Potassium 4.4 mmol/L (3.5-5.1); Total Protein 6.2 gm/dl (6.0-8.3)
[2022-10-01 19:40] LABS: Influenza A virus by PCR Negative (Neg); Influenza B virus by PCR Negative (Neg); RSV by PCR Negative (Neg)
[2022-10-01 19:44] LABS: SARS CoV2 RNA(COVID-19) Ceph POSITIVE (Negative)
[2022-10-01] MEDS ORDERED: SODIUM CHLORIDE 0.9% 1000ML 1,000 ML IV ONE (20:39)
--- NOTE | 2022-10-01 20:52 | XRay Report ---
SINGLE VIEW CHEST CLINICAL HISTORY: Weakness. Dyspnea. FINDINGS: 2 AP, portable, upright chest radiographs are compared to study dated 03/05/2022. The patien t is status post midline sternotomy. The heart is enlarged noting atherosclerotic calcification of th e thoracic aorta. The pulmonary vasculature is noncongested. Chronic interstitial thickening is simil ar to previous. There is bibasilar scarring/atelectasis. No airspace consolidation or large pleural e ffusion is identified. Calcified mediastinal lymph nodes are suggested. No pneumothorax is seen. The skeletal structures are osteopenic. The bony thorax is grossly intact. Degenerative change is noted i n the shoulders. Superior subluxation of both humeral heads suggest chronic bilateral rotator cuff in jury. IMPRESSION: Cardiomegaly with no acute cardiopulmonary abnormality identified. ACT 112: Negative or not required by law. Electronically signed by: Daniel Ellsworth M.D. 10/01/2022 8:51 PM
[2022-10-01 22:23] LABS: Appearance Urine Clear (Clear); Bilirubin Urine Negative (Negative); Blood Urine Negative (Negative); Color Urine Yellow; Glucose Urine UA Negative (Negative); Ketones Urine Negative (Negative); Leukocyte Esterase Urine Negative (Negative); Nitrite Urine Negative (Negative); Protein Urine Negative (Negative); Specific Gravity Urine 1.013 (1.000-1.030); Urobilinogen Urine Negative (Negative)
[2022-10-01] MEDS ORDERED: dexAMETHasone 6 MG in SYRINGE 0 ML IV ONE (23:03)
--- NOTE | 2022-10-01 23:03 | History & Physical Report ---
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 Ms. James Huerta, contact #[phone]. Text document was generated using [employer] voice recognition software. It may contain grammatical or spelling errors. Kindly contact undersigned for clarification of any documentation item in qu estion. History of Present Illness Chief Complaint: Weakness, low oxygen as per records Primary Care Provider: Rudy Yoon M.D. History obtained from patient and records. 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 Last confinement February 2022 for right femoral neck fracture status post surgery. Patient feeling weak the last few days. Shortness of breath mostly on exertion. Cough symptoms productive of clear sputum. No chest pain. Sick COVID-19 contacts at home. Patient has not received COVID-19 vaccination. O2 sats of 80s upon EMS arrival at patient's home. Lowest O2 sats at the ER noted to be 92 on room air. DuoNeb administered at the ER. Medical History as above Surgical History : CABG, right inguinal hernia repair Family History : Heart disease Personal/Social history :Past tobacco/alcohol abuse, retired window glazier helper, lives with daughter Allergies Allergy/AdvReac Type Severity Reaction Status Date / Time Penicillins Allergy Intermediate RASH ALONE Verified 03/05/22 15:20 aspirin Allergy Unknown BUT Verified 03/05/22 15:20 PATIENT TAKES AGGRENOX AT HOME? Home Medications Medication Instructions Recorded Confirmed Type albuterol sulfate 90 mcg/actuation 2 puff inhalation Q6 PRN Shortness 03/05/22 10/01/22 History aerosol inhaler Of Breath Or Wheezing aspirin 25 mg-dipyridamole 200 mg 1 cap PO DAILY 03/05/22 10/01/22 History capsule,ext.release 12 hr multiphase cholecalciferol (vitamin D3) 1,250 1,250 mcg PO WK 03/05/22 10/01/22 History mcg (50,000 unit) capsule furosemide 40 mg tablet 40 mg PO QAM 03/05/22 10/01/22 History metoprolol succinate 50 mg 50 mg PO DAILY 03/05/22 10/01/22 History tablet,extended release 24 hr pantoprazole 40 mg tablet,delayed 40 mg PO QAM 03/05/22 10/01/22 History release simvastatin 20 mg tablet 20 mg PO HS 03/05/22 10/01/22 History tramadol 50 mg tablet 50 mg PO BID PRN Pain 03/05/22 10/01/22 History trazodone 50 mg tablet 50 mg PO HS 03/05/22 10/01/22 History umeclidinium 62.5 mcg-vilanterol 1 ea inhalation DAILY 03/05/22 10/01/22 History 25 mcg/actuation powdr for inhalation (Anoro Ellipta) vitamins A,C,X-olmb-gigkqn 2,148 1 tab PO QAM 03/05/22 10/01/22 History mcg-113 mg-45 mg-17.4 mg tablet (PreserVision AREDS) cetirizine 10 mg tablet 10 mg PO DAILY 10/01/22 10/01/22 History cyanocobalamin (vitamin B-12) 1,000 mcg PO DAILY 10/01/22 10/01/22 History 1,000 mcg tablet finasteride 5 mg tablet 5 mg PO DAILY 10/01/22 10/01/22 History fluticasone propionate 50 2 spray intranasal DAILY 10/01/22 10/01/22 History mcg/actuation nasal spray,suspension insulin aspart U-100 100 unit/mL 1 sliding scale dose subcut TIDM 10/01/22 10/01/22 History (3 mL) subcutaneous pen (Novolog Flexpen U-100 Insulin aspart) insulin glargine 100 unit/mL (3 40 unit subcut HS 10/01/22 10/01/22 History mL) subcutaneous pen (Lantus Solostar U-100 Insulin) potassium chloride 20 mEq 40 meq PO DAILY 10/01/22 10/01/22 History tablet,extended release prochlorperazine maleate 5 mg 5 - 10 mg PO Q8 PRN Nausea 10/01/22 10/01/22 History tablet tamsulosin 0.4 mg capsule 0.4 mg PO DAILY 10/01/22 10/01/22 History Past Med/Surg History Medical History COPD (chronic obstructive pulmonary disease) Coronary artery disease Diabetes High cholesterol Hypertension Surgical History S/P CABG (coronary artery bypass graft) Social History Smoking Status: Current every day smoker Cigarettes Per Day: 3 packs a day; Second Hand Exposure: Yes; Do You Dip or Chew Tobacco: Yes; Hx Alcohol Use: Yes Alcohol type: beer Hx Substance Use: No Preferred Language: Prydein[place] Communication Ability: Effective 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 Beliefs That Will Affect Care: None marital status: Current Living Situation: Family Current Living Situation Comment: lives with daughter Other Information That Helps Us Care for You: No Feels Safe at Home: Yes Safety Concerns: Feels Safe At This Time Assistive Devices: Walker Review of Systems Review of Systems: As per HPI, all other systems reviewed and negative Physical Exam Physical Exam: GENERAL: Comfortable, pleasant, no respiratory distress SKIN: Pallor, warm HEENT: Pale palpebral conjunctivae, no ptosis, dry buccal mucosa NECK : Supple, no tenderness CHEST : CTA, no tenderness HEART : RRR, systolic murmur best heard over left sternal border ABDOMEN: Some distention, nontender EXTREMITIES : Minimal LE swelling, no LE tenderness, no other conspicuous deformities noted NEUROLOGIC : Coherent, visual activity not tested, no facial asymmetry, gait and stance not assessed Results & Data Results & Data ([facility]) Vital Signs (Past 12 Hours) Vital Signs Temp Pulse Pulse Resp BP BP Pulse Ox 10/01/22 22:53 69 20 121/42 L 94 10/01/22 21:00 73 18 114/74 92 10/01/22 19:37 71 20 127/55 L 94 10/01/22 18:38 10/01/22 18:38 10/01/22 18:38 37.4 C 79 16 133/68 94 O2 Del Method 10/01/22 22:53 Room Air 10/01/22 21:00 Room Air 10/01/22 19:37 Room Air 10/01/22 18:38 Room Air 10/01/22 18:38 Room Air 10/01/22 18:38 Room Air Laboratory Results Laboratory Results WBC 9.68 K/ul (4.8-10.8) 10/01/22 18:45 RBC 3.44 M/uL (4.63-6.08) L 10/01/22 18:45 Hgb 10.7 g/dl (14.0-18.0) L 10/01/22 18:45 Hct 32.9 % (40.1-51.0) L 10/01/22 18:45 MCV 95.6 fL (80.0-100.0) 10/01/22 18:45 MCH 31.1 pg (25.0-34.0) 10/01/22 18:45 MCHC 32.5 g/dL (32.0-36.0) 10/01/22 18:45 RDW Std Deviation 48.2 fL (36.4-46.3) H 10/01/22 18:45 RDW Coeff of [place]iana 13.8 % (11.5-14.5) 10/01/22 18:45 Plt Count 117 K/uL (130-400) L 10/01/22 18:45 MPV 11.8 fL (9.4-12.4) 10/01/22 18:45 Immature Gran % (Auto) 0.6 % 10/01/22 18:45 Neut % (Auto) 85.4 % 10/01/22 18:45 Lymph % (Auto) 4.1 % 10/01/22 18:45 [place] % (Auto) 9.7 % 10/01/22 18:45 Eos % (Auto) 0.1 % 10/01/22 18:45 Baso % (Auto) 0.1 % 10/01/22 18:45 Neut # (Auto) 8.26 K/uL (1.4-6.5) H 10/01/22 18:45 Lymph # (Auto) 0.40 K/uL (1.2-3.4) L 10/01/22 18:45 [place] # (Auto) 0.94 K/uL (0.24-0.82) H 10/01/22 18:45 Eos # (Auto) 0.01 K/uL (0-0.50) 10/01/22 18:45 Baso # (Auto) 0.01 K/uL (0-0.2) 10/01/22 18:45 Immature Gran # (Auto) 0.06 K/uL (0.00-0.02) H 10/01/22 18:45 Platelet Estimate Decreased (Normal) L 10/01/22 18:45 Sodium 134 mmol/L (136-145) L 10/01/22 18:45 Potassium 4.4 mmol/L (3.5-5.1) 10/01/22 18:45 Chloride 101 mmol/L (98-107) 10/01/22 18:45 Carbon Dioxide 28 mmol/L (21-32) 10/01/22 18:45 Anion Gap 5 (3-11) 10/01/22 18:45 BUN 14 mg/dl (6-23) 10/01/22 18:45 Creatinine 0.88 mg/dl (0.6-1.4) 10/01/22 18:45 Est Cr Clr Drug Dosing 59.5 ml/min 10/01/22 18:45 Est GFR ( Amer) 92.1 ml/min 10/01/22 18:45 Est GFR (Non-Af Amer) 79.4 ml/min 10/01/22 18:45 BUN/Creatinine Ratio 15.9 (10-20) 10/01/22 18:45 Glucose 144 mg/dl (70-99(Fasting)) H 10/01/22 18:45 Calcium 8.2 mg/dl (8.5-10.1) L 10/01/22 18:45 Magnesium 1.8 mg/dl (1.7-2.4) 10/01/22 18:45 Total Bilirubin 0.4 mg/dl (0.2-1.0) 10/01/22 18:45 AST 33 U/L (13-39) 10/01/22 18:45 ALT 21 U/L (7-52) 10/01/22 18:45 Alkaline Phosphatase 123 U/L (34-104) H 10/01/22 18:45 Troponin I High Sens 12.0 pg/ml (0-20) 10/01/22 18:45 B-Natriuretic Peptide 235 pg/ml (0-100) H 10/01/22 18:45 Total Protein 6.2 gm/dl (6.0-8.3) 10/01/22 18:45 Albumin 3.3 gm/dl (3.4-5.0) L 10/01/22 18:45 Globulin 2.9 gm/dl (2.5-4.0) 10/01/22 18:45 Albumin/Globulin Ratio 1.1 (0.9-2) 10/01/22 18:45 TSH 0.759 uIu/ml (0.300-4.500) 10/01/22 18:45 Urine Color Yellow 10/01/22 22:08 Urine Appearance Clear (Clear) 10/01/22 22:08 Urine pH 7.0 (4.5-7.5) 10/01/22 22:08 Ur Specific [place] 1.013 (1.000-1.030) 10/01/22 22:08 Urine Protein Negative (Negative) 10/01/22 22:08 Urine Glucose (UA) Negative (Negative) 10/01/22 22:08 Urine Ketones Negative (Negative) 10/01/22 22:08 Urine Blood Negative (Negative) 10/01/22 22:08 Urine Nitrite Negative (Negative) 10/01/22 22:08 Urine Bilirubin Negative (Negative) 10/01/22 22:08 Urine Urobilinogen Negative (Negative) 10/01/22 22:08 Ur Leukocyte Esterase Negative (Negative) 10/01/22 22:08 SARS-CoV-2 (PCR) POSITIVE (Negative) A* 10/01/22 18:45 Influenza Type A (PCR) Negative (Neg) 10/01/22 18:45 Influenza Type B (PCR) Negative (Neg) 10/01/22 18:45 RSV (RT-PCR) Negative (Neg) 10/01/22 18:45 Impressions Chest X-Ray 10/01/22 18:36 SINGLE VIEW CHEST CLINICAL HISTORY: Weakness. Dyspnea. FINDINGS: 2 AP, portable, upright chest radiographs are compared to study dated 03/05/2022. The patient is status post midline sternotomy. The heart is enlarged noting atherosclerotic calcification of the thoracic aorta. The pulmonary vasculature is noncongested. Chronic interstitial thickening is similar to previous. There is bibasilar scarring/atelectasis. No airspace consolidation or large pleural effusion is identified. Calcified mediastinal lymph nodes are suggested. No pneumothorax is seen. The skeletal structures are osteopenic. The bony thorax is grossly intact. Degenerative change is noted in the shoulders. Superior subluxation of both humeral heads suggest chronic bilateral rotator cuff injury. IMPRESSION: Cardiomegaly with no acute cardiopulmonary abnormality identified. ACT 112: Negative or not required by law. Electronically signed by: Daniel Ellsworth M.D. 10/01/2022 8:51 PM Diagnostic Findings EKG as per my interpretation : Rate 75, NSR, LAD, LAFB, RBBB, no ischemia
[2022-10-01] MEDS ORDERED: LANTUS PER UNIT CHARGE SQ STA (23:11)
[2022-10-01] MEDS ORDERED: DEXAMETHASONE SOD INJ 4 MG/ML VIAL IV STA (23:20)
[2022-10-02] MEDS ORDERED: traMADol HCL 50 MG TABLET PO PRN (00:52)
[2022-10-02] MEDS ORDERED: ACETAMINOPHEN 325 MG TAB PO PRN (00:52)
[2022-10-02] MEDS ORDERED: GLUCOSE 10 TAB/TUBE PO PRN (00:52)
[2022-10-02] MEDS ORDERED: PROMETHAZINE HCL 6.25 MG in SODIUM CHLORIDE 0.9% 50 ML IV PRN (00:52)
[2022-10-02] MEDS ORDERED: CARBOHYDRATES FOR HYPOGLYCEMIA PO PRN (00:52)
[2022-10-02] MEDS ORDERED: GLUCOSE 40% GEL 15 GM TUBE PO PRN (00:52)
[2022-10-02] MEDS ORDERED: DEXTROSE 50% 50 ML SYRINGE IV PRN (00:52)
[2022-10-02] MEDS ORDERED: GLUCAGON FOR INJ 1 MG VIAL SQ PRN (00:52)
[2022-10-02] MEDS ORDERED: ALBUTEROL HFA 8 GM INHALER INH SCH (07:00)
[2022-10-02] MEDS ORDERED: dexAMETHasone 6 MG in SYRINGE 0 ML IV SCH (09:00)
[2022-10-02] MEDS ORDERED: LANTUS PER UNIT CHARGE SQ SCH ×2 (09:00→16:45)
[2022-10-02] MEDS: INSULIN ASPART PER UNIT SC SCH ×4 (09:12→21:14)
[2022-10-02] MEDS: CYANOCOBALAMIN (B-12) 500 MCG TABLET PO SCH (09:19)
[2022-10-02] MEDS: CETIRIZINE HCL 10 MG TABLET PO SCH (09:20)
[2022-10-02] MEDS: CEROVITE ADV FORMULA TAB PO SCH (09:20)
[2022-10-02] MEDS: DIPYRIDAMOLE/ASPIRIN CAP PO SCH (09:20)
[2022-10-02] MEDS: ENOXAPARIN INJ 40 MG/0.4 ML SYR SQ SCH (09:20)
[2022-10-02] MEDS: FINASTERIDE 5 MG TAB PO SCH (09:20)
[2022-10-02] MEDS: PANTOprazole 40 MG TAB PO SCH (09:20)
[2022-10-02] MEDS: TAMSULOSIN HCL 0.4 MG CAP PO SCH (09:20)
[2022-10-02] MEDS: METOPROLOL SUCC 50MG EXT REL TAB PO SCH (09:20)
[2022-10-02] MEDS: UMECLIDINIUM/VILANTEROL 62.5/25MCG 7 PUFFS/INHALER INH SCH (09:21)
[2022-10-02] MEDS: FLUTICASONE PROPIONATE NA SPR 16 GM BTL SCH (09:21)
[2022-10-02] MEDS ORDERED: ALBUTEROL HFA 8 GM INHALER INH PRN (10:12)
[2022-10-02 10:37] LABS: Hematocrit (blood only) 32.9 % (40.1-51.0); Hemoglobin 10.6 g/dl (14.0-18.0); Mean Corpuscular Hgb Conc 32.2 g/dL (32.0-36.0); Mean Corpuscular Volume 96.2 fL (80.0-100.0); Mean Platelet Volume 11.8 fL (9.4-12.4); Platelet Count 99 K/uL (130-400); RDW Coefficient of Variation 13.7 % (11.5-14.5); RDW Standard Deviation 49.1 fL (36.4-46.3); Red Blood Count 3.42 M/uL (4.63-6.08); White Blood Count 5.71 K/ul (4.8-10.8)
[2022-10-02 10:54] LABS: Basophils # (auto) 0.01 K/uL (0-0.2); Basophils % (auto) 0.2 %; Immature Granulocytes # (auto) 0.02 K/uL (0.00-0.02); Immature Granulocytes % (auto) 0.4 %; Lymphocytes # (auto) 0.28 K/uL (1.2-3.4); Lymphocytes % (auto) 4.9 %; Monocytes # (auto) 0.28 K/uL (0.24-0.82); Monocytes % (auto) 4.9 %; Neutrophils # (auto) 5.12 K/uL (1.4-6.5); Neutrophils % (auto) 89.6 %
[2022-10-02 11:22] LABS: BUN Creatinine Ratio 17.9 (10-20); Calcium 8.1 mg/dl (8.5-10.1); Creatinine Clr Calc Pharmacy 51.6 ml/min; Est GFR (African American) 85.5 ml/min; Est GFR (Non-African American) 73.7 ml/min; Potassium 4.8 mmol/L (3.5-5.1)
--- NOTE | 2022-10-02 13:25 | Hospitalist Progress Note ---
Date of Service October 02, 2022 Assessment & Plan (1) Hypoxemia: Plan: resolved, stop decadron to avoid unwanted hyperglycemia. cont isolation precautions for covid-19. No wheezing present. Will cont to monitor off steroids and if he gets worse will consider adding them back. (2) Weakness: Plan: Worsened possibly 2/2 covid. PT/OT ordered. (3) Diabetes: Plan: chronic, controlled but concerned this may rise given small amount of insulin coverage and steroids. Was 275 this morning already and his diet is being advanced to regular food. Will tighten basal bolus insulin at this time. Overnight check to ensure this isn't too much for him. (4) COPD (chronic obstructive pulmonary disease): Plan: Chronic, no wheezing on exam and no oxygen needs. Likely not in exacerbation at this time. Cont supportive care. (5) Coronary artery disease: Plan: chronic, controlled. Cont medical management. (6) Anemia: Plan: Chronic, at baseline. Cont to monitor. DVT proph: Lovenox DNR/DNI Dispo-pending PT/OT recommendations. Appreciate CM assistance. Currently lives at home with his daughter who cares for him. Janell Dillard DO [facility] Hospitalist Admission and Anticipated Discharge Date Admission Date: October 01, 2022 Subjective 82 yo M presents with hypoxia possibly related to covid-19 vs COPD exacerbation. he denies any SOB he has received two doses of decadron and hypoxia is resolved he denies any cough, fever, or chills states he just became weak yesterday and was feeling great on Monday hungry and asking to eat. Review of Systems Review of Systems: All systems were reviewed and negative except as indicated on subjective above. Physical Exam Physical Exam: CONSTITUTIONAL: WNWD, vitals as above, generally well- appearing, NAD EYES: normal conjunctivae, no scleral icterus ENT: external ear and nose normal, MMM NECK: trachea midline RESPIRATORY: clear to auscultation bilaterally, no crackles, rales or wheezes CARDIOVASCULAR: regular rate and rhythm, S1 and 2 heard without murmurs, gallops or rubs, no JVD, no peripheral edema CHEST: inspection of chest was normal GASTROINTESTINAL: soft, nontender, no guarding, nondistended. MUSCULOSKELETAL: generalized weakness, cannot sit up independently, head is normocephalic and atraumatic, SKIN: warm and dry NEUROLOGIC: CN 2-12 grossly intact, no sensory deficit, normal cognition, normal speech, no tremor PSYCHIATRIC: alert cooperative and oriented to person, place and time. Euthymic mood, makes good eye contact, language grossly intact, recent and remote memory grossly intact. Results & Data Results & Data ([facility]) Vital Signs (Past 12 Hours) Vital Signs Temp Pulse Resp BP Pulse Ox O2 Del Method 10/02/22 09:39 Room Air 10/02/22 09:00 Room Air 10/02/22 07:52 68 16 95 Room Air 10/02/22 07:37 36.5 C 78 16 117/58 L 97 Room Air 10/02/22 02:02 Room Air 10/02/22 02:02 37.0 C 80 18 148/63 H 96 Room Air Laboratory Results Short CBC 10/01/22 10/02/22 Range/Units 18:45 10:06 WBC 9.68 5.71 (4.8-10.8) K/ul Hgb 10.7 L 10.6 L (14.0-18.0) g/dl Hct 32.9 L 32.9 L (40.1-51.0) % Plt Count 117 L 99 L (130-400) K/uL BMP 10/01/22 10/02/22 18:45 10:06 Sodium 134 L 133 L Potassium 4.4 4.8 Chloride 101 99 Carbon Dioxide 28 29 BUN 14 17 Creatinine 0.88 0.95 Glucose 144 H 275 H Calcium 8.2 L 8.1 L Liver Function 10/01/22 Range/Units 18:45 Total Bilirubin 0.4 (0.2-1.0) mg/dl AST 33 (13-39) U/L ALT 21 (7-52) U/L Alkaline Phosphatase 123 H (34-104) U/L Albumin 3.3 L (3.4-5.0) gm/dl Urine 10/01/22 Range/Units 22:08 Urine Color Yellow Urine Appearance Clear (Clear) Urine pH 7.0 (4.5-7.5) Ur Specific [place] 1.013 (1.000-1.030) Urine Protein Negative (Negative) Urine Glucose (UA) Negative (Negative) Medications Administered Current Inpatient Medications Acetaminophen (Acetaminophen 325 Mg Tab) 650 mg PO Q4H PRN PRN Reason: pain/fever Stop: 11/01/22 00:51 Albuterol (Albuterol Hfa 8 Gm Inhaler) 2 puffs INH BIDR PRN PRN Reason: Wheezing Stop: 11/01/22 18:59 Cetirizine HCl (Cetirizine Hcl 10 Mg Tablet) 10 mg PO DAILY ANGELA Stop: 11/01/22 08:59 Last Admin: 10/02/22 09:20 Dose: 10 mg Cyanocobalamin (Cyanocobalamin (B-12) 500 Mcg Tablet) 1,000 mcg PO DAILY ANGELA Stop: 11/01/22 08:59 Last Admin: 10/02/22 09:19 Dose: 1,000 mcg Dextrose (Dextrose 50% 50 Ml Syringe) 25 - 50 ml IV UD PRN; Protocol PRN Reason: Hypoglycemia Protocol Stop: 11/01/22 00:51 Dipyridamole/Aspirin (Dipyridamole/Aspirin Cap) 1 cap PO DAILY [facility] Stop: 11/01/22 08:59 Last Admin: 10/02/22 09:20 Dose: 1 cap Enoxaparin Sodium (Enoxaparin Inj 40 Mg/0.4 Ml Syr) 40 mg SQ QAM ANGELA Stop: 11/01/22 08:59 Last Admin: 10/02/22 09:20 Dose: 40 mg Finasteride (Finasteride 5 Mg Tab) 5 mg PO DAILY [facility] Stop: 11/01/22 08:59 Last Admin: 10/02/22 09:20 Dose: 5 mg Fluticasone Propionate (Fluticasone Propionate Na Spr 16 Gm Btl) 2 sprays NA DAILY ANGELA Stop: 11/01/22 08:59 Last Admin: 10/02/22 09:21 Dose: 2 sprays Glucagon (Glucagon For Inj 1 Mg Vial) 1 mg SQ UD PRN; Protocol PRN Reason: Hypoglycemia Protocol Stop: 11/01/22 00:51 Glucose (Glucose 40% Gel 15 Gm Tube) 15 - 30 gm PO UD PRN; Protocol PRN Reason: Hypoglycemia Protocol Stop: 11/01/22 00:51 Glucose (Glucose 10 Tab/Tube) 4 - 8 tab PO UD PRN; Protocol PRN Reason: Hypoglycemia Treatment Stop: 11/01/22 00:51 Promethazine HCl 6.25 mg/ (Sodium Chloride) 50.25 mls @ 201 mls/hr IV Q6H PRN PRN Reason: Nausea And Vomiting Stop: 11/01/22 00:51 Dexamethasone 6 mg/ Syringe 1.5 mls @ 1 mls/min IV DAILY [facility] Stop: 11/01/22 08:59 Last Admin: 10/02/22 09:20 Dose: 1 mls/min Insulin Aspart (Insulin Aspart Per Unit) 0 units SC ACHS ANGELA Stop: 11/01/22 07:29 Last Admin: 10/02/22 13:11 Dose: 8 units Insulin Glargine (Lantus Per Unit Charge) 5 units SQ BID ANGELA Stop: 11/01/22 08:59 Last Admin: 10/02/22 09:13 Dose: 5 units Metoprolol Succinate (Metoprolol Succ 50mg Ext Rel Tab) 50 mg PO DAILY [facility] Stop: 11/01/22 08:59 Last Admin: 10/02/22 09:20 Dose: 50 mg Miscellaneous (Carbohydrates For Hypoglycemia ) 15 - 30 gm PO UD PRN PRN Reason: Hypoglycemia Protocol Stop: 11/01/22 00:51 Multivitamins/Minerals (Cerovite Adv Formula Tab) 1 tab PO QAM [facility] Stop: 11/01/22 08:59 Last Admin: 10/02/22 09:20 Dose: 1 tab Pantoprazole Sodium (Pantoprazole 40 Mg Tab) 40 mg PO QAM [facility] Stop: 11/01/22 08:59 Last Admin: 10/02/22 09:20 Dose: 40 mg Simvastatin (Simvastatin 20 Mg Tab) 20 mg PO HS [facility] Stop: 11/01/22 20:59 Tamsulosin HCl (Tamsulosin Hcl 0.4 Mg Cap) 0.4 mg PO DAILY [facility] Stop: 11/01/22 08:59 Last Admin: 10/02/22 09:20 Dose: 0.4 mg Tramadol HCl (Tramadol Hcl 50 Mg Tablet) 50 mg PO BID PRN PRN Reason: Pain Stop: 11/01/22 00:51 Trazodone HCl (Trazodone Hcl 50 Mg Tab) 50 mg PO HS [facility] Stop: 11/01/22 20:59 Umeclidinium/Vilanterol (Umeclidinium/Vilanterol 62.5/25mcg 7 Puffs/Inhaler) 1 puffs INH DAILY [facility] Stop: 11/01/22 08:59 Last Admin: 10/02/22 09:21 Dose: 1 puffs
[2022-10-02] MEDS: traZODone HCL 50 MG TAB PO SCH (21:35)
[2022-10-02] MEDS: SIMVASTATIN 20 MG TAB PO SCH (21:35)
[2022-10-03] MEDS ORDERED: INSULIN ASPART PER UNIT SC ONE (01:00)
--- NOTE | 2022-10-03 05:36 | Electrocardiogram Report ---
Test Reason : Blood Pressure : / mmHG Vent. Rate : 076 BPM Atrial Rate : 076 BPM P-R Int : 166 ms QRS Dur : 130 ms QT Int : 418 ms P-R-T Axes : 084 -25 039 degrees QTc Int : 470 ms Normal sinus rhythm Right bundle branch block Abnormal ECG When compared with ECG of 05-MAR-2022 11:36, No significant change was found Confirmed by Klaus Arriaga ([id number]) on 10/03/2022 5:36:10 AM Referred By: REFERRED SELF Confirmed By:Klaus Ariraga
[2022-10-03 07:14] LABS: Estimated Average Glucose 126 mg/dl
[2022-10-03] MEDS: CYANOCOBALAMIN (B-12) 500 MCG TABLET PO SCH (07:34)
[2022-10-03] MEDS: CEROVITE ADV FORMULA TAB PO SCH (07:35)
[2022-10-03] MEDS: METOPROLOL SUCC 50MG EXT REL TAB PO SCH (07:35)
[2022-10-03] MEDS: DIPYRIDAMOLE/ASPIRIN CAP PO SCH (07:35)
[2022-10-03] MEDS: TAMSULOSIN HCL 0.4 MG CAP PO SCH (07:35)
[2022-10-03] MEDS: PANTOprazole 40 MG TAB PO SCH (07:35)
[2022-10-03] MEDS: FINASTERIDE 5 MG TAB PO SCH (07:35)
[2022-10-03] MEDS: CETIRIZINE HCL 10 MG TABLET PO SCH (07:35)
[2022-10-03] MEDS: ENOXAPARIN INJ 40 MG/0.4 ML SYR SQ SCH (07:36)
[2022-10-03] MEDS: FLUTICASONE PROPIONATE NA SPR 16 GM BTL SCH (07:38)
[2022-10-03] MEDS: UMECLIDINIUM/VILANTEROL 62.5/25MCG 7 PUFFS/INHALER INH SCH (07:39)
[2022-10-03] MEDS: INSULIN ASPART PER UNIT SC SCH ×3 (08:43→19:50)
[2022-10-03 10:08] LABS: Hematocrit (blood only) 33.9 % (40.1-51.0); Hemoglobin 11.2 g/dl (14.0-18.0); Mean Corpuscular Hemoglobin 30.9 pg (25.0-34.0); Mean Corpuscular Volume 93.4 fL (80.0-100.0); Mean Platelet Volume 12.1 fL (9.4-12.4); Platelet Count 141 K/uL (130-400); RDW Coefficient of Variation 13.4 % (11.5-14.5); RDW Standard Deviation 46.5 fL (36.4-46.3); Red Blood Count 3.63 M/uL (4.63-6.08); White Blood Count 12.78 K/ul (4.8-10.8)
[2022-10-03 10:40] LABS: Est GFR (African American) 85.5 ml/min; Est GFR (Non-African American) 73.7 ml/min; Potassium 4.2 mmol/L (3.5-5.1)
[2022-10-03 10:41] LABS: BUN Creatinine Ratio 23.2 (10-20); Calcium 9.2 mg/dl (8.5-10.1); Creatinine Clr Calc Pharmacy 51.6 ml/min; Magnesium 2.1 mg/dl (1.7-2.4); Phosphorus 2.2 mg/dl (2.5-4.9)
--- NOTE | 2022-10-03 16:45 | Hospitalist Progress Note ---
Date of Service October 03, 2022 Assessment & Plan (1) Hypoxemia: Plan: resolved, stopped decadron to avoid unwanted hyperglycemia. cont isolation precautions for covid-19. No wheezing present. Will cont to monitor off steroids. Nebulized bronchodilators as needed. He appears asymptomatic today. (2) Weakness: Plan: Worsened possibly 2/2 covid. PT/OT ordered. He displayed some deficits with bed mobility, transfers, ambulation, balance and overall mobility. It is recommended that he continue with acute care PT while at [facility] progressing as per his tolerance. With his mental state he would definitely require 24/7 supervision with some assistance or possibly even a SNF/rehab stay upon discharge. We will continue to follow. Notably the family brought in his left foot/ankle brace which may help his mobility. (3) Diabetes: Plan: Daughter reports hypoglycemia episodes at home on his home insulin regimen. He typically takes glargine 40 units every evening and a sliding scale of NovoLog with meals. Overnight he became hypoglycemic and glargine and NovoLog were held. Loose correction factor and carb coverage were readded again today at lunch with NovoLog only and will continue to hold glargine and monitor BSG. May need to modify insulin regimen at discharge, based on new needs. (4) COPD (chronic obstructive pulmonary disease): Plan: Chronic, no wheezing on exam and no oxygen needs. Likely not in exacerbation at this time. Cont supportive care. (5) Coronary artery disease: Plan: chronic, controlled. Cont medical management. (6) Anemia: Plan: Chronic, at baseline. Cont to monitor. DVT proph: Lovenox DNR/DNI Dispo- SNF recommended, appreciate case management assistance. Janell Dillard DO [facility] Hospitalist Admission and Anticipated Discharge Date Admission Date: October 01, 2022 Subjective 82 yo M presents with hypoxia possibly related to covid-19 vs COPD exacerbation. he denies any SOB No issues with hypoxia in the last 36 hours. he denies any cough, fever, or chills Still remains very weak and is now intermittently delirious. Daughter is at bedside and confirms that he gets hospital delirium from changing environments frequently Review of Systems Review of Systems: All systems were reviewed and negative except as indicated on subjective above. Physical Exam Physical Exam: CONSTITUTIONAL: WNWD, vitals as above, no acute distress EYES: normal conjunctivae, no scleral icterus ENT: external ear and nose normal, MMM NECK: trachea midline RESPIRATORY: clear to auscultation bilaterally, no crackles, rales or wheezes CARDIOVASCULAR: regular rate and rhythm, S1 and 2 heard without murmurs, gallops or rubs, no JVD, no peripheral edema CHEST: inspection of chest was normal GASTROINTESTINAL: soft, nontender, no guarding, nondistended. MUSCULOSKELETAL: generalized weakness, head is normocephalic and atraumatic, SKIN: warm and dry NEUROLOGIC: CN 2-12 grossly intact, no sensory deficit, normal cognition, normal speech, no tremor PSYCHIATRIC: Somewhat confused although he is able to follow instructions and answer some questions. Results & Data Results & Data ([facility]) Vital Signs (Past 12 Hours) Vital Signs Temp Pulse Resp BP Pulse Ox O2 Del Method 10/03/22 08:38 36.5 C 60 17 161/72 H 96 Room Air 10/03/22 07:54 Room Air Laboratory Results Short CBC 10/03/22 Range/Units 09:56 WBC 12.78 H (4.8-10.8) K/ul Hgb 11.2 L (14.0-18.0) g/dl Hct 33.9 L (40.1-51.0) % Plt Count 141 (130-400) K/uL BMP 10/03/22 09:56 Sodium 136 Potassium 4.2 Chloride 101 Carbon Dioxide 30 BUN 22 Creatinine 0.95 Glucose 210 H Calcium 9.2 Medications Administered Current Inpatient Medications Acetaminophen (Acetaminophen 325 Mg Tab) 650 mg PO Q4H PRN PRN Reason: pain/fever Stop: 11/01/22 00:51 Albuterol (Albuterol Hfa 8 Gm Inhaler) 2 puffs INH BIDR PRN PRN Reason: Wheezing Stop: 11/01/22 18:59 Cetirizine HCl (Cetirizine Hcl 10 Mg Tablet) 10 mg PO DAILY ANGELA Stop: 11/01/22 08:59 Last Admin: 10/03/22 07:35 Dose: 10 mg Cyanocobalamin (Cyanocobalamin (B-12) 500 Mcg Tablet) 1,000 mcg PO DAILY ANGELA Stop: 11/01/22 08:59 Last Admin: 10/03/22 07:34 Dose: 1,000 mcg Dextrose (Dextrose 50% 50 Ml Syringe) 25 - 50 ml IV UD PRN; Protocol PRN Reason: Hypoglycemia Protocol Stop: 11/01/22 00:51 Dipyridamole/Aspirin (Dipyridamole/Aspirin Cap) 1 cap PO DAILY COUNT INCLUDES [facility] Stop: 11/01/22 08:59 Last Admin: 10/03/22 07:35 Dose: 1 cap Enoxaparin Sodium (Enoxaparin Inj 40 Mg/0.4 Ml Syr) 40 mg SQ QAM ANGELA Stop: 11/01/22 08:59 Last Admin: 10/03/22 07:36 Dose: 40 mg Finasteride (Finasteride 5 Mg Tab) 5 mg PO DAILY ANGELA Stop: 11/01/22 08:59 Last Admin: 10/03/22 07:35 Dose: 5 mg Fluticasone Propionate (Fluticasone Propionate Na Spr 16 Gm Btl) 2 sprays NA DAILY COUNT INCLUDES [facility] Stop: 11/01/22 08:59 Last Admin: 10/03/22 07:38 Dose: 2 sprays Glucagon (Glucagon For Inj 1 Mg Vial) 1 mg SQ UD PRN; Protocol PRN Reason: Hypoglycemia Protocol Stop: 11/01/22 00:51 Glucose (Glucose 40% Gel 15 Gm Tube) 15 - 30 gm PO UD PRN; Protocol PRN Reason: Hypoglycemia Protocol Stop: 11/01/22 00:51 Glucose (Glucose 10 Tab/Tube) 4 - 8 tab PO UD PRN; Protocol PRN Reason: Hypoglycemia Treatment Stop: 11/01/22 00:51 Promethazine HCl 6.25 mg/ (Sodium Chloride) 50.25 mls @ 201 mls/hr IV Q6H PRN PRN Reason: Nausea And Vomiting Stop: 11/01/22 00:51 Dexamethasone 6 mg/ Syringe 1.5 mls @ 1 mls/min IV DAILY ANGELA Stop: 11/01/22 08:59 Last Admin: 10/02/22 09:20 Dose: 1 mls/min Insulin Aspart (Insulin Aspart Per Unit) 0 units SC ACHS COUNT INCLUDES [facility] Stop: 11/01/22 07:29 Last Admin: 10/03/22 08:43 Dose: Not Given Insulin Glargine (Lantus Per Unit Charge) 15 units SQ BID COUNT INCLUDES [facility] Stop: 11/01/22 16:44 Last Admin: 10/02/22 17:59 Dose: 15 units Metoprolol Succinate (Metoprolol Succ 50mg Ext Rel Tab) 50 mg PO DAILY ANGELA Stop: 11/01/22 08:59 Last Admin: 10/03/22 07:35 Dose: 50 mg Miscellaneous (Carbohydrates For Hypoglycemia ) 15 - 30 gm PO UD PRN PRN Reason: Hypoglycemia Protocol Stop: 11/01/22 00:51 Multivitamins/Minerals (Cerovite Adv Formula Tab) 1 tab PO QAM ANGELA Stop: 11/01/22 08:59 Last Admin: 10/03/22 07:35 Dose: 1 tab Pantoprazole Sodium (Pantoprazole 40 Mg Tab) 40 mg PO QAM ANGELA Stop: 11/01/22 08:59 Last Admin: 10/03/22 07:35 Dose: 40 mg Simvastatin (Simvastatin 20 Mg Tab) 20 mg PO HS COUNT INCLUDES [facility] Stop: 11/01/22 20:59 Last Admin: 10/02/22 21:35 Dose: 20 mg Tamsulosin HCl (Tamsulosin Hcl 0.4 Mg Cap) 0.4 mg PO DAILY ANGELA Stop: 11/01/22 08:59 Last Admin: 10/03/22 07:35 Dose: 0.4 mg Tramadol HCl (Tramadol Hcl 50 Mg Tablet) 50 mg PO BID PRN PRN Reason: Pain Stop: 11/01/22 00:51 Trazodone HCl (Trazodone Hcl 50 Mg Tab) 50 mg PO HS ANGELA Stop: 11/01/22 20:59 Last Admin: 10/02/22 21:35 Dose: 50 mg Umeclidinium/Vilanterol (Umeclidinium/Vilanterol 62.5/25mcg 7 Puffs/Inhaler) 1 puffs INH DAILY ANGELA Stop: 11/01/22 08:59 Last Admin: 10/03/22 07:39 Dose: 1 puffs
[2022-10-03] MEDS: SIMVASTATIN 20 MG TAB PO SCH (19:38)
[2022-10-03] MEDS: traZODone HCL 50 MG TAB PO SCH (19:38)
[2022-10-03] MEDS ORDERED: OLANZapine 10 MG/2.1 ML SDV IM PRN (20:27)
[2022-10-03] MEDS ORDERED: SODIUM CHLORIDE 0.9% 1000ML 1,000 ML IV ONE (20:28)
[2022-10-03] MEDS ORDERED: LANTUS PER UNIT CHARGE SQ SCH (21:00)
[2022-10-04] MEDS: INSULIN ASPART PER UNIT SC SCH ×4 (08:56→20:29)
[2022-10-04] MEDS: ENOXAPARIN INJ 40 MG/0.4 ML SYR SQ SCH (08:56)
[2022-10-04 11:05] LABS: BUN Creatinine Ratio 21.4 (10-20); Calcium 8.2 mg/dl (8.5-10.1); Creatinine Clr Calc Pharmacy 58.3 ml/min; Est GFR (African American) 93.8 ml/min; Potassium 3.9 mmol/L (3.5-5.1)
[2022-10-04 11:06] LABS: Hematocrit (blood only) 35.6 % (40.1-51.0); Hemoglobin 11.7 g/dl (14.0-18.0); Mean Corpuscular Hemoglobin 30.5 pg (25.0-34.0); Mean Corpuscular Hgb Conc 32.9 g/dL (32.0-36.0); Mean Platelet Volume 11.7 fL (9.4-12.4); Platelet Count 117 K/uL (130-400); RDW Coefficient of Variation 13.6 % (11.5-14.5); RDW Standard Deviation 46.6 fL (36.4-46.3); Red Blood Count 3.83 M/uL (4.63-6.08); White Blood Count 6.72 K/ul (4.8-10.8)
[2022-10-04] MEDS: CYANOCOBALAMIN (B-12) 500 MCG TABLET PO SCH (11:45)
[2022-10-04] MEDS: FINASTERIDE 5 MG TAB PO SCH (11:45)
[2022-10-04] MEDS: CETIRIZINE HCL 10 MG TABLET PO SCH (11:45)
[2022-10-04] MEDS: DIPYRIDAMOLE/ASPIRIN CAP PO SCH (11:45)
[2022-10-04] MEDS: FLUTICASONE PROPIONATE NA SPR 16 GM BTL SCH (11:45)
[2022-10-04] MEDS: CEROVITE ADV FORMULA TAB PO SCH (11:46)
[2022-10-04] MEDS: METOPROLOL SUCC 50MG EXT REL TAB PO SCH (11:46)
[2022-10-04] MEDS: PANTOprazole 40 MG TAB PO SCH (11:46)
[2022-10-04] MEDS: TAMSULOSIN HCL 0.4 MG CAP PO SCH (11:46)
[2022-10-04] MEDS: UMECLIDINIUM/VILANTEROL 62.5/25MCG 7 PUFFS/INHALER INH SCH (11:46)
--- NOTE | 2022-10-04 14:52 | Hospitalist Progress Note ---
Date of Service October 04, 2022 Assessment & Plan (1) Delirium: Plan: Hospital induced delirium overnight and received IM zyprexa. Would recommend avoiding this further given urine retention. (2) Weakness: Plan: Worsened possibly 2/2 covid. PT/OT ordered. He displayed some deficits with bed mobility, transfers, ambulation, balance and overall mobility. It is recommended that he continue with acute care PT while at [facility] progressing as per his tolerance. With his mental state he would definitely require 24/7 supervision with some assistance or possibly even a SNF/rehab stay upon discharge. We will continue to follow. Notably the family brought in his left foot/ankle brace which may help his mobility. (3) Acute urinary retention: Plan: Retaining 900cc fluid found on bladder scan today. No evidence of UTI. Macdonald placed and his mental status is now improved. He continues on home flomax and finasteride. (4) Hypoxemia: Plan: resolved, stopped decadron to avoid unwanted hyperglycemia. cont isolation precautions for covid-19. No wheezing present. Will cont to monitor off steroids. Nebulized bronchodilators as needed. He appears asymptomatic today. (5) Diabetes: Plan: Daughter reports hypoglycemia episodes at home on his home insulin regimen. He typically takes glargine 40 units every evening and a sliding scale of NovoLog with meals. Overnight he became hypoglycemic and glargine and NovoLog were held. Cont with loose novolog correction as needed. No glargine. May need to modify insulin regimen at discharge, based on new needs. (6) COPD (chronic obstructive pulmonary disease): Plan: Chronic, no wheezing on exam and no oxygen needs. Likely not in exacerbation at this time. Cont supportive care. (7) Coronary artery disease: Plan: chronic, controlled. Cont medical management. (8) Anemia: Plan: Chronic, at baseline. Cont to monitor. DVT proph: Lovenox DNR/DNI Dispo- SNF recommended, appreciate case management assistance. Janell Dillard DO [facility] Hospitalist Admission and Anticipated Discharge Date Admission Date: October 01, 2022 Subjective 82 yo M presents with hypoxia possibly related to covid-19 vs COPD exacerbation. he denies any SOB No issues with hypoxia in the last 36 hours. he denies any cough, fever, or chills Still remains very weak and is now intermittently delirious. Daughter is at bedside and confirms that he gets hospital delirium from changing environments frequently Review of Systems Review of Systems: All systems were reviewed and negative except as indicated on subjective above. Physical Exam Physical Exam: CONSTITUTIONAL: WNWD, vitals as above, no acute distress EYES: normal conjunctivae, no scleral icterus ENT: external ear and nose normal, MMM NECK: trachea midline RESPIRATORY: clear to auscultation bilaterally, no crackles, rales or wheezes CARDIOVASCULAR: regular rate and rhythm, S1 and 2 heard without murmurs, gallops or rubs, no JVD, no peripheral edema CHEST: inspection of chest was normal GASTROINTESTINAL: soft, nontender, no guarding, nondistended. MUSCULOSKELETAL: generalized weakness, head is normocephalic and atraumatic, SKIN: warm and dry NEUROLOGIC: CN 2-12 grossly intact, no sensory deficit, normal cognition, normal speech, no tremor PSYCHIATRIC: Somewhat confused although he is able to follow instructions and answer some questions. Results & Data Results & Data ([facility]) Vital Signs (Past 12 Hours) Vital Signs Temp Pulse Resp BP Pulse Ox O2 Del Method 10/04/22 14:20 37.0 C 67 16 148/66 H 92 Room Air 10/04/22 09:48 Room Air 10/04/22 08:40 36.9 C 65 18 163/73 H 95 Room Air Laboratory Results Short CBC 10/04/22 Range/Units 10:20 WBC 6.72 (4.8-10.8) K/ul Hgb 11.7 L (14.0-18.0) g/dl Hct 35.6 L (40.1-51.0) % Plt Count 117 L (130-400) K/uL BMP 10/04/22 10:20 Sodium 136 Potassium 3.9 Chloride 101 Carbon Dioxide 29 BUN 18 Creatinine 0.84 Glucose 104 H Calcium 8.2 L Medications Administered Current Inpatient Medications Acetaminophen (Acetaminophen 325 Mg Tab) 650 mg PO Q4H PRN PRN Reason: pain/fever Stop: 11/01/22 00:51 Albuterol (Albuterol Hfa 8 Gm Inhaler) 2 puffs INH BIDR PRN PRN Reason: Wheezing Stop: 11/01/22 18:59 Cetirizine HCl (Cetirizine Hcl 10 Mg Tablet) 10 mg PO DAILY ANGELA Stop: 11/01/22 08:59 Last Admin: 10/04/22 11:45 Dose: Not Given Cyanocobalamin (Cyanocobalamin (B-12) 500 Mcg Tablet) 1,000 mcg PO DAILY [facility] Stop: 11/01/22 08:59 Last Admin: 10/04/22 11:45 Dose: Not Given Dextrose (Dextrose 50% 50 Ml Syringe) 25 - 50 ml IV UD PRN; Protocol PRN Reason: Hypoglycemia Protocol Stop: 11/01/22 00:51 Dipyridamole/Aspirin (Dipyridamole/Aspirin Cap) 1 cap PO DAILY [facility] Stop: 11/01/22 08:59 Last Admin: 10/04/22 11:45 Dose: Not Given Enoxaparin Sodium (Enoxaparin Inj 40 Mg/0.4 Ml Syr) 40 mg SQ QAM [facility] Stop: 11/01/22 08:59 Last Admin: 10/04/22 08:56 Dose: 40 mg Finasteride (Finasteride 5 Mg Tab) 5 mg PO DAILY [facility] Stop: 11/01/22 08:59 Last Admin: 10/04/22 11:45 Dose: Not Given Fluticasone Propionate (Fluticasone Propionate Na Spr 16 Gm Btl) 2 sprays NA DAILY [facility] Stop: 11/01/22 08:59 Last Admin: 10/04/22 11:45 Dose: Not Given Glucagon (Glucagon For Inj 1 Mg Vial) 1 mg SQ UD PRN; Protocol PRN Reason: Hypoglycemia Protocol Stop: 11/01/22 00:51 Glucose (Glucose 40% Gel 15 Gm Tube) 15 - 30 gm PO UD PRN; Protocol PRN Reason: Hypoglycemia Protocol Stop: 11/01/22 00:51 Glucose (Glucose 10 Tab/Tube) 4 - 8 tab PO UD PRN; Protocol PRN Reason: Hypoglycemia Treatment Stop: 11/01/22 00:51 Promethazine HCl 6.25 mg/ (Sodium Chloride) 50.25 mls @ 201 mls/hr IV Q6H PRN PRN Reason: Nausea And Vomiting Stop: 11/01/22 00:51 Dexamethasone 6 mg/ Syringe 1.5 mls @ 1 mls/min IV DAILY [facility] Stop: 11/01/22 08:59 Last Admin: 10/02/22 09:20 Dose: 1 mls/min Insulin Aspart (Insulin Aspart Per Unit) 0 units SC ACHS [facility] Stop: 11/01/22 07:29 Last Admin: 10/04/22 12:41 Dose: Not Given Insulin Glargine (Lantus Per Unit Charge) 5 units SQ HS [facility] Stop: 11/02/22 20:59 Last Admin: 10/03/22 21:30 Dose: 5 units Metoprolol Succinate (Metoprolol Succ 50mg Ext Rel Tab) 50 mg PO DAILY [facility] Stop: 11/01/22 08:59 Last Admin: 10/04/22 11:46 Dose: Not Given Miscellaneous (Carbohydrates For Hypoglycemia ) 15 - 30 gm PO UD PRN PRN Reason: Hypoglycemia Protocol Stop: 11/01/22 00:51 Multivitamins/Minerals (Cerovite Adv Formula Tab) 1 tab PO QAM [facility] Stop: 11/01/22 08:59 Last Admin: 10/04/22 11:46 Dose: Not Given Olanzapine (Olanzapine 10 Mg/2.1 Ml Sdv) 2.5 mg IM Q4H PRN PRN Reason: Anxiety/Agitation Stop: 11/02/22 20:26 Last Admin: 10/03/22 21:10 Dose: 2.5 mg Pantoprazole Sodium (Pantoprazole 40 Mg Tab) 40 mg PO QAM [facility] Stop: 11/01/22 08:59 Last Admin: 10/04/22 11:46 Dose: Not Given Simvastatin (Simvastatin 20 Mg Tab) 20 mg PO HS [facility] Stop: 11/01/22 20:59 Last Admin: 10/03/22 19:38 Dose: 20 mg Tamsulosin HCl (Tamsulosin Hcl 0.4 Mg Cap) 0.4 mg PO DAILY [facility] Stop: 11/01/22 08:59 Last Admin: 10/04/22 11:46 Dose: Not Given Tramadol HCl (Tramadol Hcl 50 Mg Tablet) 50 mg PO BID PRN PRN Reason: Pain Stop: 11/01/22 00:51 Trazodone HCl (Trazodone Hcl 50 Mg Tab) 50 mg PO HS [facility] Stop: 11/01/22 20:59 Last Admin: 10/03/22 19:38 Dose: 50 mg Umeclidinium/Vilanterol (Umeclidinium/Vilanterol 62.5/25mcg 7 Puffs/Inhaler) 1 puffs INH DAILY [facility] Stop: 11/01/22 08:59 Last Admin: 10/04/22 11:46 Dose: Not Given
[2022-10-04] MEDS ORDERED: SODIUM CHLORIDE 0.9% 1000ML 1,000 ML IV SCH (15:00)
[2022-10-04 15:47] LABS: Appearance Urine Clear (Clear); Bacteria Urine Automated Negative (Negative); Bilirubin Urine Negative (Negative); Blood Urine Negative (Negative); Cast Urine Automated 0 /lpf (0-5); Color Urine Yellow; Epithelial Cell Urine Auto 0-5 /lpf (0-5); Glucose Urine UA Negative (Negative); Ketones Urine Trace (Negative); Leukocyte Esterase Urine Negative (Negative); Nitrite Urine Negative (Negative); RBC Urine Automated 0-4 /hpf (0-4); Urobilinogen Urine Negative (Negative); WBC Urine Automated 0 /hpf (0-5); pH Urine 7.5 (4.5-7.5)
[2022-10-04 16:18] LABS: Protein Urine Trace (Negative)
[2022-10-05] MEDS: SIMVASTATIN 20 MG TAB PO SCH (05:24)
[2022-10-05] MEDS: traZODone HCL 50 MG TAB PO SCH (05:24)
[2022-10-05] MEDS: CEROVITE ADV FORMULA TAB PO SCH (09:32)
[2022-10-05] MEDS: ENOXAPARIN INJ 40 MG/0.4 ML SYR SQ SCH (09:32)
[2022-10-05] MEDS: FINASTERIDE 5 MG TAB PO SCH (09:32)
[2022-10-05] MEDS: TAMSULOSIN HCL 0.4 MG CAP PO SCH (09:32)
[2022-10-05] MEDS: DIPYRIDAMOLE/ASPIRIN CAP PO SCH (09:32)
[2022-10-05] MEDS: METOPROLOL SUCC 50MG EXT REL TAB PO SCH (09:32)
[2022-10-05] MEDS: CETIRIZINE HCL 10 MG TABLET PO SCH (09:33)
[2022-10-05] MEDS: CYANOCOBALAMIN (B-12) 500 MCG TABLET PO SCH (09:33)
[2022-10-05] MEDS: UMECLIDINIUM/VILANTEROL 62.5/25MCG 7 PUFFS/INHALER INH SCH (09:33)
[2022-10-05] MEDS: PANTOprazole 40 MG TAB PO SCH (09:33)
[2022-10-05] MEDS: FLUTICASONE PROPIONATE NA SPR 16 GM BTL SCH (09:33)
[2022-10-05] MEDS: INSULIN ASPART PER UNIT SC SCH ×2 (09:46→14:07)
--- NOTE | 2022-10-05 13:05 | Hospitalist Progress Note ---
Date of Service October 05, 2022 Assessment & Plan (1) Weakness: Plan: - Worsened possibly 2/2 covid. - PT/OT - he displayed some deficits with bed mobility, transfers, ambulation, balance and overall mobility. With his mental state he would definitely require 24/7 supervision with some assistance or possibly even a SNF/rehab stay upon discharge - daughter is main caregiver and would like to take patient home on discharge - We will continue to follow (2) Acute urinary retention: Plan: - Retaining 900cc fluid found on bladder scan 10/04/2022. - No evidence of UTI. F - wolfe placed 10/04/2022 - He continues on home flomax and finasteride. - TOV today 10/05/2022 - if fails will discharge with wolfe and have follow up with PCP and Urology on discharge (3) Hypoxemia: Plan: - resolved, - stopped decadron to avoid unwanted hyperglycemia. - cont isolation precautions for covid-19. - No wheezing present. - Will cont to monitor off steroids - no distress or symptoms on RA (4) Diabetes: Plan: - Daughter reports hypoglycemia episodes at home on his home insulin regimen. - He typically takes glargine 40 units every evening and a sliding scale of NovoLog with meals. - Cont with loose novolog correction as needed. - discontinue glargine. - patient's A1c is 6.0% and given his age and frailty, goal is much higher than this - and given repeated episodes of hypoglycemia - will likely discontinue insulin on discharge and prescribe metformin with PCP follow up (5) COPD (chronic obstructive pulmonary disease): Plan: Chronic, no wheezing on exam and no oxygen needs. Likely not in exacerbation at this time. Cont supportive care. (6) Coronary artery disease: Plan: chronic, controlled. Cont medical management. (7) Anemia: Plan: Chronic, at baseline. Cont to monitor. Plan DVT ppx: Lovenox Code Status: DNR/DNI Dispo- SNF recommended, appreciate case management assistance - family to take patient home Servando Fuller MD [facility] Medicine Admission and Anticipated Discharge Date Admission Date: October 01, 2022 Subjective Patient with COPD, HTN, h/o CVA, HFpEF, DM2, legally blind, h/o tobacco and alcohol use disorder presented with hypoxia from home and found to have COVID19 positive. Given Decadron in setting of COVID19 and hypoxia. Patient improved and tolerating RA, Decadron discontinued. During hospitalization had urinary retention requiring wolfe placement, pending TOV prior to likely discharge home with family support as full caregivers. Patient feels well today. Denies any complains of shortness of breath, cough, n/v/d, chest pain, abdominal pain, dysuria, fever or chills. Review of Systems Review of Systems: All systems were reviewed and negative except as indicated on subjective above. Physical Exam Physical Exam: CONSTITUTIONAL: WNWD, no acute dis tress EYES: alessia l conjunctivae, no scleral icterus E NT: external ear and nose normal, M MM NECK: trachea midline RESPIRATOR Y: clear to auscu ltation bilaterall y, no crackles, ra les or wheezes CAR DIOVASCULAR: regu lar rate and rhyth m, S1 and 2 heard without murmurs, g allops or rubs, no JVD, no periphera l edema CHEST: in spection of chest was normal GASTROI NTESTINAL: soft, nontender, no guar ding, nondistended . MUSCULOSKELETAL: generalized weak ness, head is norm ocephalic and atra umatic, SKIN: war m and dry NEUROLOG IC: CN 2-12 gross ly intact, no sens ory deficit, alessia l cognition, alessia l speech, no tremo r PSYCHIATRIC: Neli ewhat confused alt barb he is able t o follow instructi ons and answer neli e questions. Results & Data Results & Data ([facility]) Vital Signs (Past 12 Hours) Vital Signs Temp Pulse Resp BP Pulse Ox O2 Del Method 10/05/22 08:24 36.4 C L 70 20 150/75 H 94 Room Air Diagnostic Findings Laboratory Results WBC 6.72 K/ul (4.8-10.8) 10/04/22 10:20 RBC 3.83 M/uL (4.63-6.08) L 10/04/22 10:20 Hgb 11.7 g/dl (14.0-18.0) L 10/04/22 10:20 Hct 35.6 % (40.1-51.0) L 10/04/22 10:20 MCV 93.0 fL (80.0-100.0) 10/04/22 10:20 MCH 30.5 pg (25.0-34.0) 10/04/22 10:20 MCHC 32.9 g/dL (32.0-36.0) 10/04/22 10:20 RDW Std Deviation 46.6 fL (36.4-46.3) H 10/04/22 10:20 RDW Coeff of Eliana 13.6 % (11.5-14.5) 10/04/22 10:20 Plt Count 117 K/uL (130-400) L 10/04/22 10:20 MPV 11.7 fL (9.4-12.4) 10/04/22 10:20 Immature Gran % (Auto) 0.4 % 10/02/22 10:06 Neut % (Auto) 89.6 % 10/02/22 10:06 Lymph % (Auto) 4.9 % 10/02/22 10:06 [place] % (Auto) 4.9 % 10/02/22 10:06 Eos % (Auto) 0.0 % 10/02/22 10:06 Baso % (Auto) 0.2 % 10/02/22 10:06 Neut # (Auto) 5.12 K/uL (1.4-6.5) 10/02/22 10:06 Lymph # (Auto) 0.28 K/uL (1.2-3.4) L 10/02/22 10:06 [place] # (Auto) 0.28 K/uL (0.24-0.82) 10/02/22 10:06 Eos # (Auto) 0.00 K/uL (0-0.50) 10/02/22 10:06 Baso # (Auto) 0.01 K/uL (0-0.2) 10/02/22 10:06 Immature Gran # (Auto) 0.02 K/uL (0.00-0.02) 10/02/22 10:06 Platelet Estimate Decreased (Normal) L 10/01/22 18:45 Sodium 136 mmol/L (136-145) 10/04/22 10:20 Potassium 3.9 mmol/L (3.5-5.1) 10/04/22 10:20 Chloride 101 mmol/L (98-107) 10/04/22 10:20 Carbon Dioxide 29 mmol/L (21-32) 10/04/22 10:20 Anion Gap 6 (3-11) 10/04/22 10:20 BUN 18 mg/dl (6-23) 10/04/22 10:20 Creatinine 0.84 mg/dl (0.6-1.4) 10/04/22 10:20 Est Cr Clr Drug Dosing 58.3 ml/min 10/04/22 10:20 Est GFR ( Amer) 93.8 ml/min 10/04/22 10:20 Est GFR (Non-Af Amer) 81.0 ml/min 10/04/22 10:20 BUN/Creatinine Ratio 21.4 (10-20) H 10/04/22 10:20 Glucose 104 mg/dl (70-99(Fasting)) H 10/04/22 10:20 POC Glucose 235 mg/dl (70-99) H 10/05/22 12:10 Estimat Average Glucose 126 mg/dl 10/02/22 10:06 Hemoglobin A1c 6.0 % (4.5-5.6) H 10/02/22 10:06 Calcium 8.2 mg/dl (8.5-10.1) L 10/04/22 10:20 Phosphorus 2.2 mg/dl (2.5-4.9) L 10/03/22 09:56 Magnesium 2.1 mg/dl (1.7-2.4) 10/03/22 09:56 Total Bilirubin 0.4 mg/dl (0.2-1.0) 10/01/22 18:45 AST 33 U/L (13-39) 10/01/22 18:45 ALT 21 U/L (7-52) 10/01/22 18:45 Alkaline Phosphatase 123 U/L (34-104) H 10/01/22 18:45 Troponin I High Sens 12.0 pg/ml (0-20) 10/01/22 18:45 B-Natriuretic Peptide 235 pg/ml (0-100) H 10/01/22 18:45 Total Protein 6.2 gm/dl (6.0-8.3) 10/01/22 18:45 Albumin 3.3 gm/dl (3.4-5.0) L 10/01/22 18:45 Globulin 2.9 gm/dl (2.5-4.0) 10/01/22 18:45 Albumin/Globulin Ratio 1.1 (0.9-2) 10/01/22 18:45 TSH 0.759 uIu/ml (0.300-4.500) 10/01/22 18:45 Urine Color Yellow 10/04/22 15:20 Urine Appearance Clear (Clear) 10/04/22 15:20 Urine pH 7.5 (4.5-7.5) 10/04/22 15:20 Ur Specific [place] 1.010 (1.000-1.030) 10/04/22 15:20 Urine Protein Trace (Negative) H 10/04/22 15:20 Urine Glucose (UA) Negative (Negative) 10/04/22 15:20 Urine Ketones Trace (Negative) H 10/04/22 15:20 Urine Blood Negative (Negative) 10/04/22 15:20 Urine Nitrite Negative (Negative) 10/04/22 15:20 Urine Bilirubin Negative (Negative) 10/04/22 15:20 Urine Urobilinogen Negative (Negative) 10/04/22 15:20 Ur Leukocyte Esterase Negative (Negative) 10/04/22 15:20 Urine WBC (Auto) 0 /hpf (0-5) 10/04/22 15:20 Urine RBC (Auto) 0-4 /hpf (0-4) 10/04/22 15:20 U Hyaline Cast (Auto) 0 /lpf (0-5) 10/04/22 15:20 U Epithel Cells (Auto) 0-5 /lpf (0-5) 10/04/22 15:20 Urine Bacteria (Auto) Negative (Negative) 10/04/22 15:20 SARS-CoV-2 (PCR) POSITIVE (Negative) A* 10/01/22 18:45 Influenza Type A (PCR) Negative (Neg) 10/01/22 18:45 Influenza Type B (PCR) Negative (Neg) 10/01/22 18:45 RSV (RT-PCR) Negative (Neg) 10/01/22 18:45 Impressions Chest X-Ray 10/01/22 18:36 SINGLE VIEW CHEST CLINICAL HISTORY: Weakness. Dyspnea. FINDINGS: 2 AP, portable, upright chest radiographs are compared to study dated 03/05/2022. The patient is status post midline sternotomy. The heart is enlarged noting atherosclerotic calcification of the thoracic aorta. The pulmonary vasculature is noncongested. Chronic interstitial thickening is similar to previous. There is bibasilar scarring/atelectasis. No airspace consolidation or large pleural effusion is identified. Calcified mediastinal lymph nodes are suggested. No pneumothorax is seen. The skeletal structures are osteopenic. The bony thorax is grossly intact. Degenerative change is noted in the shoulders. Superior subluxation of both humeral heads suggest chronic bilateral rotator cuff injury. IMPRESSION: Cardiomegaly with no acute cardiopulmonary abnormality identified. ACT 112: Negative or not required by law. Electronically signed by: Daniel Ellsworth M.D. 10/01/2022 8:51 PM Medications Administered Current Inpatient Medications Acetaminophen (Acetaminophen 325 Mg Tab) 650 mg PO Q4H PRN PRN Reason: pain/fever Stop: 11/01/22 00:51 Albuterol (Albuterol Hfa 8 Gm Inhaler) 2 puffs INH BIDR PRN PRN Reason: Wheezing Stop: 11/01/22 18:59 Cetirizine HCl (Cetirizine Hcl 10 Mg Tablet) 10 mg PO DAILY ANGELA Stop: 11/01/22 08:59 Last Admin: 10/05/22 09:33 Dose: 10 mg Cyanocobalamin (Cyanocobalamin (B-12) 500 Mcg Tablet) 1,000 mcg PO DAILY ANGELA Stop: 11/01/22 08:59 Last Admin: 10/05/22 09:33 Dose: 1,000 mcg Dextrose (Dextrose 50% 50 Ml Syringe) 25 - 50 ml IV UD PRN; Protocol PRN Reason: Hypoglycemia Protocol Stop: 11/01/22 00:51 Dipyridamole/Aspirin (Dipyridamole/Aspirin Cap) 1 cap PO DAILY ANGELA Stop: 11/01/22 08:59 Last Admin: 10/05/22 09:32 Dose: 1 cap Enoxaparin Sodium (Enoxaparin Inj 40 Mg/0.4 Ml Syr) 40 mg SQ QAM ANGELA Stop: 11/01/22 08:59 Last Admin: 10/05/22 09:32 Dose: 40 mg Finasteride (Finasteride 5 Mg Tab) 5 mg PO DAILY ANGELA Stop: 11/01/22 08:59 Last Admin: 10/05/22 09:32 Dose: 5 mg Fluticasone Propionate (Fluticasone Propionate Na Spr 16 Gm Btl) 2 sprays NA DAILY ANGELA Stop: 11/01/22 08:59 Last Admin: 10/05/22 09:33 Dose: 2 sprays Glucagon (Glucagon For Inj 1 Mg Vial) 1 mg SQ UD PRN; Protocol PRN Reason: Hypoglycemia Protocol Stop: 11/01/22 00:51 Glucose (Glucose 40% Gel 15 Gm Tube) 15 - 30 gm PO UD PRN; Protocol PRN Reason: Hypoglycemia Protocol Stop: 11/01/22 00:51 Glucose (Glucose 10 Tab/Tube) 4 - 8 tab PO UD PRN; Protocol PRN Reason: Hypoglycemia Treatment Stop: 11/01/22 00:51 Promethazine HCl 6.25 mg/ (Sodium Chloride) 50.25 mls @ 201 mls/hr IV Q6H PRN PRN Reason: Nausea And Vomiting Stop: 11/01/22 00:51 Insulin Aspart (Insulin Aspart Per Unit) 0 units SC ACHS ANGELA Stop: 11/01/22 07:29 Last Admin: 10/05/22 09:46 Dose: 3 units Metoprolol Succinate (Metoprolol Succ 50mg Ext Rel Tab) 50 mg PO DAILY ANGELA Stop: 11/01/22 08:59 Last Admin: 10/05/22 09:32 Dose: 50 mg Miscellaneous (Carbohydrates For Hypoglycemia ) 15 - 30 gm PO UD PRN PRN Reason: Hypoglycemia Protocol Stop: 11/01/22 00:51 Multivitamins/Minerals (Cerovite Adv Formula Tab) 1 tab PO QAM ANGELA Stop: 11/01/22 08:59 Last Admin: 10/05/22 09:32 Dose: 1 tab Pantoprazole Sodium (Pantoprazole 40 Mg Tab) 40 mg PO QAM ANGELA Stop: 11/01/22 08:59 Last Admin: 10/05/22 09:33 Dose: 40 mg Simvastatin (Simvastatin 20 Mg Tab) 20 mg PO HS ANGELA Stop: 11/01/22 20:59 Last Admin: 10/05/22 05:24 Dose: Not Given Tamsulosin HCl (Tamsulosin Hcl 0.4 Mg Cap) 0.4 mg PO DAILY ANGELA Stop: 11/01/22 08:59 Last Admin: 10/05/22 09:32 Dose: 0.4 mg Tramadol HCl (Tramadol Hcl 50 Mg Tablet) 50 mg PO BID PRN PRN Reason: Pain Stop: 11/01/22 00:51 Trazodone HCl (Trazodone Hcl 50 Mg Tab) 50 mg PO [facility] Stop: 11/01/22 20:59 Last Admin: 10/05/22 05:24 Dose: Not Given Umeclidinium/Vilanterol (Umeclidinium/Vilanterol 62.5/25mcg 7 Puffs/Inhaler) 1 puffs INH DAILY COUNTS INCLUDE 234 BEDS AT THE [facility] Stop: 11/01/22 08:59 Last Admin: 10/05/22 09:33 Dose: 1 puffs
--- NOTE | 2022-10-05 16:09 | Discharge Summary ---
Date of Service October 05, 2022 Admission HPI Per Admitting Provider History obtained from patient and records. 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 Last confinement February 2022 for right femoral neck fracture status post surgery. Patient feeling weak the last few days. Shortness of breath mostly on exertion. Cough symptoms productive of clear sputum. No chest pain. Sick COVID-19 contacts at home. Patient has not received COVID-19 vaccination. O2 sats of 80s upon EMS arrival at patient's home. Lowest O2 sats at the ER noted to be 92 on room air. DuoNeb administered at the ER. 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 Admission Exam Per Admitting Provider GENERAL: Comfortable, pleasant, no respiratory distress SKIN: Pallor, warm HEENT: Pale palpebral conjunctivae, no ptosis, dry buccal mucosa NECK : Supple, no tenderness CHEST : CTA, no tenderness HEART : RRR, systolic murmur best heard over left sternal border ABDOMEN: Some distention, nontender EXTREMITIES : Minimal LE swelling, no LE tenderness, no other conspicuous deformities noted NEUROLOGIC : Coherent, visual activity not tested, no facial asymmetry, gait and stance not assessed Principal Diagnosis COVID19 Discharge Exam CONSTITUTIONAL: WNWD, no acute distress EYES: normal conjunctivae, no scleral icterus ENT: external ear and nose normal, MMM NECK: trachea midline RESPIRATORY: clear to auscultation bilaterally, no crackles, rales or wheezes CARDIOVASCULAR: regular rate and rhythm, S1 and 2 heard without murmurs, gallops or rubs, no JVD, no peripheral edema CHEST: inspection of chest was normal GASTROINTESTINAL: soft, nontender, no guarding, nondistended. MUSCULOSKELETAL: generalized weakness, head is normocephalic and atraumatic, SKIN: warm and dry NEUROLOGIC: CN 2-12 grossly intact, no sensory deficit, normal cognition, normal speech, no tremor PSYCHIATRIC: Somewhat confused although he is able to follow instructions and answer some questions. Discharge Data Allergies Allergy/AdvReac Type Severity Reaction Status Date / Time Penicillins Allergy Intermediate RASH ALONE Verified 03/05/22 15:20 aspirin Allergy Unknown BUT Verified 03/05/22 15:20 PATIENT TAKES AGGRENOX AT HOME? Consultations 10/01/22 20:15 ED Decision to Admit Stat Hospital Course (1) Weakness: - Worsened possibly 2/2 covid. - PT/OT - he displayed some deficits with bed mobility, transfers, ambulation, balance and overall mobility. With his mental state he would definitely require 24/7 supervision with some assistance or possibly even a SNF/rehab stay upon discharge - daughter is main caregiver and would like to take patient home on discharge - PT recommends home with 24 hour supervision - ok for discharge home 10/05/2022 (2) Acute urinary retention: - Retaining 900cc fluid found on bladder scan 10/04/2022. - No evidence of UTI. F - wolfe placed 10/04/2022 - He continues on home flomax and finasteride. - TOV today 10/05/2022 - patient voided multiple times after catheter removed including up to 300cc on one void - ok for discharge home with follow up in office for further management of BPH (3) Hypoxemia: - resolved, - stopped decadron to avoid unwanted hyperglycemia. - cont isolation precautions for covid-19. - No wheezing present. - Will cont to monitor off steroids - no distress or symptoms on RA (4) Diabetes: - Daughter reports hypoglycemia episodes at home on his home insulin regimen. - He typically takes glargine 40 units every evening and a sliding scale of NovoLog with meals. - Cont with loose novolog correction as needed. - discontinue glargine. - patient's A1c is 6.0% and given his age and frailty, goal is much higher than this - and given repeated episodes of hypoglycemia - will likely discontinue insulin on discharge and prescribe metformin with PCP follow up, continue SSI as needed (5) COPD (chronic obstructive pulmonary disease): Chronic, no wheezing on exam and no oxygen needs. Likely not in exacerbation at this time. Cont supportive care. (6) Coronary artery disease: chronic, controlled. Cont medical management. (7) Anemia: Chronic, at baseline. Cont to monitor. Plan DVT ppx: Lovenox Code Status: DNR/DNI Dispo- SNF recommended, appreciate case management assistance - family to take patient home Servando Fuller MD [facility] Medicine Total Time Total Time Spent Total Time Spent (In Minutes): 45 Total Time Includes: Examination of the Patient, Discharge Planning and Medication Reconciliation Discharge Plan Discharge Items Patient Disposition: Home - Self-Care Reason For Visit: COVID, TRANSIENT HYPOXEMIA Discharge Diagnosis: COVID19, urinary retention Activity: Resume your previous activity Non-emergency contact: Primary Care Provider and Urologist Call non-emergency contact if: you have any medication questions and your symptoms worsen Follow-up/Referrals: Rudy Yoon M.D. [Primary Care Provider] - Diet: Carb Consistent or DM2 and Heart Healthy Addtl Attending Provider Instructions: You were admitted for weakness and low oxygen, found to have COVID19 infection. You were started on the treatment for symptomatic COVID19 with steroids called Decadron. Your oxygenation improved and you no longer required oxygen supplementation. You were seen by physical therapy and recommended 24/7 care but can return home as your daughter is an aide and your primary caregiver. You also had an episode of urinary retention requiring the use of a urinary catheter. You had a trial of void that was successful as you urinated multiple times after catheter removal. Please follow up with primary care doctor and urologist for your enlarged prostate. You also had history of recurrent hypoglycemic (low blood sugar) episodes on your home insulin regimen. Your Hemoglobin A1c was only 6% and can try to manage your diabetes with minimal insulin. Your Insulin Glargine will be discontinued. You are being started on metformin 500mg 2x/day and can continue the sliding scale insulin based on the fingerstick glucose levels. You should follow up with your primary care doctor for further management of your diabetes. Pending Studies at Discharge: No Stand-Alone Forms: My [facility] [email or web address], Smoking Cessation Medications and DC Order Prescriptions: New metformin 500 mg tablet extended release 24 hr 500 mg PO BID Qty: 60 0RF Continued potassium chloride 20 mEq tablet extended release 40 meq PO DAILY prochlorperazine maleate 5 mg tablet 5 - 10 mg PO Q8 PRN (Reason: Nausea) fluticasone propionate 50 mcg/actuation spray,suspension 2 spray INTRANASAL DAILY Rx Instructions: 2 sprays each nostril tamsulosin 0.4 mg capsule 0.4 mg PO DAILY insulin aspart U-100 [Novolog Flexpen U-100 Insulin] 100 unit/mL (3 mL) insulin pen 1 sliding scale dose SUBCUT TIDM Rx Instructions: siding scale dose 3 times a day with meals cyanocobalamin (vitamin B-12) 1,000 mcg Tablet 1,000 mcg PO DAILY finasteride 5 mg tablet 5 mg PO DAILY cetirizine 10 mg Tablet 10 mg PO DAILY furosemide 40 mg tablet 40 mg PO QAM aspirin-dipyridamole 25-200 mg capsule, ER multiphase 12 hr 1 cap PO DAILY trazodone 50 mg Tablet 50 mg PO HS metoprolol succinate 50 mg tablet extended release 24 hr 50 mg PO DAILY tramadol 50 mg tablet 50 mg PO BID PRN (Reason: Pain) pantoprazole 40 mg tablet,delayed release (DR/EC) 40 mg PO QAM simvastatin 20 mg tablet 20 mg PO HS albuterol sulfate 90 mcg/actuation HFA aerosol inhaler 2 puff INHALATION Q6 PRN (Reason: Shortness Of Breath Or Wheezing) cholecalciferol (vitamin D3) 1,250 mcg (50,000 unit) capsule 1,250 mcg PO WK PreserVision AREDS 7,160 unit- 113 mg-100 unit Tablet 1 tab PO QAM Anoro Ellipta 62.5-25 mcg/actuation blister with device 1 ea INHALATION DAILY Discontinued insulin glargine [Lantus Solostar U-100 Insulin] 100 unit/mL (3 mL) insulin pen 40 unit SUBCUT HS Discharge Orders: Discharge Order (Routine); Ordered 10/05/22 Ordered By: Servando Martinez/Other Patient Handouts: Managing Type 2 Diabetes Admission Data Admit Date/Time: 10/01/22 23:06 Attending Provider: Servando Fuller Admit Provider: Raf Lau Primary Care Provider: Rudy Yoon Other Providers: Raf Lau
== END 2022-10-05 17:33 | disposition home or self-care (01) | DRG 178 ==
LOC: ED 18:23 → 3N 23:06 → SUATTDRO 23:06 → 3N 10-02 00:19